=== PATIENT | female | born 1965 | race Caucasian/White ===

== ENCOUNTER 2022-08-16 14:27 | Inpatient (IN) ==
[2022-08-16] MEDS ORDERED: ALBUT/IPRATROP 3MG/0.5MG NEB 3 ML VIAL NEB STA ×2 (14:42→17:43)
--- NOTE | 2022-08-16 14:42 | Emergency Department Note ---
History of Present Illness General Chief Complaint: Shortness of Breath/Dyspnea Stated Complaint: SHORTNESS OF BREATH Time Seen by Provider: 08/16/22 14:34 History of Present Illness Provider Complaint: shortness of breath Onset (ago): day(s) (5) Severity: mild Consistency/Duration: + constant Maximum Pain Intensity: 2 Current Pain Intensity: 2 Relieved By: + nothing Exacerbated By: + exertion and + coughing Context: no choking/aspiration, no recent travel or no trauma/injury Known history of: COPD and other (lung cancer) Associated symptoms: + chest pain, + fever, + cough, + wheezing, + sputum production and + chest congestion; no lower extremity pain, no polyuria, no palpitations, no hemoptysis, no diaphoresis, no nausea/vomiting, no syncope, no abdominal pain or no rash Home Medications Medication Instructions Recorded Confirmed Type bupropion HCl 150 mg tablet,12 hr 150 mg PO BID 09/04/19 08/16/22 History sustained-release calcium carbonate 500 mg-vitamin 1 tab PO BID 09/04/19 08/16/22 History D3 5 mcg (200 unit) tablet (Calcium 500 + D) sertraline 50 mg tablet 50 mg PO HS 09/04/19 08/16/22 History tiotropium bromide 18 mcg capsule 1 cap inhalation QAM 09/04/19 08/16/22 History with inhalation device (Spiriva with HandiHaler) budesonide-formoterol HFA 160 2 puff inhalation BID 09/16/19 08/16/22 History mcg-4.5 mcg/actuation aerosol inhaler (Symbicort) Marijuana 1 dose inhalation UD PRN 11/25/20 08/16/22 History PAIN/ANXIETY fluticasone propionate 50 1 spray intranasal QAM 11/25/20 08/16/22 History mcg/actuation nasal spray,suspension benzonatate 100 mg capsule 100 mg PO TID PRN Cough 08/16/22 08/16/22 History cyclobenzaprine 10 mg tablet 10 mg PO HS PRN Muscle Spasm 08/16/22 08/16/22 History losartan 50 mg tablet 50 mg PO DAILY 08/16/22 08/16/22 History prochlorperazine maleate 10 mg 10 mg PO Q6H PRN Nausea 08/16/22 08/16/22 History tablet Allergies Allergy/AdvReac Type Severity Reaction Status Date / Time Penicillins Allergy Intermediate Hives Verified 08/16/22 16:07 Sulfa (Sulfonamide Allergy Intermediate Hives, Verified 08/16/22 16:07 Antibiotics) possible dyspnea Past Med/Surg History Medical History (Updated 08/16/22 @ 18:[address] PA-C) COPD (chronic obstructive pulmonary disease) stable Depression Diverticular disease GERD (gastroesophageal reflux disease) occasional HTN (hypertension) Kidney stone Non-small cell carcinoma of lung Obesity Seasonal allergies Sleep apnea cannot tolerate CPAP Surgical History History of cholecystectomy History of colonoscopy History of esophagogastroduodenoscopy (EGD) History of lithotripsy x3; S/P Cystoscopy, right ureteroscopy, RPG, stent, laser lithotripsy (11/02/19): LMA#4 at [facility] History of lumbar fusion L4-5 History of total hysterectomy History of tubal ligation History of wisdom tooth extraction Nausea and vomiting after administration of anesthetic agent Family History Daughter Family history of diabetes mellitus (DM) Uncle Family history of diabetes mellitus (DM) Grandfather FHx: colon cancer Grandfather (Paternal) FHx: colon cancer Mother Cancer Grandmother (Maternal) Heart disease Social History Smoking Status: Former smoker Tobacco Type: Cigarettes Second Hand Exposure: Yes (IN THE PAST); Hx Alcohol Use: Yes Alcohol type: beer and hard liquor Hx Substance Use: Yes Substance Use Type Other:: Medical marijuana use (use daily, inhalation) Preferred Language: Ukrainian Communication Ability: Effective Visual Impairment: No Limitations Entry Operator Required: No Beliefs That Will Affect Care: None Current Living Situation: Family Current Living Situation Comment: SISTER Feels Safe at Home: Yes Assistive Devices: Denture - Upper and Glasses Review of Systems A total of 10 systems reviewed and were otherwise negative Physical Exam Vital Signs: Vital Signs - 24 hr 08/16/22 14:28 08/16/22 15:10 08/16/22 15:03 Temperature 36.9 C Temperature Source Oral Pulse Rate 121 H Pulse Rate from Sp O2 Sensor 121 H Respiratory Rate 16 Respiratory Effort / Characteristics Non-Labored Sponta neous SOB on Exert ion Respiratory Depth Normal Respiratory Patter n Regular Blood Pressure 124/84 Blood Pressure Melani n 97 Pulse Oximetry 94 Oxygen Delivery Me thod Room Air Sepsis Recent Feve r Within 48 Hours Yes Sepsis New/Unexpla ined Change in Men nino Status N/A Sepsis Action Take n by Nursing No Action Required 08/16/22 16:00 08/16/22 17:00 08/16/22 17:32 Temperature Temperature Source Pulse Rate 117 H 109 H 114 H Pulse Rate from Sp O2 Sensor 116 H 109 H 114 H Respiratory Rate 18 18 20 Respiratory Effort / Characteristics Respiratory Depth Respiratory Patter n Blood Pressure 117/92 112/77 134/91 Blood Pressure Melani n 100 88 105 Pulse Oximetry 92 93 97 Oxygen Delivery Me thod Sepsis Recent Feve r Within 48 Hours Sepsis New/Unexpla ined Change in Men nino Status Sepsis Action Take n by Nursing 08/16/22 18:00 Temperature Temperature Source Pulse Rate 105 H Pulse Rate from Sp O2 Sensor 106 H Respiratory Rate 25 H Respiratory Effort / Characteristics Respiratory Depth Respiratory Patter n Blood Pressure 115/77 Blood Pressure Melani n 89 Pulse Oximetry 93 Oxygen Delivery Me thod Sepsis Recent Feve r Within 48 Hours Sepsis New/Unexpla ined Change in Men nino Status Sepsis Action Take n by Nursing Physical Exam: Physical Exam GENERAL: She is oriented to person, place, and time. She appears well-developed and well-nourished. She does not appear distressed. HENT: Exam performed. -Head: Normocephalic and atraumatic. -Right Ear: External ear normal. No mastoid tenderness. -Left Ear: External ear normal. No mastoid tenderness. -Mouth/Throat: The oropharynx is clear and moist. No trismus in the jaw. No dental abscesses or uvula swelling. No oropharyngeal exudate or tonsillar abscesses. EYES: Conjunctivae and EOM are normal. Pupils are equal, round, and reactive to light. Right eye exhibits no discharge. Left eye exhibits no discharge. No scleral icterus. NECK: Normal range of motion. Neck supple. No JVD present. No spinous process tenderness present. No carotid bruit present. No rigidity. No tracheal deviation and normal range of motion present. No Brudzinski's sign and no Kernig's sign noted. CV: Normal rate, regular rhythm, normal heart sounds and intact distal pulses. There is no peripheral edema. Palpable radial pulses bue. PULM/CHEST: Scant expiratory wheezes bilaterally. -Chest Wall: She exhibits no tenderness. ABD: The abdomen is soft. Bowel sounds are normal. She has no distension. No mass is present. There is no tenderness. There is no rebound, no guarding, no Harper's sign and no tenderness at McBurney's point. Rovsig negative MUSC/SKEL: Normal range of motion. There is no peripheral edema, tenderness or deformity. LYMPH: No cervical adenopathy. NEURO: She is alert and oriented to person, place, and time. She has normal strength. No cranial nerve deficit or sensory deficit. Coordination and gait normal. GCS eye subscore is 4. GCS verbal subscore is 5. GCS motor subscore is 6. Cerebellar tests wnl. SKIN: Skin is warm and dry. She is not diaphoretic. PSYCH: She has a normal mood and affect. Behavior is normal. Judgment and thought content normal. Course Course 1434: The patient was evaluated in room B7. A complete history and physical exam was performed Cardiac monitoring: An order was placed for continuous cardiac monitoring. The monitor shows a rate of 100 with sinus rhythm 1730: Vital signs stable. Labs within normal limits with exception of magnesium 1.1. Magnesium repletion restart in the emergency department. CT of the chest negative for PE. Patient does state that she felt better after receiving 1 DuoNeb. On real sedation lungs patient is having increased wheezing after DuoNeb treatment. We will repeat DuoNeb treatments and treat the patient with Solu-Medrol. Patient will be admitted to the [facility]ist team for COPD exacerbation as well as hypomagnesemia. 1754: Discussed case with Nathaly BRENNAN for [facility] who stated to admit to Dr. Vincent. Administered Medications Discontinued Medications Albuterol (Albut/Ipratrop 3mg/0.5mg Neb 3 Ml Vial) 3 ml NEB NOW STA; Protocol Stop: 08/16/22 14:43 Last Admin: 08/16/22 15:16 Dose: 3 ml Documented By: MT Albuterol (Albut/Ipratrop 3mg/0.5mg Neb 3 Ml Vial) 3 ml NEB NOW STA; Protocol Stop: 08/16/22 17:44 Last Admin: 08/16/22 17:57 Dose: 3 ml Documented By: MIMI Magnesium Sulfate/Dextrose (Magnesium Sulfate / D5w) 1 gm in 100 mls @ 100 mls/hr IV Q1H FREDI Stop: 08/16/22 18:17 Last Infusion: 08/16/22 18:37 Dose: 0 mls/hr Documented By: Admin: 08/16/22 17:33 Dose: 100 mls/hr Documented By: Infusion: 08/16/22 17:33 Dose: 100 mls/hr Documented By: Admin: 08/16/22 16:39 Dose: 100 mls/hr Documented By: JUN Ioversol (Optiray 320 500ml) 120 ml IV ONCE ONE Stop: 08/16/22 16:28 Last Admin: 08/16/22 16:27 Dose: 120 ml Documented By: ANDREI Methylprednisolone (Methylprednisolone 125 Mg/2 Ml Vial) 125 mg IV NOW STA Stop: 08/16/22 17:44 Last Admin: 08/16/22 17:57 Dose: 125 mg Documented By: MIMI Medical Decision Making Laboratory Data Result diagrams: 08/16/22 15:02 08/16/22 15:02 Lab Results 08/16/22 08/16/22 08/16/22 Range/Units 15:02 15:02 15:02 WBC 4.68 L (4.8-10.8) K/ul RBC 2.68 L (3.93-5.22) M/uL Hgb 9.8 L (12.0-16.0) g/dl Hct 28.1 L (34.1-44.9) % MCV 104.9 H (80.0-100.0) fL MCH 36.6 H (25.0-34.0) pg MCHC 34.9 (32.0-36.0) g/dL RDW Std Deviation 48.9 H (36.4-46.3) fL RDW Coeff of Shai 13.5 (11.5-14.5) % Plt Count 203 (130-400) K/uL MPV 9.8 (9.4-12.3) fL Immature Gran % (Auto) 1.5 % Neut % (Auto) 64.7 % Lymph % (Auto) 13.5 % [place] % (Auto) 19.9 % Eos % (Auto) 0.0 % Baso % (Auto) 0.4 % Neut # (Auto) 3.03 (1.4-6.5) K/uL Lymph # (Auto) 0.63 L (1.2-3.4) K/uL [place] # (Auto) 0.93 H (0.24-0.82) K/uL Eos # (Auto) 0.00 (0-0.50) K/uL Baso # (Auto) 0.02 (0-0.2) K/uL Immature Gran # (Auto) 0.07 H (0.00-0.02) K/uL Absolute Nucleated RBC 0.14 H (0-0) K/uL Nucleated RBC % (auto) 3.0 % RBC Morphology Unremarkable PT (9.0-12.0) Seconds INR (0.9-1.1) APTT (21.0-31.0) Seconds PTT Ratio VBG pH (7.36-7.41) VBG pCO2 (38-50) mmHg VBG pO2 mmHg VBG HCO3 mmol/L VBG O2 Saturation % VBG Base Excess mEq/L Sodium 137 (136-145) mmol/L Potassium 3.6 (3.5-5.1) mmol/L Chloride 103 (98-107) mmol/L Carbon Dioxide 24 (21-32) mmol/L Anion Gap 10 (3-11) BUN 18 (6-23) mg/dl Creatinine 0.83 (0.6-1.2) mg/dl Est Cr Clr Drug Dosing 61.2 ml/min Est GFR ( Amer) 90.1 ml/min Est GFR (Non-Af Amer) 77.7 ml/min BUN/Creatinine Ratio 21.7 H (10-20) Glucose 110 H (70-99(Fasting)) mg/dl Lactate 2.0 (0.4-2.0) mmol/L Calcium 9.1 (8.5-10.1) mg/dl Magnesium 1.1 L (1.7-2.4) mg/dl Total Bilirubin 0.4 (0.2-1.0) mg/dl Direct Bilirubin 0.0 (0-0.2) mg/dl AST 22 (13-39) U/L ALT 27 (7-52) U/L Alkaline Phosphatase 69 (34-104) U/L Troponin I High Sens 7.5 (0-14) pg/ml Total Protein 6.8 (6.0-8.3) gm/dl Albumin 3.9 (3.4-5.0) gm/dl Procalcitonin (0-0.5) ng/ml SARS-CoV-2 (PCR) (Negative) Influenza Type A (PCR) (Neg) Influenza Type B (PCR) (Neg) RSV (RT-PCR) (Neg) Blood Type Antibody Screen 08/16/22 08/16/22 08/16/22 Range/Units 15:02 15:02 15:02 WBC (4.8-10.8) K/ul RBC (3.93-5.22) M/uL Hgb (12.0-16.0) g/dl Hct (34.1-44.9) % MCV (80.0-100.0) fL MCH (25.0-34.0) pg MCHC (32.0-36.0) g/dL RDW Std Deviation (36.4-46.3) fL RDW Coeff of Shai (11.5-14.5) % Plt Count (130-400) K/uL MPV (9.4-12.3) fL Immature Gran % (Auto) % Neut % (Auto) % Lymph % (Auto) % [place] % (Auto) % Eos % (Auto) % Baso % (Auto) % Neut # (Auto) (1.4-6.5) K/uL Lymph # (Auto) (1.2-3.4) K/uL [place] # (Auto) (0.24-0.82) K/uL Eos # (Auto) (0-0.50) K/uL Baso # (Auto) (0-0.2) K/uL Immature Gran # (Auto) (0.00-0.02) K/uL Absolute Nucleated RBC (0-0) K/uL Nucleated RBC % (auto) % RBC Morphology PT 10.4 (9.0-12.0) Seconds INR 1.0 (0.9-1.1) APTT 23.8 (21.0-31.0) Seconds PTT Ratio 0.9 VBG pH (7.36-7.41) VBG pCO2 (38-50) mmHg VBG pO2 mmHg VBG HCO3 mmol/L VBG O2 Saturation % VBG Base Excess mEq/L Sodium (136-145) mmol/L Potassium (3.5-5.1) mmol/L Chloride (98-107) mmol/L Carbon Dioxide (21-32) mmol/L Anion Gap (3-11) BUN (6-23) mg/dl Creatinine (0.6-1.2) mg/dl Est Cr Clr Drug Dosing ml/min Est GFR ( Amer) ml/min Est GFR (Non-Af Amer) ml/min BUN/Creatinine Ratio (10-20) Glucose (70-99(Fasting)) mg/dl Lactate (0.4-2.0) mmol/L Calcium (8.5-10.1) mg/dl Magnesium (1.7-2.4) mg/dl Total Bilirubin (0.2-1.0) mg/dl Direct Bilirubin (0-0.2) mg/dl AST (13-39) U/L ALT (7-52) U/L Alkaline Phosphatase (34-104) U/L Troponin I High Sens (0-14) pg/ml Total Protein (6.0-8.3) gm/dl Albumin (3.4-5.0) gm/dl Procalcitonin < 0.05 (0-0.5) ng/ml SARS-CoV-2 (PCR) (Negative) Influenza Type A (PCR) (Neg) Influenza Type B (PCR) (Neg) RSV (RT-PCR) (Neg) Blood Type O Positive Antibody Screen NEGATIVE 08/16/22 08/16/22 Range/Units 15:02 15:10 WBC (4.8-10.8) K/ul RBC (3.93-5.22) M/uL Hgb (12.0-16.0) g/dl Hct (34.1-44.9) % MCV (80.0-100.0) fL MCH (25.0-34.0) pg MCHC (32.0-36.0) g/dL RDW Std Deviation (36.4-46.3) fL RDW Coeff of Shai (11.5-14.5) % Plt Count (130-400) K/uL MPV (9.4-12.3) fL Immature Gran % (Auto) % Neut % (Auto) % Lymph % (Auto) % [place] % (Auto) % Eos % (Auto) % Baso % (Auto) % Neut # (Auto) (1.4-6.5) K/uL Lymph # (Auto) (1.2-3.4) K/uL [place] # (Auto) (0.24-0.82) K/uL Eos # (Auto) (0-0.50) K/uL Baso # (Auto) (0-0.2) K/uL Immature Gran # (Auto) (0.00-0.02) K/uL Absolute Nucleated RBC (0-0) K/uL Nucleated RBC % (auto) % RBC Morphology PT (9.0-12.0) Seconds INR (0.9-1.1) APTT (21.0-31.0) Seconds PTT Ratio VBG pH 7.39 (7.36-7.41) VBG pCO2 41 (38-50) mmHg VBG pO2 47 mmHg VBG HCO3 25 mmol/L VBG O2 Saturation 82.0 % VBG Base Excess -0.2 mEq/L Sodium (136-145) mmol/L Potassium (3.5-5.1) mmol/L Chloride (98-107) mmol/L Carbon Dioxide (21-32) mmol/L Anion Gap (3-11) BUN (6-23) mg/dl Creatinine (0.6-1.2) mg/dl Est Cr Clr Drug Dosing ml/min Est GFR ( Amer) ml/min Est GFR (Non-Af Amer) ml/min BUN/Creatinine Ratio (10-20) Glucose (70-99(Fasting)) mg/dl Lactate (0.4-2.0) mmol/L Calcium (8.5-10.1) mg/dl Magnesium (1.7-2.4) mg/dl Total Bilirubin (0.2-1.0) mg/dl Direct Bilirubin (0-0.2) mg/dl AST (13-39) U/L ALT (7-52) U/L Alkaline Phosphatase (34-104) U/L Troponin I High Sens (0-14) pg/ml Total Protein (6.0-8.3) gm/dl Albumin (3.4-5.0) gm/dl Procalcitonin (0-0.5) ng/ml SARS-CoV-2 (PCR) NEGATIVE (Negative) Influenza Type A (PCR) Negative (Neg) Influenza Type B (PCR) Negative (Neg) RSV (RT-PCR) Positive A* (Neg) Blood Type Antibody Screen Imaging Data Radiologist's Impression: Chest CTA 08/16/22 14:42 CT angio chest PE protocol CT DOSE: 306.64 mGy.cm HISTORY: 57 years-old Female with ro PE. Acute chest tightness with shortness of breath TECHNIQUE: Multiple CTA images of the chest were obtained after the intravenous administration of 120 ml Optiray. Coronal and sagittal MIPS were obtained from the axial data set and were submitted for review. All measurements were obtained according to NASCET criteria. A dose lowering technique was utilized adhering to the principles of ALARA. COMPARISON: Chest radiograph 12/05/2020, chest CT from outside facility 05/23/2020, CTA chest 12/29/2015 FINDINGS: CTA: Subcentimeter hypodense left-sided thyroid nodule. No pathologically enlarged lymph nodes identified. The heart is normal in size without pericardial effusion. Atherosclerosis of the thoracic aorta without aneurysm. There is patency of the imaged great vessels. There is a least mild stenosis of the proximal celiac artery. No pulmonary emboli are identified. CT CHEST: No pneumothorax, pleural effusion, airspace consolidation or overt pulmonary edema. Bronchial wall thickening. Scattered calcified pulmonary granulomata with areas of subsegmental atelectasis/scarring. Tiny bibasilar predominant noncalcified pulmonary nodules measure up to 1-2 mm. There is suggestion of mild pulmonary emphysema. Calcified structure adjacent to the spleen redemonstrated, 4.2 cm. Cortical calcification measuring 4 mm noted within the left kidney on image 6 series 4 with adjacent area of parenchymal scarring. Cholecystectomy. No acute process of the imaged upper abdomen. Unremarkable soft tissues. There are a few healed chronic anterior right-sided rib fractures. No acute fracture is identified. IMPRESSION: 1. No pulmonary emboli identified. 2. Bronchial wall thickening suggestive of bronchitis or reactive airway disease. 3. Numerous calcified pulmonary granulomata are noted in addition to tiny bibasilar predominant noncalcified pulmonary nodules measuring 1-2 mm, likely infectious or inflammatory. 4. No lymphadenopathy. ACT 112: Negative or not required by law. The above report was generated using voice recognition software. It may contain grammatical, syntax or spelling errors. Electronically signed by: Adam Alonso M.D. 08/16/2022 4:48 PM ECG Data Interpretation: Sinus tachycardia with rate of 116: LA QRS and QTc intervals within normal limit s. No ST elevation or ST depression. [facility] Narrative 1434: The patient was evaluated in room B7. A complete history and physical exam was performed Cardiac monitoring: An order was placed for continuous cardiac monitoring. The monitor shows a rate of 100 with sinus rhythm 1730: Vital signs stable. Labs within normal limits with exception of magnesium 1.1. Magnesium repletion restart in the emergency department. CT of the chest negative for PE. Patient does state that she felt better after receiving 1 DuoNeb. On real sedation lungs patient is having increased wheezing after DuoNeb treatment. We will repeat DuoNeb treatments and treat the patient with Solu-Medrol. Patient will be admitted to the [facility] hospitalist team for COPD exacerbation as well as hypomagnesemia. 1754: Discussed case with Nathaly BRENNAN for [facility] who stated to admit to Dr. Vincent. Impression & Plan COPD (chronic obstructive pulmonary disease), Hypomagnesemia, Respiratory syncytial virus (RSV) Discharge Plan Visit Data Chief Complaint: Shortness of Breath/Dyspnea Stated Complaint: SHORTNESS OF BREATH ED Provider: Tyrone Galeas Discharge Problem: COPD (chronic obstructive pulmonary disease), Hypomagnesemia, Respiratory syncytial virus (RSV) Patient Disposition: Admitted As Inpatient Forms Stand Alone Forms: [facility] Prescriptions Prescriptions: No Action budesonide-formoterol [Symbicort] 160-4.5 mcg/actuation Hfa Aerosol Inhaler 2 puff INHALATION BID bupropion HCl 150 mg tablet sustained-release 12 hr 150 mg PO BID sertraline 50 mg tablet 50 mg PO HS Spiriva with HandiHaler 18 mcg capsule, w/inhalation device 1 cap INHALATION QAM calcium carbonate-vitamin D3 [Calcium 500 + D] 500 mg(1,250mg) -200 unit Tablet 1 tab PO BID fluticasone propionate 50 mcg/actuation [place],Suspension 1 spray INTRANASAL QAM Marijuana 1 dose inhalation UD PRN (Reason: PAIN/ANXIETY) losartan 50 mg tablet 50 mg PO DAILY cyclobenzaprine 10 mg tablet 10 mg PO HS PRN (Reason: Muscle Spasm) prochlorperazine maleate 10 mg tablet 10 mg PO Q6H PRN (Reason: Nausea) benzonatate 100 mg capsule 100 mg PO TID PRN (Reason: Cough) Referrals Referrals: Ivy Holden PA-C [Primary Care Provider] -
[2022-08-16 15:22] LABS: Basophils # (auto) 0.02 K/uL (0-0.2); Basophils % (auto) 0.4 %; Hematocrit (blood only) 28.1 % (34.1-44.9); Hemoglobin 9.8 g/dl (12.0-16.0); Immature Granulocytes # (auto) 0.07 K/uL (0.00-0.02); Immature Granulocytes % (auto) 1.5 %; Lymphocytes # (auto) 0.63 K/uL (1.2-3.4); Lymphocytes % (auto) 13.5 %; Mean Corpuscular Hemoglobin 36.6 pg (25.0-34.0); Mean Corpuscular Hgb Conc 34.9 g/dL (32.0-36.0); Mean Corpuscular Volume 104.9 fL (80.0-100.0); Mean Platelet Volume 9.8 fL (9.4-12.3); Monocytes # (auto) 0.93 K/uL (0.24-0.82); Monocytes % (auto) 19.9 %; Neutrophils # (auto) 3.03 K/uL (1.4-6.5); Neutrophils % (auto) 64.7 %; Nucleated RBC # (auto) 0.14 K/uL (0-0); Platelet Count 203 K/uL (130-400); RDW Coefficient of Variation 13.5 % (11.5-14.5); RDW Standard Deviation 48.9 fL (36.4-46.3); Red Blood Count 2.68 M/uL (3.93-5.22); White Blood Count 4.68 K/ul (4.8-10.8)
[2022-08-16 15:27] LABS: Base Excess VBG -0.2 mEq/L; HCO3 VBG 25 mmol/L; PCO2 VBG 41 mmHg (38-50); PO2 VBG 47 mmHg; pH VBG 7.39 (7.36-7.41)
[2022-08-16 15:35] LABS: Partial Thromboplastin Ratio 0.9; Partial Thromboplastin Time 23.8 Seconds (21.0-31.0); Prothrombin Time 10.4 Seconds (9.0-12.0)
[2022-08-16 15:39] LABS: RBC Morphology Unremarkable
[2022-08-16 15:49] LABS: Troponin I High Sensitivity 7.5 pg/ml (0-14)
[2022-08-16 15:57] LABS: Albumin Level 3.9 gm/dl (3.4-5.0); BUN Creatinine Ratio 21.7 (10-20); Bilirubin,Total 0.4 mg/dl (0.2-1.0); Calcium 9.1 mg/dl (8.5-10.1); Creatinine Clr Calc Pharmacy 61.2 ml/min; Est GFR (African American) 90.1 ml/min; Est GFR (Non-African American) 77.7 ml/min; Magnesium 1.1 mg/dl (1.7-2.4); Potassium 3.6 mmol/L (3.5-5.1); Total Protein 6.8 gm/dl (6.0-8.3)
[2022-08-16 15:58] LABS: Influenza A virus by PCR Negative (Neg); Influenza B virus by PCR Negative (Neg); SARS CoV2 RNA(COVID-19)Cepheid NEGATIVE (Negative)
[2022-08-16 16:17] LABS: RSV by PCR Positive (Neg)
[2022-08-16] MEDS ORDERED: OPTIRAY 320 500ml IV ONE (16:27)
[2022-08-16] MEDS: MAGNESIUM SULFATE / D5W 1 GM/100 ML BAG IV SCH ×2 (16:39→17:33)
--- NOTE | 2022-08-16 16:49 | CT Scan Report ---
CT angio chest PE protocol CT DOSE: 306.64 mGy.cm HISTORY: 57 years-old Female with ro PE. Acute chest tightness with shortness of breath TECHNIQUE: Multiple CTA images of the chest were obtained after the intravenous administration of 120 ml Optiray. Coronal and sagittal MIPS were obtained from the axial data set and were submitted for review. All measurements were obtained according to NASCET criteria. A dose lowering technique was u tilized adhering to the principles of ALARA. COMPARISON: Chest radiograph 12/05/2020, chest CT from outside facility 05/23/2020, CTA chest 12/29/2015 FINDINGS: CTA: Subcentimeter hypodense left-sided thyroid nodule. No pathologically enlarged lymph nodes identified. The heart is normal in size without pericardial effusion. Atherosclerosis of the thoracic aorta with out aneurysm. There is patency of the imaged great vessels. There is a least mild stenosis of the pro ximal celiac artery. No pulmonary emboli are identified. CT CHEST: No pneumothorax, pleural effusion, airspace consolidation or overt pulmonary edema. Bronchial wall th ickening. Scattered calcified pulmonary granulomata with areas of subsegmental atelectasis/scarring. Tiny bibasilar predominant noncalcified pulmonary nodules measure up to 1-2 mm. There is suggestion o f mild pulmonary emphysema. Calcified structure adjacent to the spleen redemonstrated, 4.2 cm. Cortical calcification measuring 4 mm noted within the left kidney on image 6 series 4 with adjacent area of parenchymal scarring. Chol ecystectomy. No acute process of the imaged upper abdomen. Unremarkable soft tissues. There are a few healed chronic anterior right-sided rib fractures. No acute fracture is identified. IMPRESSION: 1. No pulmonary emboli identified. 2. Bronchial wall thickening suggestive of bronchitis or reactive airway disease. 3. Numerous calcified pulmonary granulomata are noted in addition to tiny bibasilar predominant nonca lcified pulmonary nodules measuring 1-2 mm, likely infectious or inflammatory. 4. No lymphadenopathy. ACT 112: Negative or not required by law. The above report was generated using voice recognition software. It may contain grammatical, syntax o r spelling errors. Electronically signed by: Adam Alonso M.D. 08/16/2022 4:48 PM
--- NOTE | 2022-08-16 17:16 | Electrocardiogram Report ---
Test Reason : Blood Pressure : / mmHG Vent. Rate : 116 BPM Atrial Rate : 116 BPM P-R Int : 156 ms QRS Dur : 080 ms QT Int : 314 ms P-R-T Axes : 066 057 062 degrees QTc Int : 436 ms Sinus tachycardia Otherwise normal ECG When compared with ECG of 05-DEC-2020 10:06, Vent. rate has increased BY 53 BPM Confirmed by Julian Fung ([id number]) on 08/16/2022 5:16:25 PM Referred By: Confirmed By:Benedict Fung
[2022-08-16] MEDS ORDERED: methylPREDNISolone 125 MG/2 ML VIAL IV STA (17:43)
--- NOTE | 2022-08-16 18:05 | History & Physical Report ---
Date of Service August 16, 2022 Assessment & Plan (1) Respiratory syncytial virus (RSV): Plan: This is a 57-year-old female with PMHx of recently diagnosed (April 2022) left lower lobe non-small cell lung cancer undergoing chemotherapy treatment with paclitaxel and carboplatin weekly since 07/02/2022, last received on 07/30/2022, radiation therapy, followed by immunotherapy with durvalumab, COPD, history of tobacco use, quit in December 2021, HTN, chronic back pain, anxiety and depression. - Admit to med surg with tele - positive for RSV on admission, COVID and influenza negative - Patient is currently not hypoxic although is tachycardic, leukopenia, immunosuppressed with recent chemotherapy due to non-small cell lung carcinoma nearly meeting SIRs criteria. - IV ceftriaxone and azithromycin p.o., continue leave albuterol QID and Q2H prn, tessalon pearls - No further steroids at this time as no wheezing, o2 sats stable, given solumedrol 125 mg IV in the ER, can continue Symbicort inh - WBC = 4.68 - BCx x 2, follow - Afebrile - Lactic acid = 2.0, Procalcitonin negative - CT of the chest reviewed showing acute bronchitis, no PE, (2) Dyspnea: (3) Non-small cell carcinoma of lung: (4) Asthmatic bronchitis: (5) COPD (chronic obstructive pulmonary disease): (6) Hypomagnesemia: Plan: - Mag 1.1 on admission, given 1 g IV in the ER, will give another 1g IV, follow with am labs (7) HTN (hypertension): Plan: - Continue losartan daily (8) Depression: Plan: - May continue zoloft, wellbutrin DVT ppx: - teds, scds, Lovenox subcu CODE: Full code Dispo: From home, likely to remain in the hospital x 1-2 days History of Present Illness Chief Complaint: dyspnea Primary Care Provider: Ivy Holden PA-C This is a 57-year-old female with PMHx of recently diagnosed (April 2022) left lower lobe non-small cell lung cancer undergoing chemotherapy treatment with paclitaxel and carboplatin weekly since 07/02/2022, last received on 07/30/2022, radiation therapy, followed by immunotherapy with durvalumab, COPD, history of tobacco use, quit in December 2021, HTN, chronic back pain, anxiety and depression. The patient presents here with having cold-like symptoms which started last Saturday, and have progressed throughout the week. She notes that for the past 3 days she has been increasing shortness of breath with minimal ADLs, where at times while she was walking she needed to sit down due to significant shortness of breath, wheezing and feeling lightheaded specifically with coughing fits. With coughing she is producing thick yellow/green mucus, denies hemoptysis. Patient had an episode of feeling hot last Saturday evening however since then denies any other fever-like symptoms, chills or sweats. Denies any chest pain, palpitations or flutter. P.o. intake has been adequate, and was able to take all of her routine medications earlier today. Admits to occasional constipation, last BM was today. She lives at home with her sister, and daughter rents out the basement of her house who both have had viral-like symptoms as well. She recently completed chemotherapy on 07/30/2022 and 30 radiation treatments, and was scheduled to have an outpatient PET/CT tomorrow to determine next course per her primary oncologist. She feels improved after having an albuterol nebulizer treatment in the ER. Patient is not hypoxic, O2 sats are 93% on room air and have been steady since arrival. Heart rate is elevated in the 110s. WBC = 4.68. Mag is low at 1.1. Allergies Allergy/AdvReac Type Severity Reaction Status Date / Time Penicillins Allergy Intermediate Hives Verified 08/16/22 16:07 Sulfa (Sulfonamide Allergy Intermediate Hives, Verified 08/16/22 16:07 Antibiotics) possible dyspnea Home Medications Medication Instructions Recorded Confirmed Type bupropion HCl 150 mg tablet,12 hr 150 mg PO BID 09/04/19 08/16/22 History sustained-release calcium carbonate 500 mg-vitamin 1 tab PO BID 09/04/19 08/16/22 History D3 5 mcg (200 unit) tablet (Calcium 500 + D) sertraline 50 mg tablet 50 mg PO HS 09/04/19 08/16/22 History tiotropium bromide 18 mcg capsule 1 cap inhalation QAM 09/04/19 08/16/22 History with inhalation device (Spiriva with HandiHaler) budesonide-formoterol HFA 160 2 puff inhalation BID 09/16/19 08/16/22 History mcg-4.5 mcg/actuation aerosol inhaler (Symbicort) Marijuana 1 dose inhalation UD PRN 11/25/20 08/16/22 History PAIN/ANXIETY fluticasone propionate 50 1 spray intranasal QAM 11/25/20 08/16/22 History mcg/actuation nasal spray,suspension benzonatate 100 mg capsule 100 mg PO TID PRN Cough 08/16/22 08/16/22 History cyclobenzaprine 10 mg tablet 10 mg PO HS PRN Muscle Spasm 08/16/22 08/16/22 History losartan 50 mg tablet 50 mg PO DAILY 08/16/22 08/16/22 History prochlorperazine maleate 10 mg 10 mg PO Q6H PRN Nausea 08/16/22 08/16/22 History tablet Past Med/Surg History Medical History COPD (chronic obstructive pulmonary disease) stable Depression Diverticular disease GERD (gastroesophageal reflux disease) occasional HTN (hypertension) Kidney stone Non-small cell carcinoma of lung Obesity Seasonal allergies Sleep apnea cannot tolerate CPAP Surgical History History of cholecystectomy History of colonoscopy History of esophagogastroduodenoscopy (EGD) History of lithotripsy x3; S/P Cystoscopy, right ureteroscopy, RPG, stent, laser lithotripsy (11/02/19): LMA#4 at [facility] History of lumbar fusion L4-5 History of total hysterectomy History of tubal ligation History of wisdom tooth extraction Nausea and vomiting after administration of anesthetic agent Family History Daughter Family history of diabetes mellitus (DM) Uncle Family history of diabetes mellitus (DM) Grandfather FHx: colon cancer Grandfather (Paternal) FHx: colon cancer Mother Cancer Grandmother (Maternal) Heart disease Social History Smoking Status: Former smoker Tobacco Type: Cigarettes Second Hand Exposure: Yes (IN THE PAST); Hx Alcohol Use: Yes Alcohol type: beer and hard liquor Hx Substance Use: Yes Substance Use Type Other:: Medical marijuana use (use daily, inhalation) Preferred Language: Malian Communication Ability: Effective Visual Impairment: No Limitations Art Director Required: No Beliefs That Will Affect Care: None Current Living Situation: Family Current Living Situation Comment: SISTER Feels Safe at Home: Yes Assistive Devices: Denture - Upper and Glasses Review of Systems Review of Systems: Constitutional: No fever, sweats or chills, + generalized malaise/weakness Eyes: No diplopia, no worsening or blurred vision ENT: normal hearing, no trouble swallowing Respiratory: + As per HPI, + cough, + yellow-green sputum, dyspnea on exertion but not at rest, does not wear supplemental O2 at baseline Cardiovascular: No chest pain, tightness or palpitations, + episode of lightheadedness with coughing fits Abdomen: No pain, nausea, vomiting, diarrhea or constipation, last BM this morning Musculoskeletal: No joint pain, calf pain, swelling Neurologic: + Generalized weakness, no numbness/tingling, or balance problems Psychiatric: No anxiety or depression Skin: No rash or itch Physical Exam Physical Exam: General: awake, alert, no apparent distress, + thinning hair/hair falling out Head: Normocephalic, atraumatic ENT: PERRL, EOMI, no pharyngeal exudate, mucous membranes moist, no mucositis or oral thrush Chest: on room air, O2 sats are 93%, just completed nebulizer treatment at bedside, diminished breath sounds throughout, no adventitious breath sounds Cardiac: + Sinus tach with HR in the 105-110 at rest, no murmur, no JVD, normal peripheral pulses, good capillary refill Abdominal: NABS x 4 quadrants, soft, nondistended, nontender to palpation, no rebound or guarding Extremities: Normal inspection, no peripheral edema or erythema, calfs nontender to palpation Psych: Normal mood and affect Neuro: AAO x 3, strength intact bilaterally and rated 5/5, no motor deficits, speech is clear, no peripheral sensory deficits Results & Data Results & Data ([facility]) Vital Signs (Past 12 Hours) Vital Signs Temp Pulse Resp BP Pulse Ox O2 Del Method 08/16/22 17:32 114 H 20 134/91 97 08/16/22 17:00 109 H 18 112/77 93 08/16/22 16:00 117 H 18 117/92 92 08/16/22 15:03 121 H 16 124/84 94 08/16/22 15:10 Room Air 08/16/22 14:28 36.9 C Laboratory Results 08/16/22 15:11 Aerobic Blood Culture - Pending Blood Anaerobic Blood Culture - Pending 08/16/22 15:02 Aerobic Blood Culture - Pending Blood Anaerobic Blood Culture - Pending 08/16/22 08/16/22 08/16/22 15:10 15:02 15:02 WBC RBC Hgb Hct MCV MCH MCHC RDW Std Deviation RDW Coeff of Shai Plt Count MPV Immature Gran % (Auto) Neut % (Auto) Lymph % (Auto) [place] % (Auto) Eos % (Auto) Baso % (Auto) Neut # (Auto) Lymph # (Auto) [place] # (Auto) Eos # (Auto) Baso # (Auto) Immature Gran # (Auto) Absolute Nucleated RBC Nucleated RBC % (auto) RBC Morphology PT 10.4 INR 1.0 APTT 23.8 PTT Ratio 0.9 VBG pH 7.39 VBG pCO2 41 VBG pO2 47 VBG HCO3 25 VBG O2 Saturation 82.0 VBG Base Excess -0.2 Sodium Potassium Chloride Carbon Dioxide Anion Gap BUN Creatinine Est Cr Clr Drug Dosing Est GFR ( Amer) Est GFR (Non-Af Amer) BUN/Creatinine Ratio Glucose Lactate Calcium Magnesium Total Bilirubin Direct Bilirubin AST ALT Alkaline Phosphatase Troponin I High Sens Total Protein Albumin Procalcitonin SARS-CoV-2 (PCR) NEGATIVE Influenza Type A (PCR) Negative Influenza Type B (PCR) Negative RSV (RT-PCR) Positive A* Blood Type Antibody Screen 08/16/22 08/16/22 08/16/22 15:02 15:02 15:02 WBC RBC Hgb Hct MCV MCH MCHC RDW Std Deviation RDW Coeff of Shai Plt Count MPV Immature Gran % (Auto) Neut % (Auto) Lymph % (Auto) [place] % (Auto) Eos % (Auto) Baso % (Auto) Neut # (Auto) Lymph # (Auto) [place] # (Auto) Eos # (Auto) Baso # (Auto) Immature Gran # (Auto) Absolute Nucleated RBC Nucleated RBC % (auto) RBC Morphology PT INR APTT PTT Ratio VBG pH VBG pCO2 VBG pO2 VBG HCO3 VBG O2 Saturation VBG Base Excess Sodium Potassium Chloride Carbon Dioxide Anion Gap BUN Creatinine Est Cr Clr Drug Dosing Est GFR ( Amer) Est GFR (Non-Af Amer) BUN/Creatinine Ratio Glucose Lactate 2.0 Calcium Magnesium Total Bilirubin Direct Bilirubin AST ALT Alkaline Phosphatase Troponin I High Sens Total Protein Albumin Procalcitonin < 0.05 SARS-CoV-2 (PCR) Influenza Type A (PCR) Influenza Type B (PCR) RSV (RT-PCR) Blood Type O Positive Antibody Screen NEGATIVE 08/16/22 08/16/22 15:02 15:02 WBC 4.68 L RBC 2.68 L Hgb 9.8 L Hct 28.1 L MCV 104.9 H MCH 36.6 H MCHC 34.9 RDW Std Deviation 48.9 H RDW Coeff of Shai 13.5 Plt Count 203 MPV 9.8 Immature Gran % (Auto) 1.5 Neut % (Auto) 64.7 Lymph % (Auto) 13.5 [place] % (Auto) 19.9 Eos % (Auto) 0.0 Baso % (Auto) 0.4 Neut # (Auto) 3.03 Lymph # (Auto) 0.63 L [place] # (Auto) 0.93 H Eos # (Auto) 0.00 Baso # (Auto) 0.02 Immature Gran # (Auto) 0.07 H Absolute Nucleated RBC 0.14 H Nucleated RBC % (auto) 3.0 RBC Morphology Unremarkable PT INR APTT PTT Ratio VBG pH VBG pCO2 VBG pO2 VBG HCO3 VBG O2 Saturation VBG Base Excess Sodium 137 Potassium 3.6 Chloride 103 Carbon Dioxide 24 Anion Gap 10 BUN 18 Creatinine 0.83 Est Cr Clr Drug Dosing 61.2 Est GFR ( Amer) 90.1 Est GFR (Non-Af Amer) 77.7 BUN/Creatinine Ratio 21.7 H Glucose 110 H Lactate Calcium 9.1 Magnesium 1.1 L Total Bilirubin 0.4 Direct Bilirubin 0.0 AST 22 ALT 27 Alkaline Phosphatase 69 Troponin I High Sens 7.5 Total Protein 6.8 Albumin 3.9 Procalcitonin SARS-CoV-2 (PCR) Influenza Type A (PCR) Influenza Type B (PCR) RSV (RT-PCR) Blood Type Antibody Screen Diagnostic Findings Chest CTA 08/16/22 14:42 CT angio chest PE protocol CT DOSE: 306.64 mGy.cm HISTORY: 57 years-old Female with ro PE. Acute chest tightness with shortness of breath TECHNIQUE: Multiple CTA images of the chest were obtained after the intravenous administration of 120 ml Optiray. Coronal and sagittal MIPS were obtained from the axial data set and were submitted for review. All measurements were obtained according to NASCET criteria. A dose lowering technique was utilized adhering to the principles of ALARA. COMPARISON: Chest radiograph 12/05/2020, chest CT from outside facility 05/23/2020, CTA chest 12/29/2015 FINDINGS: CTA: Subcentimeter hypodense left-sided thyroid nodule. No pathologically enlarged lymph nodes identified. The heart is normal in size without pericardial effusion. Atherosclerosis of the thoracic aorta without aneurysm. There is patency of the imaged great vessels. There is a least mild stenosis of the proximal celiac artery. No pulmonary emboli are identified. CT CHEST: No pneumothorax, pleural effusion, airspace consolidation or overt pulmonary edema. Bronchial wall thickening. Scattered calcified pulmonary granulomata with areas of subsegmental atelectasis/scarring. Tiny bibasilar predominant noncalcified pulmonary nodules measure up to 1-2 mm. There is suggestion of mild pulmonary emphysema. Calcified structure adjacent to the spleen redemonstrated, 4.2 cm. Cortical calcification measuring 4 mm noted within the left kidney on image 6 series 4 with adjacent area of parenchymal scarring. Cholecystectomy. No acute process of the imaged upper abdomen. Unremarkable soft tissues. There are a few healed chronic anterior right-sided rib fractures. No acute fracture is identified. IMPRESSION: 1. No pulmonary emboli identified. 2. Bronchial wall thickening suggestive of bronchitis or reactive airway disease. 3. Numerous calcified pulmonary granulomata are noted in addition to tiny bibasilar predominant noncalcified pulmonary nodules measuring 1-2 mm, likely infectious or inflammatory. 4. No lymphadenopathy. ACT 112: Negative or not required by law. The above report was generated using voice recognition software. It may contain grammatical, syntax or spelling errors. Electronically signed by: Adam Alonso M.D. 08/16/2022 4:48 PM ECG Additional Comments: Vent. Rate : 116 BPM Atrial Rate : 116 BPM P-R Int : 156 ms QRS Dur : 080 ms QT Int : 314 ms P-R-T Axes : 066 057 062 degrees QTc Int : 436 ms Sinus tachycardia Otherwise normal ECG When compared with ECG of 05-DEC-2020 10:06, Vent. rate has increased BY 53 BPM Code Status & VTE Plan Code Status Full code -discussed with the patient at bedside Supervising Physician Co-Signing Physician Notes I have seen and examined the patient and have discussed the case with the provider above. I agree with the assessment and plan as stated. Please see separate attending addendum. DO Carl[place]
[2022-08-16] MEDS ORDERED: MAGNESIUM SULFATE / D5W 1 GM/100 ML BAG IV ONE (18:58)
--- NOTE | 2022-08-16 19:27 | Communication Note ---
Date of Service: August 16, 2022 ATTENDING ADDENDUM: 57-year-old female with history of COPD and lung cancer presents with coughing fever and shortness of breath with dyspnea on exertion. She reports becoming more short of breath today while in the shower. after being ill for the past week. She is not requiring oxygen and is not working to breathe at rest. In the ER she received an neb treatment and steroids and is very jittery. Patient states she is very sensitive to steroids. Chest x-ray reveals known pulmonary nodules in setting of lung cancer. Patient is dehydrated reporting intolerance of p.o. secondary to malaise. Denies any diarrhea, and has a magnesium that is 1.1. Physical exam reveals a well-nourished well-developed female in no acute distress but with some pressured speech and shakiness. She is mentating appropriately and grossly neurologically intact. She has partial dentures in place with no evidence of thrush and mucous membranes moist. Skin is warm and dry. Lungs revealed rales throughout the left lung. There is no increased respiratory distress. Abdomen is soft nontender nondistended. Cardiac exam reveals S1-S2 heard with no evidence of murmurs gallops or rubs. There is no evidence of peripheral edema. Work-up in the ER reveals a pancytopenia with platelets in the normal range at 203K, however decreased from baseline platelets per record review, likely secondary to chemo versus infection. CMP is normal aside from magnesium 1.1. Intravenous magnesium replacement was given in the ER. Highly sensitive troponin is negative at 7.5. Procalcitonin is negative. Respiratory panel reveals positive RSV with negative flu and negative SARS-CoV-2 PCR's. Chest CTA revealed no evidence of pulmonary embolus, bronchial wall thickening was present suggestive of bronchitis, multiple pulmonary nodules with no lymphadenopathy. There was no evidence of airspace consolidation at this time and no overt pulmonary edema. EKG reveals sinus tachycardia with a rate of 116 and no evidence of ischemia. 57-year-old immunosuppressed female on chemotherapy/XRT recently completed last week presents with worsening dyspnea in the setting of RSV infection. Although procalcitonin negative and no evidence of consolidation on chest imaging, she clinically has worsening shortness of breath in setting of immunosuppression, known RSV, is a smoker of marijuana making her more likely to have pneumonia, and recently finished her first round of chemotherapy approximately 10 days ago making her most vulnerable for infection at this point. For these reasons, up agree with covering her with antibiotic therapy in the setting of possible evolving sepsis secondary to respiratory infection. Replacing magnesium overnight and she is already received 2 g in the ER. Continue with empiric antibiotics pending blood culture results and clinical improvement. Agree with holding on further steroids given lack of wheezing and history of sensitivity to steroids. Cont home inhalers including Symbicort. Alison Vincent DO [facility] Hospitalist
[2022-08-16] MEDS ORDERED: BENZONATATE 100 MG CAPSULE PO PRN (21:14)
[2022-08-16] MEDS ORDERED: CYCLOBENZAPRINE HCL 10 MG TAB PO PRN (21:14)
[2022-08-16] MEDS ORDERED: PROCHLORPERAZINE MALEATE 10 MG TAB PO PRN (21:14)
[2022-08-16] MEDS ORDERED: ACETAMINOPHEN 325 MG TAB PO PRN (21:14)
[2022-08-16] MEDS: LEVALBUTEROL HCL 1.25 MG/3 ML NEB NEB SCH (22:25)
[2022-08-16] MEDS: CALCIUM 600MG + VIT D 400 IU TAB PO SCH (22:42)
[2022-08-16] MEDS: buPROPion SR 150 MG TABCR PO SCH (22:42)
[2022-08-16] MEDS: cefTRIAXone SODIUM 1,000 MG in DEXTROSE 5% 50 ML IV SCH (22:43)
[2022-08-16] MEDS: AZITHROMYCIN 250 MG TAB PO SCH (22:43)
[2022-08-16] MEDS: SODIUM CHLORIDE 0.9% 1000ML 1,000 ML IV SCH (22:43)
[2022-08-16] MEDS: SERTRALINE HCL 50 MG TABLET PO SCH (22:43)
[2022-08-16] MEDS: FLUTICASONE/VILANTEROL 200/25MCG 14 PUFFS/INHALER INH SCH (22:44)
[2022-08-17] MEDS: LEVALBUTEROL HCL 1.25 MG/3 ML NEB NEB SCH ×3 (01:29→12:42)
[2022-08-17 06:32] LABS: Hematocrit (blood only) 26.3 % (34.1-44.9); Hemoglobin 9.3 g/dl (12.0-16.0); Immature Granulocytes # (auto) 0.07 K/uL (0.00-0.02); Immature Granulocytes % (auto) 1.9 %; Lymphocytes # (auto) 0.38 K/uL (1.2-3.4); Lymphocytes % (auto) 10.3 %; Mean Corpuscular Hemoglobin 37.1 pg (25.0-34.0); Mean Corpuscular Hgb Conc 35.4 g/dL (32.0-36.0); Mean Corpuscular Volume 104.8 fL (80.0-100.0); Monocytes # (auto) 0.19 K/uL (0.24-0.82); Monocytes % (auto) 5.1 %; Neutrophils # (auto) 3.05 K/uL (1.4-6.5); Neutrophils % (auto) 82.7 %; Nucleated RBC # (auto) 0.08 K/uL (0-0); Nucleated RBC % (auto) 2.2 %; Platelet Count 198 K/uL (130-400); RDW Coefficient of Variation 13.6 % (11.5-14.5); RDW Standard Deviation 49.8 fL (36.4-46.3); Red Blood Count 2.51 M/uL (3.93-5.22); White Blood Count 3.69 K/ul (4.8-10.8)
[2022-08-17 06:57] LABS: BUN Creatinine Ratio 28.9 (10-20); Calcium 8.8 mg/dl (8.5-10.1); Creatinine Clr Calc Pharmacy 67.3 ml/min; Est GFR (African American) 100.2 ml/min; Est GFR (Non-African American) 86.5 ml/min; Magnesium 1.8 mg/dl (1.7-2.4); Potassium 4.4 mmol/L (3.5-5.1)
[2022-08-17] MEDS: SODIUM CHLORIDE 0.9% 1000ML 1,000 ML IV SCH (07:00)
[2022-08-17 07:10] LABS: RBC Morphology Unremarkable
[2022-08-17] MEDS: buPROPion SR 150 MG TABCR PO SCH ×2 (07:51→20:57)
[2022-08-17] MEDS: CALCIUM 600MG + VIT D 400 IU TAB PO SCH ×2 (07:51→20:56)
[2022-08-17] MEDS: LOSARTAN POTASSIUM 50 MG TAB PO SCH (07:51)
[2022-08-17] MEDS: FLUTICASONE PROPIONATE NA SPR 16 GM BTL SCH (07:52)
[2022-08-17] MEDS: FLUTICASONE/VILANTEROL 200/25MCG 14 PUFFS/INHALER INH SCH (07:52)
[2022-08-17] MEDS: ENOXAPARIN INJ 40 MG/0.4 ML SYR SQ SCH (07:54)
[2022-08-17] MEDS: cefTRIAXone SODIUM 1,000 MG in DEXTROSE 5% 50 ML IV SCH ×2 (10:31→22:41)
[2022-08-17] MEDS ORDERED: LEVALBUTEROL HCL 0.63 MG/3 ML NEB NEB PRN (12:42)
[2022-08-17] MEDS: methylPREDNISolone 20 MG in SYRINGE 0 ML IV SCH (13:51)
--- NOTE | 2022-08-17 14:55 | Hospitalist Progress Note ---
Date of Service August 17, 2022 Assessment & Plan (1) Respiratory syncytial virus (RSV): Plan: Patient is a 57 yr female with H/O Recently diagnosed (April 2022) left lower lobe non-small cell lung cancer undergoing chemotherapy treatment with paclitaxel and carboplatin weekly since 07/02/2022, last received on 07/30/2022, radiation therapy, followed by immunotherapy with durvalumab, COPD, history of tobacco use, quit in December 2021, HTN, chronic back pain, anxiety and depression. Acute Bronchitis Secondary to RSV Immunosuppressed State secondary to Chemotherapy COVID and influenza negative --CTA:No pulmonary emboli identified. Bronchial wall thickening suggestive of bronchitis or reactive airway disease. Numerous calcified pulmonary granulomata are noted in addition to tiny bibasilar predominant noncalcified pulmonary nodules measuring 1-2 mm, likely infectious or inflammatory. No lymphadenopathy. --Procalcitonin normal -- Continue empiric IV antibiotics Continue Solu-Medrol Nebs as needed Saturating well on room air (2) Dyspnea: (3) Non-small cell carcinoma of lung: Plan: Received chemotherapy, radiation therapy, immunotherapy Follows with oncology as outpatient (4) Asthmatic bronchitis: (5) COPD (chronic obstructive pulmonary disease): Plan: Mild exacerbation secondary to above Continue home inhalers (6) Hypomagnesemia: Plan: Replete as needed (7) HTN (hypertension): Plan: - Continue losartan (8) Depression: Plan: Continue Zoloft, Wellbutrin DVT Px: Lovenox SQ CODE STATUS: Full code Admission and Anticipated Discharge Date Admission Date: August 16, 2022 Subjective Patient is seen and examined at bedside States feeling better today Less short of breath Admits to have cough and occasional wheezing Denies any chest pain, dizziness, nausea, abdominal pain Offers no other complaints Review of Systems Review of Systems: All systems reviewed & are unremarkable except as noted in Subjective Physical Exam Physical Exam: Physical Exam: Vitals signs as noted above General Appearance:Moderately built and nourished, no apparent distress Head: normocephalic, Atraumatic Eyes: normal inspection, EOMI Neck: supple, Trachea midline Respiratory/Chest: Decreased breath sounds, CTA, No accessory muscle use Cardiovascular: S1, S2, No murmur Abdomen/GI:Soft, Non tender, Bowel sounds present Extremities/Musculoskeletal:normal inspection, no edema Neurologic/Psych:AAOX3, grossly no focal neurological deficits Skin: normal color, warm Results & Data Results & Data ([facility]) Vital Signs (Past 12 Hours) Vital Signs Temp Pulse Pulse Resp BP BP Pulse Ox 08/17/22 12:43 118 H 18 91 08/17/22 10:51 37.4 C 116 H 20 148/91 H 94 08/17/22 09:55 08/17/22 07:29 37.0 C 108 H 20 171/82 H 92 08/17/22 07:10 96 H 08/17/22 07:03 118 H 20 92 08/17/22 03:06 36.6 C 100 H 18 148/81 H 95 O2 Del Method 08/17/22 12:43 Room Air 08/17/22 10:51 Room Air 08/17/22 09:55 Room Air 08/17/22 07:29 Room Air 08/17/22 07:10 08/17/22 07:03 Room Air 08/17/22 03:06 Room Air Laboratory Results Short CBC 08/16/22 08/17/22 Range/Units 15:02 06:11 WBC 4.68 L 3.69 L (4.8-10.8) K/ul Hgb 9.8 L 9.3 L (12.0-16.0) g/dl Hct 28.1 L 26.3 L (34.1-44.9) % Plt Count 203 198 (130-400) K/uL BMP 08/16/22 08/17/22 15:02 06:11 Sodium 137 136 Potassium 3.6 4.4 D Chloride 103 103 Carbon Dioxide 24 23 BUN 18 22 Creatinine 0.83 0.76 Glucose 110 H 155 H Calcium 9.1 8.8 Liver Function 08/16/22 Range/Units 15:02 Total Bilirubin 0.4 (0.2-1.0) mg/dl Direct Bilirubin 0.0 (0-0.2) mg/dl AST 22 (13-39) U/L ALT 27 (7-52) U/L Alkaline Phosphatase 69 (34-104) U/L Albumin 3.9 (3.4-5.0) gm/dl
--- NOTE | 2022-08-17 15:13 | Electrocardiogram Report ---
Test Reason : Blood Pressure : / mmHG Vent. Rate : 117 BPM Atrial Rate : 117 BPM P-R Int : 162 ms QRS Dur : 084 ms QT Int : 316 ms P-R-T Axes : 070 064 065 degrees QTc Int : 440 ms Sinus tachycardia Otherwise normal ECG When compared with ECG of 16-AUG-2022 15:12, No significant change was found Confirmed by Julian Fung ([id number]) on 08/17/2022 3:12:58 PM Referred By: REFERRED SELF Confirmed By:Benedict Fung
[2022-08-17 16:53] LABS: Appearance Urine Clear (Clear); Bilirubin Urine Negative (Negative); Blood Urine Negative (Negative); Color Urine Yellow; Glucose Urine UA Negative (Negative); Ketones Urine Negative (Negative); Leukocyte Esterase Urine Negative (Negative); Nitrite Urine Negative (Negative); Protein Urine Negative (Negative); Specific Gravity Urine 1.011 (1.000-1.030); Urobilinogen Urine Negative (Negative); pH Urine 6.5 (4.5-7.5)
[2022-08-17] MEDS: AZITHROMYCIN 250 MG TAB PO SCH (20:57)
[2022-08-17] MEDS: SERTRALINE HCL 50 MG TABLET PO SCH (20:57)
[2022-08-18 07:44] LABS: Hematocrit (blood only) 24.8 % (34.1-44.9); Hemoglobin 8.6 g/dl (12.0-16.0); Mean Corpuscular Hemoglobin 36.8 pg (25.0-34.0); Mean Corpuscular Hgb Conc 34.7 g/dL (32.0-36.0); Mean Platelet Volume 10.3 fL (9.4-12.3); Nucleated RBC # (auto) 0.14 K/uL (0-0); Nucleated RBC % (auto) 1.7 %; Platelet Count 212 K/uL (130-400); RDW Coefficient of Variation 14.1 % (11.5-14.5); RDW Standard Deviation 49.9 fL (36.4-46.3); Red Blood Count 2.34 M/uL (3.93-5.22); White Blood Count 8.39 K/ul (4.8-10.8)
[2022-08-18 08:37] LABS: BUN Creatinine Ratio 33.3 (10-20); Calcium 8.8 mg/dl (8.5-10.1); Creatinine Clr Calc Pharmacy 74.2 ml/min; Est GFR (African American) 111.2 ml/min; Magnesium 1.6 mg/dl (1.7-2.4); Potassium 4.7 mmol/L (3.5-5.1)
[2022-08-18] MEDS: LOSARTAN POTASSIUM 50 MG TAB PO SCH (08:45)
[2022-08-18] MEDS: FLUTICASONE PROPIONATE NA SPR 16 GM BTL SCH (08:46)
[2022-08-18] MEDS: methylPREDNISolone 20 MG in SYRINGE 0 ML IV SCH (08:46)
[2022-08-18] MEDS: buPROPion SR 150 MG TABCR PO SCH (08:46)
[2022-08-18] MEDS: CALCIUM 600MG + VIT D 400 IU TAB PO SCH (08:46)
[2022-08-18] MEDS: FLUTICASONE/VILANTEROL 200/25MCG 14 PUFFS/INHALER INH SCH (08:46)
[2022-08-18] MEDS: ENOXAPARIN INJ 40 MG/0.4 ML SYR SQ SCH (08:47)
[2022-08-18] MEDS ORDERED: MAGNESIUM SULFATE / D5W 1 GM/100 ML BAG IV ONE (09:04)
[2022-08-18] MEDS: cefTRIAXone SODIUM 1,000 MG in DEXTROSE 5% 50 ML IV SCH (10:25)
--- NOTE | 2022-08-18 11:16 | Hospitalist Progress Note ---
Date of Service August 18, 2022 Assessment & Plan (1) Respiratory syncytial virus (RSV): Plan: Patient is a 57 yr female with H/O Recently diagnosed (April 2022) left lower lobe non-small cell lung cancer undergoing chemotherapy treatment with paclitaxel and carboplatin weekly since 07/02/2022, last received on 07/30/2022, radiation therapy, followed by immunotherapy with durvalumab, COPD, history of tobacco use, quit in December 2021, HTN, chronic back pain, anxiety and depression. Acute Bronchitis Secondary to RSV Immunosuppressed State secondary to Chemotherapy COVID and influenza negative --CTA:No pulmonary emboli identified. Bronchial wall thickening suggestive of bronchitis or reactive airway disease. Numerous calcified pulmonary granulomata are noted in addition to tiny bibasilar predominant noncalcified pulmonary nodules measuring 1-2 mm, likely infectious or inflammatory. No lymphadenopathy. --Procalcitonin normal -- Continue empiric IV antibiotics>>Transition to PO antibiotics Continue Solu-Medrol>>transition to prednisone Nebs as needed Saturating well on room air Plan to discharge home today Hypomagnesemia Replace electrolytes as needed (2) Dyspnea: (3) Non-small cell carcinoma of lung: Plan: Received chemotherapy, radiation therapy, immunotherapy Follows with oncology as outpatient (4) Asthmatic bronchitis: (5) COPD (chronic obstructive pulmonary disease): Plan: Mild exacerbation secondary to above Continue home inhalers (6) Hypomagnesemia: Plan: Replete as needed (7) HTN (hypertension): Plan: - Continue losartan (8) Depression: Plan: Continue Zoloft, Wellbutrin DVT Px: Lovenox SQ CODE STATUS: Full code Disposition Home Admission and Anticipated Discharge Date Admission Date: August 16, 2022 Subjective Patient is seen and examined at bedside No new complaints Saturating well on room air Wheezing resolved Cough much improved Denies any chest pain, dyspnea, dizziness, nausea, abdominal pain Eager to get discharged Review of Systems Review of Systems: All systems reviewed & are unremarkable except as noted in Subjective Physical Exam Physical Exam: Physical Exam: Vitals signs as noted above General Appearance:Moderately built and nourished, no apparent distress Head: normocephalic, Atraumatic Eyes: normal inspection, EOMI Neck: supple, Trachea midline Respiratory/Chest: Decreased breath sounds, CTA, No accessory muscle use Cardiovascular: S1, S2, No murmur Abdomen/GI:Soft, Non tender, Bowel sounds present Extremities/Musculoskeletal:normal inspection, no edema Neurologic/Psych:AAOX3, grossly no focal neurological deficits Skin: normal color, warm Results & Data Results & Data ([facility]) Vital Signs (Past 12 Hours) Vital Signs Temp Pulse Pulse Resp BP Pulse Ox O2 Del Method 08/18/22 11:12 37.1 C 101 H 18 138/71 94 Room Air 08/18/22 07:47 37.4 C 97 H 18 152/89 H 93 Room Air 08/18/22 07:26 87 08/18/22 03:29 37 C 94 H 18 140/78 94 Room Air 08/17/22 23:19 Room Air Laboratory Results Short CBC 08/18/22 Range/Units 06:58 WBC 8.39 (4.8-10.8) K/ul Hgb 8.6 L (12.0-16.0) g/dl Hct 24.8 L (34.1-44.9) % Plt Count 212 (130-400) K/uL BMP 08/18/22 06:58 Sodium 140 Potassium 4.7 Chloride 108 H Carbon Dioxide 27 BUN 23 Creatinine 0.69 Glucose 103 H Calcium 8.8 Urine 08/17/22 Range/Units 16:07 Urine Color Yellow Urine Appearance Clear (Clear) Urine pH 6.5 (4.5-7.5) Ur Specific [place] 1.011 (1.000-1.030) Urine Protein Negative (Negative) Urine Glucose (UA) Negative (Negative)
--- NOTE | 2022-08-18 11:34 | Discharge Summary ---
Date of Service August 18, 2022 Admission HPI Per Admitting Provider Chief Complaint: dyspnea Primary Care Provider: Ivy Holden PA-C This is a 57-year-old female with PMHx of recently diagnosed (April 2022) left lower lobe non-small cell lung cancer undergoing chemotherapy treatment with paclitaxel and carboplatin weekly since 07/02/2022, last received on 07/30/2022, radiation therapy, followed by immunotherapy with durvalumab, COPD, history of tobacco use, quit in December 2021, HTN, chronic back pain, anxiety and depression. The patient presents here with having cold-like symptoms which started last Saturday, and have progressed throughout the week. She notes that for the past 3 days she has been increasing shortness of breath with minimal ADLs, where at times while she was walking she needed to sit down due to significant shortness of breath, wheezing and feeling lightheaded specifically with coughing fits. With coughing she is producing thick yellow/green mucus, denies hemoptysis. Patient had an episode of feeling hot last Saturday evening however since then denies any other fever-like symptoms, chills or sweats. Denies any chest pain, palpitations or flutter. P.o. intake has been adequate, and was able to take all of her routine medications earlier today. Admits to occasional constipation, last BM was today. She lives at home with her sister, and daughter rents out the basement of her house who both have had viral-like symptoms as well. She recently completed chemotherapy on 07/30/2022 and 30 radiation treatments, and was scheduled to have an outpatient PET/CT tomorrow to determine next course per her primary oncologist. She feels improved after having an albuterol nebulizer treatment in the ER. Patient is not hypoxic, O2 sats are 93% on room air and have been steady since arrival. Heart rate is elevated in the 110s. WBC = 4.68. Mag is low at 1.1. Admission Exam Per Admitting Provider Physical Exam Physical Exam: General: awake, alert, no apparent distress, + thinning hair/hair falling out Head: Normocephalic, atraumatic ENT: PERRL, EOMI, no pharyngeal exudate, mucous membranes moist, no mucositis or oral thrush Chest: on room air, O2 sats are 93%, just completed nebulizer treatment at bedside, diminished breath sounds throughout, no adventitious breath sounds Cardiac: + Sinus tach with HR in the 105-110 at rest, no murmur, no JVD, normal peripheral pulses, good capillary refill Abdominal: NABS x 4 quadrants, soft, nondistended, nontender to palpation, no rebound or guarding Extremities: Normal inspection, no peripheral edema or erythema, calfs nontender to palpation Psych: Normal mood and affect Neuro: AAO x 3, strength intact bilaterally and rated 5/5, no motor deficits, speech is clear, no peripheral sensory deficits Principal Diagnosis Acute Bronchitis Respiratory syncytial virus infection Hypomagnesemia Mild COPD exacerbation Discharge Data Allergies Allergy/AdvReac Type Severity Reaction Status Date / Time Penicillins Allergy Intermediate Hives Verified 08/16/22 16:07 Sulfa (Sulfonamide Allergy Intermediate Hives, Verified 08/16/22 16:07 Antibiotics) possible dyspnea Consultations 08/16/22 17:44 ED Decision to Admit Stat Procedures Performed Laboratory Results WBC 8.39 K/ul (4.8-10.8) 08/18/22 06:58 RBC 2.34 M/uL (3.93-5.22) L 08/18/22 06:58 Hgb 8.6 g/dl (12.0-16.0) L 08/18/22 06:58 Hct 24.8 % (34.1-44.9) L 08/18/22 06:58 MCV 106.0 fL (80.0-100.0) H 08/18/22 06:58 MCH 36.8 pg (25.0-34.0) H 08/18/22 06:58 MCHC 34.7 g/dL (32.0-36.0) 08/18/22 06:58 RDW Std Deviation 49.9 fL (36.4-46.3) H 08/18/22 06:58 RDW Coeff of Shai 14.1 % (11.5-14.5) 08/18/22 06:58 Plt Count 212 K/uL (130-400) 08/18/22 06:58 MPV 10.3 fL (9.4-12.3) 08/18/22 06:58 Immature Gran % (Auto) 1.9 % 08/17/22 06:11 Neut % (Auto) 82.7 % 08/17/22 06:11 Lymph % (Auto) 10.3 % 08/17/22 06:11 Wolfe % (Auto) 5.1 % 08/17/22 06:11 Eos % (Auto) 0.0 % 08/17/22 06:11 Baso % (Auto) 0.0 % 08/17/22 06:11 Neut # (Auto) 3.05 K/uL (1.4-6.5) 08/17/22 06:11 Lymph # (Auto) 0.38 K/uL (1.2-3.4) L 08/17/22 06:11 Wolfe # (Auto) 0.19 K/uL (0.24-0.82) L 08/17/22 06:11 Eos # (Auto) 0.00 K/uL (0-0.50) 08/17/22 06:11 Baso # (Auto) 0.00 K/uL (0-0.2) 08/17/22 06:11 Immature Gran # (Auto) 0.07 K/uL (0.00-0.02) H 08/17/22 06:11 Absolute Nucleated RBC 0.14 K/uL (0-0) H 08/18/22 06:58 Nucleated RBC % (auto) 1.7 % 08/18/22 06:58 RBC Morphology Unremarkable 08/17/22 06:11 PT 10.4 Seconds (9.0-12.0) 08/16/22 15:02 INR 1.0 (0.9-1.1) 08/16/22 15:02 APTT 23.8 Seconds (21.0-31.0) 08/16/22 15:02 PTT Ratio 0.9 08/16/22 15:02 VBG pH 7.39 (7.36-7.41) 08/16/22 15:02 VBG pCO2 41 mmHg (38-50) 08/16/22 15:02 VBG pO2 47 mmHg 08/16/22 15:02 VBG HCO3 25 mmol/L 08/16/22 15:02 VBG O2 Saturation 82.0 % 08/16/22 15:02 VBG Base Excess -0.2 mEq/L 08/16/22 15:02 Sodium 140 mmol/L (136-145) 08/18/22 06:58 Potassium 4.7 mmol/L (3.5-5.1) 08/18/22 06:58 Chloride 108 mmol/L (98-107) H 08/18/22 06:58 Carbon Dioxide 27 mmol/L (21-32) 08/18/22 06:58 Anion Gap 5 (3-11) 08/18/22 06:58 BUN 23 mg/dl (6-23) 08/18/22 06:58 Creatinine 0.69 mg/dl (0.6-1.2) 08/18/22 06:58 Est Cr Clr Drug Dosing 74.2 ml/min 08/18/22 06:58 Est GFR ( Amer) 111.2 ml/min 08/18/22 06:58 Est GFR (Non-Af Amer) 96.0 ml/min 08/18/22 06:58 BUN/Creatinine Ratio 33.3 (10-20) H 08/18/22 06:58 Glucose 103 mg/dl (70-99(Fasting)) H 08/18/22 06:58 Lactate 2.0 mmol/L (0.4-2.0) 08/16/22 15:02 Calcium 8.8 mg/dl (8.5-10.1) 08/18/22 06:58 Magnesium 1.6 mg/dl (1.7-2.4) L 08/18/22 06:58 Total Bilirubin 0.4 mg/dl (0.2-1.0) 08/16/22 15:02 Direct Bilirubin 0.0 mg/dl (0-0.2) 08/16/22 15:02 AST 22 U/L (13-39) 08/16/22 15:02 ALT 27 U/L (7-52) 08/16/22 15:02 Alkaline Phosphatase 69 U/L (34-104) 08/16/22 15:02 Troponin I High Sens 7.5 pg/ml (0-14) 08/16/22 15:02 Total Protein 6.8 gm/dl (6.0-8.3) 08/16/22 15:02 Albumin 3.9 gm/dl (3.4-5.0) 08/16/22 15:02 Procalcitonin < 0.05 ng/ml (0-0.5) 08/16/22 15:02 Urine Color Yellow 08/17/22 16:07 Urine Appearance Clear (Clear) 08/17/22 16:07 Urine pH 6.5 (4.5-7.5) 08/17/22 16:07 Ur Specific [place] 1.011 (1.000-1.030) 08/17/22 16:07 Urine Protein Negative (Negative) 08/17/22 16:07 Urine Glucose (UA) Negative (Negative) 08/17/22 16:07 Urine Ketones Negative (Negative) 08/17/22 16:07 Urine Blood Negative (Negative) 08/17/22 16:07 Urine Nitrite Negative (Negative) 08/17/22 16:07 Urine Bilirubin Negative (Negative) 08/17/22 16:07 Urine Urobilinogen Negative (Negative) 08/17/22 16:07 Ur Leukocyte Esterase Negative (Negative) 08/17/22 16:07 SARS-CoV-2 (PCR) NEGATIVE (Negative) 08/16/22 15:10 Influenza Type A (PCR) Negative (Neg) 08/16/22 15:10 Influenza Type B (PCR) Negative (Neg) 08/16/22 15:10 RSV (RT-PCR) Positive (Neg) A* 08/16/22 15:10 Blood Type O Positive 08/16/22 15:02 Antibody Screen NEGATIVE 08/16/22 15:02 Impressions Chest CTA 08/16/22 14:42 CT angio chest PE protocol CT DOSE: 306.64 mGy.cm HISTORY: 57 years-old Female with ro PE. Acute chest tightness with shortness of breath TECHNIQUE: Multiple CTA images of the chest were obtained after the intravenous administration of 120 ml Optiray. Coronal and sagittal MIPS were obtained from the axial data set and were submitted for review. All measurements were obtained according to NASCET criteria. A dose lowering technique was utilized adhering to the principles of ALARA. COMPARISON: Chest radiograph 12/05/2020, chest CT from outside facility 05/23/2020, CTA chest 12/29/2015 FINDINGS: CTA: Subcentimeter hypodense left-sided thyroid nodule. No pathologically enlarged lymph nodes identified. The heart is normal in size without pericardial effusion. Atherosclerosis of the thoracic aorta without aneurysm. There is patency of the imaged great vessels. There is a least mild stenosis of the proximal celiac artery. No pulmonary emboli are identified. CT CHEST: No pneumothorax, pleural effusion, airspace consolidation or overt pulmonary edema. Bronchial wall thickening. Scattered calcified pulmonary granulomata with areas of subsegmental atelectasis/scarring. Tiny bibasilar predominant noncalcified pulmonary nodules measure up to 1-2 mm. There is suggestion of mild pulmonary emphysema. Calcified structure adjacent to the spleen redemonstrated, 4.2 cm. Cortical calcification measuring 4 mm noted within the left kidney on image 6 series 4 with adjacent area of parenchymal scarring. Cholecystectomy. No acute process of the imaged upper abdomen. Unremarkable soft tissues. There are a few healed chronic anterior right-sided rib fractures. No acute fracture is identified. IMPRESSION: 1. No pulmonary emboli identified. 2. Bronchial wall thickening suggestive of bronchitis or reactive airway disease. 3. Numerous calcified pulmonary granulomata are noted in addition to tiny bibasilar predominant noncalcified pulmonary nodules measuring 1-2 mm, likely infectious or inflammatory. 4. No lymphadenopathy. ACT 112: Negative or not required by law. The above report was generated using voice recognition software. It may contain grammatical, syntax or spelling errors. Electronically signed by: Adam Alonso M.D. 08/16/2022 4:48 PM Ordered Studies 08/16/22 14:42 CT angio chest PE protocol Stat Hospital Course (1) Respiratory syncytial virus (RSV): (1) Respiratory syncytial virus (RSV): Plan: Patient is a 57 yr female with H/O Recently diagnosed (April 2022) left lower lobe non-small cell lung cancer undergoing chemotherapy treatment with paclitaxel and carboplatin weekly since 07/02/2022, last received on 07/30/2022, radiation therapy, followed by immunotherapy with durvalumab, COPD, history of tobacco use, quit in December 2021, HTN, chronic back pain, anxiety and depression. Acute Bronchitis Secondary to RSV Immunosuppressed State secondary to Chemotherapy COVID and influenza negative --CTA:No pulmonary emboli identified. Bronchial wall thickening suggestive of bronchitis or reactive airway disease. Numerous calcified pulmonary granulomata are noted in addition to tiny bibasilar predominant noncalcified pulmonary nodules measuring 1-2 mm, likely infectious or inflammatory. No lymphadenopathy. --Procalcitonin normal -- Continue empiric IV antibiotics>>Transition to PO antibiotics Continue Solu-Medrol>>transition to prednisone Nebs as needed Saturating well on room air Plan to discharge home today Hypomagnesemia Replace electrolytes as needed (2) Dyspnea: (3) Non-small cell carcinoma of lung: Plan: Received chemotherapy, radiation therapy, immunotherapy Follows with oncology as outpatient (4) Asthmatic bronchitis: (5) COPD (chronic obstructive pulmonary disease): Plan: Mild exacerbation secondary to above Continue home inhalers (6) Hypomagnesemia: Plan: Replete as needed (7) HTN (hypertension): Plan: - Continue losartan (8) Depression: Plan: Continue Zoloft, Wellbutrin DVT Px: Lovenox SQ CODE STATUS: Full code Disposition Home Total Time Total Time Spent Total Time Spent (In Minutes): 49 minutes Discharge Plan Discharge Items Patient Disposition: Home - Self-Care Reason For Visit: RSV, LUNG CANCER Discharge Diagnosis: Acute Bronchitis Respiratory syncytial virus infection Hypomagnesemia Mild COPD exacerbation Activity: Per Instructions section Exercise/Sports: Wait until after follow-up appointment Non-emergency contact: Primary Care Provider Call non-emergency contact if: you have any medication questions, your symptoms worsen, your pain is concerning for you and you have a fever Follow-up/Referrals: Ivy Holden PA-C [Primary Care Provider] - Diet: Regular Addtl Attending Provider Instructions: Follow-up with your primary care physician Ivy Holden PA-C in 1 week --Complete the Prednisone, Doxycycline course as prescribed -- Final blood cultures are pending at the time of discharge. Follow-up with your physician for results. Seek immediate medical attention if your symptoms reoccur or worsen Please take all medications as instructed on discharge list below. Please call if you have any questions or problems. You can reach a [facility] hospitalist on duty at [facility] 24 hours a day by calling [phone] Pending Studies at Discharge: Yes Studies:: Blood Cultures Stand-Alone Forms: [facility] [employer], Smoking Cessation Medications and DC Order Prescriptions: New prednisone 20 mg tablet 20 mg PO DAILY Qty: 5 0RF doxycycline hyclate 100 mg tablet 100 mg PO BID Qty: 10 0RF Continued budesonide-formoterol [Symbicort] 160-4.5 mcg/actuation Hfa Aerosol Inhaler 2 puff INHALATION BID bupropion HCl 150 mg tablet sustained-release 12 hr 150 mg PO BID sertraline 50 mg tablet 50 mg PO HS Spiriva with HandiHaler 18 mcg capsule, w/inhalation device 1 cap INHALATION QAM calcium carbonate-vitamin D3 [Calcium 500 + D] 500 mg(1,250mg) -200 unit Tablet 1 tab PO BID fluticasone propionate 50 mcg/actuation [place],Suspension 1 spray INTRANASAL QAM Marijuana 1 dose inhalation UD PRN (Reason: PAIN/ANXIETY) losartan 50 mg tablet 50 mg PO DAILY cyclobenzaprine 10 mg tablet 10 mg PO HS PRN (Reason: Muscle Spasm) prochlorperazine maleate 10 mg tablet 10 mg PO Q6H PRN (Reason: Nausea) benzonatate 100 mg capsule 100 mg PO TID PRN (Reason: Cough) Discharge Orders: Discharge Order (Routine); Ordered 08/18/22 Ordered By: Cayden Hatfield Admission Data Admit Date/Time: 08/16/22 18:54 Attending Provider: Cayden Hatfield Admit Provider: Alison Vincent Primary Care Provider: Ivy Holden Other Providers: Alison Vincent
== END 2022-08-18 14:18 | disposition home or self-care (01) | DRG 202 ==
LOC: ED 14:27 → 2W 18:54 → SUATTDRO 18:54 → 2W 20:36

== ENCOUNTER 2023-10-15 14:18 | Inpatient (IN) ==
--- NOTE | 2023-10-15 14:48 | ED Triage Note ---
Date of Service October 15, 2023 Provider in Triage Author: Ashley De La Garza History of Present Illness This patient was briefly evaluated while in triage. An abbreviated physical exam was performed. This patient is a 58-year-old Female who presents to the ED for evaluation of shortness of breath x 2 days. She does note a cough. She has COPD and also has a recent history of lung cancer. Physical Exam VITALS: Vitals are noted on the nurse's note and reviewed by myself. GENERAL: This is a 58-year-old female, in no acute distress, well-developed well-nourished. HEART: Regular rate and rhythm without murmurs gallops or rubs. LUNGS: Diffuse wheezes throughout. NEURO: Patient was alert and oriented to person place and time. Initial orders for labs and / or imaging were placed and patient was placed in the waiting area until a bed is available. Please see further documentation for the full ED course. MDM / Impression Impression Impression: Shortness of breath, Hypomagnesemia, Acute exacerbation of chronic obstructive pulmonary disease, Leukocytosis, Acute respiratory failure with hypoxia
[2023-10-15] MEDS ORDERED: ALBUT/IPRATROP 3MG/0.5MG NEB 3 ML VIAL NEB STA (15:06)
--- NOTE | 2023-10-15 15:06 | Emergency Department Note ---
Impression & Plan Shortness of breath, Hypomagnesemia, Acute exacerbation of chronic obstructive pulmonary disease, Leukocytosis, Acute respiratory failure with hypoxia ED Provider Note HISTORY OF PRESENT ILLNESS: Patient is a 58-year-old female presenting with shortness of breath. Patient reports for the last 2 days she has had progressively worsening shortness of breath. She is using her inhalers at home with little relief in symptoms. She has a history of COPD and lung cancer. She reports that she underwent chemotherapy and radiation therapy and finished a year of immunotherapy treatments back in August 2023. She reports that she was told that her cancer was stable and she did not need further treatment at this time. Denies any DVT or PE history. Denies any significant chest pain, but states that she intermittently gets a "spasm" under her right breast. Reports that her shortness of breath is significantly worse when she exerts herself. Denies any lower extremity edema. Denies any abdominal pain, nausea or vomiting. Patient does not wear any supplemental oxygen at baseline. She is not on any anticoagulation. Denies any recent travel or recent sick contact exposures. ROS: as above PHYSICAL EXAM: Constitutional: Patient appears in no acute distress. HENT: Head: Normocephalic and atraumatic. Eyes: EOMI, PERRL Mouth/Throat: Mucous membranes moist. Neck: Trachea midline. Neck supple. Cardiovascular: Tachycardic with regular rhythm. No murmurs, rubs or gallops. Intact distal pulses. Pulmonary/Chest: No respiratory distress. Breath sounds clear and equal bilaterally. Expiratory wheezes bilaterally Abdominal: Abdomen soft, no tenderness, rebound or guarding. Musculoskeletal: No edema, tenderness or deformity noted. Skin: Warm and dry. No rash, erythema, pallor or cyanosis Psychiatric: Appropriate mood and affect for situation. Neurological: Alert and keenly responsive. CN II-XII grossly intact, moving all extremities equally and fully. MDM: - Vitals signs showed tachycardia and hypoxic on room air. - History obtained via patient. Patient presents with shortness of breath. Patient reports for the last 2 days she has not had progressively worsening shortness of breath. She has a history of COPD and lung cancer. Does not wear any supplemental oxygen at baseline. Denies any DVT or PE history. Reports some discomfort under her right breast intermittently. Reports has been using her inhalers without any relief in symptoms. She is not on any anticoagulation. - Chronic conditions affecting care: non-small cell lung cancer; HTN; COPD - Differential diagnoses include, but are not limited to: Congestive heart failure; acute coronary syndrome; COPD/asthma exacerbation; pulmonary edema; pulmonary embolism; pneumonia; pneumothorax; viral syndrome - Order placed for continuous cardiac monitoring. At this time, monitor showed rate of 102 bpm with normal sinus rhythm, per my interpretation. - External medical records reviewed. Hematology/oncology report dated 06/06/2023 was reviewed. Patient follows in their clinic for left lower lobe non-small cell lung cancer with left hilar lymph node involvement. She was treated with combined chemotherapy with weekly paclitaxel carboplatin and radiation treatment. - EKG interpreted by myself showed normal sinus rhythm. Rate 87 bpm. QTc 406. No acute ischemic changes. - Laboratory workup interpreted by myself showed leukocytosis (WBC 13.44) with left shift; stable electrolytes other than hypomagnesemia (Mg 1.5); normal troponin; normal BNP - CXR negative for pneumonia, per my interpretation - CT PE negative for PE. - Patient given duoneb treatment in ER. Given 1g IV magnesium and 125 mg IV solumedrol. - Respiratory viral panel was negative. - On reassessment, patient is still borderline hypoxic on 2 L nasal cannula. Sats are 90 to 91%. Her symptoms are likely secondary to COPD exacerbation given her grossly unremarkable workup. 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 ASSESSMENT AND PLAN: Diagnosis: shortness of breath; COPD exacerbation; hypomagnesemia; leukocytosis; acute respiratory failure with hypoxia Plan: admit Past Med/Surg History Medical History Hx of respiratory syncytial virus infection 2021; all sx resolved Abnormal echocardiogram stress echo 05/[address] Ellsworth was positive for inducible ischemia; plan to manage medically at this point History of COVID-19 HX X2 : Fall 2021 (most recent) - mild symptoms, resolved Non-small cell carcinoma of lung DX 2021/HX CHEMO AND RADIATION followed by monthyl immunotherapy; has now finished all treatments Diverticular disease Kidney stone Seasonal allergies Sleep apnea cannot tolerate CPAP Depression GERD (gastroesophageal reflux disease) occasional COPD (chronic obstructive pulmonary disease) stable HTN (hypertension) follows w/ Dr Ellsworth; stable on medication Surgical History S/P cystoscopy with ureteral stent placement multiple; most recent: 06/24/23: MAC without issue History of esophagogastroduodenoscopy (EGD) Nausea and vomiting after administration of anesthetic agent no issues with recent [facility] surgeries History of colonoscopy History of lithotripsy x3; S/P Cystoscopy, right ureteroscopy, RPG, stent, laser lithotripsy (11/02/19): LMA#4 at [facility] History of total hysterectomy History of tubal ligation History of cholecystectomy History of wisdom tooth extraction History of lumbar fusion L4-5 Family History Daughter Family history of diabetes mellitus (DM) Uncle Family history of diabetes mellitus (DM) Grandfather FHx: colon cancer Grandfather (Paternal) FHx: colon cancer Mother Cancer Grandmother (Maternal) Heart disease Other No family history of adverse response to anesthesia Social History Smoking Status: Current every day smoker Tobacco Type: Cigarettes Cigarettes Per Day: 20; Second Hand Exposure: Yes; Do You Dip or Chew Tobacco: No; Hx Alcohol Use: Yes Alcohol type: beer Hx Substance Use: Yes Last Used Substance: Days (ago) Last Used Substance Other:: typically uses medical marijuana daily Substance Use Type Other:: has a medical marijuana card Preferred Language: Sammarinese Communication Ability: Effective Visual Impairment: No Limitations Flume Tender Required: No Beliefs That Will Affect Care: None marital status: Single Current Living Situation: Family Current Living Situation Comment: sister and daughter How many Children do You have: 2 Feels Safe at Home: Yes Assistive Devices: CPAP, Denture - Upper, Denture - Lower and Glasses Allergies Allergies Allergy/AdvReac Type Severity Reaction Status Date / Time Sulfa (Sulfonamide Allergy Intermediate Hives, Verified 10/15/23 17:00 Antibiotics) possible dyspnea Penicillins Allergy Mild Hives Verified 10/15/23 17:00 Home Meds Home Medications Medication Instructions Recorded Confirmed bupropion HCl 150 mg tablet,12 hr 150 mg PO BID 09/04/19 10/15/23 sustained-release (Wellbutrin SR) calcium carbonate 500 mg-vitamin 1 tab PO BID 09/04/19 10/15/23 D3 5 mcg (200 unit) tablet (Calcium 500 + D) sertraline 50 mg tablet 50 mg PO HS 09/04/19 10/15/23 budesonide-formoterol HFA 160 2 puff inhalation BID 09/16/19 10/15/23 mcg-4.5 mcg/actuation aerosol inhaler (Symbicort) fluticasone propionate 50 1 spray intranasal QAM 11/25/20 10/15/23 mcg/actuation nasal spray,suspension benzonatate 100 mg capsule 100 mg PO TID PRN Cough 08/16/22 10/15/23 cyclobenzaprine 10 mg tablet 10 mg PO HS PRN Muscle Spasm 08/16/22 10/15/23 losartan 50 mg tablet 50 mg PO QAM 08/16/22 10/15/23 multivitamin 1 tab PO QAM 01/02/23 10/15/23 Medical Marijuana Card 1 dose PO UD PRN ANXIETY AND PAIN 03/26/23 10/15/23 aspirin 81 mg capsule 81 mg PO QAM 06/14/23 10/15/23 atorvastatin 20 mg tablet 20 mg PO QAM 06/14/23 10/15/23 metoprolol succinate 25 mg 12.5 mg PO QAM 06/14/23 10/15/23 tablet,extended release 24 hr Previous Rx's Medication Instructions Recorded phenazopyridine 200 mg tablet 200 mg PO Q8H PRN pain #10 tabs 09/30/23 (Pyridium) tamsulosin 0.4 mg capsule 0.4 mg PO HS #30 caps 09/30/23 Results & Data (ED) Vital Signs Vital Signs - 24 hr 10/15/23 14:46 10/15/23 14:55 10/15/23 15:19 Temperature 36.5 C Temperature Source Temporal Artery Scan Pulse Rate 112 H 106 H Pulse Rate [Apical] 96 H Respiratory Rate 20 15 Respiratory Effort / Characteristics Non-Labored Spontaneous Non-Labored Respiratory Depth Normal Normal Respiratory Pattern Regular Regular Blood Pressure 127/84 Blood Pressure [Left Arm] 127/80 Blood Pressure Mean 98 Blood Pressure Mean [Left Arm] 95 Pulse Oximetry 83 L 93 Oxygen Delivery Method Room Air Nasal Cannula Oxygen Flow Rate 2 Sepsis Recent Fever Within 48 Hours No Sepsis New/Unexplained Change in Mental Status No Sepsis Action Taken by Nursing No Action Required Oxygen Flow Rate - Titration Pulse Oximetry Post Tiitration 10/15/23 16:30 Temperature Temperature Source Pulse Rate Pulse Rate [Apical] Respiratory Rate Respiratory Effort / Characteristics Respiratory Depth Respiratory Pattern Blood Pressure Blood Pressure [Left Arm] Blood Pressure Mean Blood Pressure Mean [Left Arm] Pulse Oximetry 90 Oxygen Delivery Method Nasal Cannula Oxygen Flow Rate 2 Sepsis Recent Fever Within 48 Hours Sepsis New/Unexplained Change in Mental Status Sepsis Action Taken by Nursing Oxygen Flow Rate - Titration 2.5 Pulse Oximetry Post Tiitration 92 Laboratory Data 10/15/23 15:02 10/15/23 15:02 Lab Results 10/15/23 10/15/23 10/15/23 Range/Units 15:02 15:18 15:28 WBC 13.44 H (4.8-10.8) K/ul RBC 3.77 L (4.20-5.40) M/uL Hgb 13.7 (12.0-16.0) g/dl Hct 40.1 (37.0-47.0) % MCV 106.4 H (80.0-100.0) fL MCH 36.3 H (25.0-34.0) pg MCHC 34.2 (32.0-36.0) g/dL RDW Std Deviation 50.9 H (36.4-46.3) fL RDW Coeff of Shai 12.9 (11.5-14.5) % Plt Count 310 (130-400) K/uL MPV 10.1 (9.4-12.4) fL Immature Gran % (Auto) 0.4 % Neut % (Auto) 85.2 % Lymph % (Auto) 7.1 % [place] % (Auto) 6.9 % Eos % (Auto) 0.1 % Baso % (Auto) 0.3 % Neut # (Auto) 11.45 H (1.40-6.50) K/uL Lymph # (Auto) 0.95 L (1.20-3.40) K/uL [place] # (Auto) 0.93 H (0.11-0.59) K/uL Eos # (Auto) 0.01 (0.00-0.50) K/uL Baso # (Auto) 0.04 (0.00-0.20) K/uL Immature Gran # (Auto) 0.06 (0.01-0.20) K/uL PT 10.9 (9.0-12.0) Seconds INR 1.0 (0.9-1.1) VBG pH 7.39 (7.36-7.41) VBG pCO2 51 H (38-50) mmHg VBG pO2 33 mmHg VBG HCO3 31 mmol/L VBG O2 Saturation 65.9 % VBG Base Excess 4.7 mEq/L Sodium 138 (136-145) mmol/L Potassium 4.5 (3.5-5.1) mmol/L Chloride 100 (98-107) mmol/L Carbon Dioxide 31 (21-32) mmol/L Anion Gap 7 (3-11) BUN 15 (6-23) mg/dl Creatinine 0.83 (0.6-1.2) mg/dl Est Cr Clr Drug Dosing 66.1 ml/min Est GFR ( Amer) 89.5 ml/min Est GFR (Non-Af Amer) 77.2 ml/min BUN/Creatinine Ratio 18.1 (10-20) Glucose 122 H (70-99(Fasting)) mg/dl Calcium 9.5 (8.6-10.3) mg/dl Magnesium 1.5 L (1.7-2.4) mg/dl Total Bilirubin 0.7 (0.2-1.0) mg/dl AST 22 (13-39) U/L ALT 23 (7-52) U/L Alkaline Phosphatase 106 H (34-104) U/L Troponin I High Sens 4.4 (0-14) pg/ml B-Natriuretic Peptide 15 (0-100) pg/ml Total Protein 7.7 (6.0-8.3) gm/dl Albumin 4.3 (3.4-5.0) gm/dl Globulin 3.4 (2.5-4.0) gm/dl Albumin/Globulin Ratio 1.3 (0.9-2) Adenovirus (PCR) Not Detected (NotDetected) B. pertussis DNA (PCR) Not Detected (NotDetected) B.parapertussis DNA PCR Not Detected (NotDetected) C. pneumoniae DNA (PCR) Not Detected (NotDetected) Coronavirus OC43 (PCR) Not Detected (NotDetected) Coronavirus HKU1 (PCR) Not Detected (NotDetected) Coronavirus 229E (PCR) Not Detected (NotDetected) SARS-CoV-2 (PCR) Not Detected (NotDetected) Coronavirus NL63 (PCR) Not Detected (NotDetected) Human Metapneumovir PCR Not Detected (NotDetected) Influenza Type A (PCR) Not Detected (NotDetected) Influenza Type B (PCR) Not Detected (NotDetected) M. pneumoniae (PCR) Not Detected (NotDetected) Parainfluenza 1 (PCR) Not Detected (NotDetected) Parainfluenza 2 (PCR) Not Detected (NotDetected) Parainfluenza 3 (PCR) Not Detected (NotDetected) Parainfluenza 4 (PCR) Not Detected (NotDetected) RSV (PCR) Not Detected (NotDetected) Entero/Rhino (PCR) Not Detected (NotDetected) Administered Medications Discontinued Medications Albuterol (Albut/Ipratrop 3mg/0.5mg Neb 3 Ml Vial) 3 ml NEB NOW STA; Protocol Stop: 10/15/23 15:07 Last Admin: 10/15/23 15:22 Dose: 3 ml Documented By: KELLY Magnesium Sulfate/Dextrose (Magnesium Sulfate / D5w) 1 gm in 100 mls @ 100 mls/hr IV NOW STA Stop: 10/15/23 17:36 Last Admin: 10/15/23 16:56 Dose: 100 mls/hr Documented By: KELLY Ioversol (Optiray 320 500ml) 115 ml IV ONCE ONE Stop: 10/15/23 16:04 Last Admin: 10/15/23 16:03 Dose: 115 ml Documented By: VICKI Methylprednisolone (Methylprednisolone 125 Mg/2 Ml Vial) 125 mg IV NOW STA Stop: 10/15/23 16:38 Last Admin: 10/15/23 16:56 Dose: 125 mg Documented By: KELLY Imaging Data Radiologist's Impression: Chest X-Ray 10/15/23 14:48 SINGLE VIEW CHEST CLINICAL HISTORY: Dyspnea FINDINGS: An AP, portable, upright chest radiograph is compared to study dated 12/24/2022 and correlated with chest CT dated 08/16/2022. The cardiomediastinal silhouette is top normal for projection noting atherosclerotic calcification of the thoracic aorta. There are scattered calcified granulomas. Emphysema and chronic interstitial thickening is similar to previous. There is bibasilar scarring/atelectasis. No airspace consolidation or large pleural effusion is identified. No pneumothorax is seen. The skeletal structures are osteopenic. The bony thorax is grossly intact. Arthritic change is noted in the shoulders. IMPRESSION: Emphysematous change with no acute cardiopulmonary abnormality identified. ACT 112: Negative or not required by law. Electronically signed by: Israel Ly M.D. 10/15/2023 3:22 PM Chest CTA 10/15/23 14:59 CT ANGIOGRAPHY OF THE CHEST, PULMONARY EMBOLUS PROTOCOL CLINICAL HISTORY: Dyspnea. COMPARISON STUDY: Chest CT August 16, 2022. Chest radiograph performed earlier today. TECHNIQUE: Following IV administration of 115 mL of Optiray, helical axial images of the chest were obtained utilizing the pulmonary embolus protocol. Maximal intensity projections and sagittal and coronal reformats were viewed on an independent 3D workstation. IV contrast was administered without complication. Automated exposure control was utilized for the study. A dose lowering technique was utilized adhering to the principles of ALARA. CT DOSE: 608.07 mGy.cm FINDINGS: No pulmonary emboli are identified. There is no thoracic aortic dissection. Size of the heart is normal. There is no pericardial effusion. Numerous calcified pulmonary nodules are unchanged from earlier exams. Several tiny noncalcified nodules are also unchanged. Central airways are patent. Subpleural opacities reflect atelectasis. There is no consolidation to suggest pneumonia. There is no pneumothorax or pleural effusion. Calcified density adjacent to the spleen is unchanged. A right ureteral stent is partially imaged. IMPRESSION: 1. No pulmonary emboli identified. 2. No consolidation to suggest pneumonia. 3. Evidence for a previous granulomatous process. No significant change in appearance of the chest. ACT 112: Negative or not required by law. Electronically signed by: Stewart Mcclellan M.D. 10/15/2023 4:33 PM Discharge Plan Visit Data Chief Complaint: Shortness of Breath/Dyspnea Stated Complaint: SOB, SHAKY ED Provider: Ciara Sarah Discharge Problem: Shortness of breath, Hypomagnesemia, Acute exacerbation of chronic obstructive pulmonary disease, Leukocytosis, Acute respiratory failure with hypoxia Forms Stand Alone Forms: [facility] doUdeal Prescriptions Prescriptions: No Action budesonide-formoterol [Symbicort] 160-4.5 mcg/actuation Hfa Aerosol Inhaler 2 puff INHALATION BID bupropion HCl [Wellbutrin SR] 150 mg tablet sustained-release 12 hr 150 mg PO BID sertraline 50 mg tablet 50 mg PO HS calcium carbonate-vitamin D3 [Calcium 500 + D] 500 mg(1,250mg) -200 unit Tablet 1 tab PO BID fluticasone propionate 50 mcg/actuation [place],Suspension 1 spray INTRANASAL QAM atorvastatin 20 mg Tablet 20 mg PO QAM metoprolol succinate 25 mg tablet extended release 24 hr 12.5 mg PO QAM aspirin 81 mg Capsule 81 mg PO QAM phenazopyridine [Pyridium] 200 mg tablet 200 mg PO Q8H PRN (Reason: pain) Qty: 10 0RF tamsulosin 0.4 mg capsule 0.4 mg PO HS Qty: 30 0RF losartan 50 mg tablet 50 mg PO QAM cyclobenzaprine 10 mg tablet 10 mg PO HS PRN (Reason: Muscle Spasm) benzonatate 100 mg capsule 100 mg PO TID PRN (Reason: Cough) Patient Comments: VERY SELDOM multivitamin Tablet 1 tab PO QAM Medical Marijuana Card 1 dose PO UD PRN (Reason: ANXIETY AND PAIN) Referrals Referrals: Ivy Holden PA-C [Primary Care Provider] -
--- NOTE | 2023-10-15 15:25 | XRay Report ---
SINGLE VIEW CHEST CLINICAL HISTORY: Dyspnea FINDINGS: An AP, portable, upright chest radiograph is compared to study dated 12/24/2022 and correlat ed with chest CT dated 08/16/2022. The cardiomediastinal silhouette is top normal for projection notin g atherosclerotic calcification of the thoracic aorta. There are scattered calcified granulomas. Emph ysema and chronic interstitial thickening is similar to previous. There is bibasilar scarring/atelect asis. No airspace consolidation or large pleural effusion is identified. No pneumothorax is seen. The skeletal structures are osteopenic. The bony thorax is grossly intact. Arthritic change is noted in the shoulders. IMPRESSION: Emphysematous change with no acute cardiopulmonary abnormality identified. ACT 112: Negative or not required by law. Electronically signed by: Israel Ly M.D. 10/15/2023 3:22 PM
[2023-10-15 15:31] LABS: Basophils # (auto) 0.04 K/uL (0.00-0.20); Basophils % (auto) 0.3 %; Eosinophils # (auto) 0.01 K/uL (0.00-0.50); Eosinophils % (auto) 0.1 %; Hematocrit (blood only) 40.1 % (37.0-47.0); Hemoglobin 13.7 g/dl (12.0-16.0); Immature Granulocytes # (auto) 0.06 K/uL (0.01-0.20); Immature Granulocytes % (auto) 0.4 %; Lymphocytes # (auto) 0.95 K/uL (1.20-3.40); Lymphocytes % (auto) 7.1 %; Mean Corpuscular Hemoglobin 36.3 pg (25.0-34.0); Mean Corpuscular Hgb Conc 34.2 g/dL (32.0-36.0); Mean Corpuscular Volume 106.4 fL (80.0-100.0); Mean Platelet Volume 10.1 fL (9.4-12.4); Monocytes # (auto) 0.93 K/uL (0.11-0.59); Monocytes % (auto) 6.9 %; Neutrophils # (auto) 11.45 K/uL (1.40-6.50); Neutrophils % (auto) 85.2 %; Platelet Count 310 K/uL (130-400); RDW Coefficient of Variation 12.9 % (11.5-14.5); RDW Standard Deviation 50.9 fL (36.4-46.3); Red Blood Count 3.77 M/uL (4.20-5.40); White Blood Count 13.44 K/ul (4.8-10.8)
[2023-10-15 15:40] LABS: Base Excess VBG 4.7 mEq/L; HCO3 VBG 31 mmol/L; Oxygen Saturation VBG 65.9 %; PCO2 VBG 51 mmHg (38-50); PO2 VBG 33 mmHg; pH VBG 7.39 (7.36-7.41)
[2023-10-15 15:43] LABS: Albumin Globulin Ratio 1.3 (0.9-2); Albumin Level 4.3 gm/dl (3.4-5.0); BUN Creatinine Ratio 18.1 (10-20); Bilirubin,Total 0.7 mg/dl (0.2-1.0); Calcium 9.5 mg/dl (8.6-10.3); Creatinine Clr Calc Pharmacy 66.1 ml/min; Est GFR (African American) 89.5 ml/min; Est GFR (Non-African American) 77.2 ml/min; Globulin 3.4 gm/dl (2.5-4.0); Magnesium 1.5 mg/dl (1.7-2.4); Potassium 4.5 mmol/L (3.5-5.1); Total Protein 7.7 gm/dl (6.0-8.3)
[2023-10-15 15:48] LABS: Troponin I High Sensitivity 4.4 pg/ml (0-14)
[2023-10-15 15:49] LABS: Prothrombin Time 10.9 Seconds (9.0-12.0)
--- NOTE | 2023-10-15 15:54 | Electrocardiogram Report ---
Test Reason : Blood Pressure : / mmHG Vent. Rate : 087 BPM Atrial Rate : 087 BPM P-R Int : 162 ms QRS Dur : 078 ms QT Int : 338 ms P-R-T Axes : 066 066 055 degrees QTc Int : 406 ms Sinus rhythm with marked sinus arrhythmia Poor R wave progression, consider anterior MT vs. lead placement vs. LVH Abnormal ECG When compared with ECG of 03-JAN-2023 13:32, No significant change was found Confirmed by Rosalio Montenegro ([id number]) on 10/15/2023 3:53:40 PM Referred By: Confirmed By:Rosalio Montenegro
[2023-10-15] MEDS ORDERED: OPTIRAY 320 500ml IV ONE (16:03)
--- NOTE | 2023-10-15 16:34 | CT Scan Report ---
CT ANGIOGRAPHY OF THE CHEST, PULMONARY EMBOLUS PROTOCOL CLINICAL HISTORY: Dyspnea. COMPARISON STUDY: Chest CT August 16, 2022. Chest radiograph performed earlier today. TECHNIQUE: Following IV administration of 115 mL of Optiray, helical axial images of the chest were o btained utilizing the pulmonary embolus protocol. Maximal intensity projections and sagittal and cor onal reformats were viewed on an independent 3D workstation. IV contrast was administered without co mplication. Automated exposure control was utilized for the study. A dose lowering technique was ut ilized adhering to the principles of ALARA. CT DOSE: 608.07 mGy.cm FINDINGS: No pulmonary emboli are identified. There is no thoracic aortic dissection. Size of the he art is normal. There is no pericardial effusion. Numerous calcified pulmonary nodules are unchanged f rom earlier exams. Several tiny noncalcified nodules are also unchanged. Central airways are patent. Subpleural opacities reflect atelectasis. There is no consolidation to suggest pneumonia. There is no pneumothorax or pleural effusion. Calcified density adjacent to the spleen is unchanged. A right ure teral stent is partially imaged. IMPRESSION: 1. No pulmonary emboli identified. 2. No consolidation to suggest pneumonia. 3. Evidence for a previous granulomatous process. No significant change in appearance of the chest. ACT 112: Negative or not required by law. Electronically signed by: Stewart Mcclellan M.D. 10/15/2023 4:33 PM
[2023-10-15 16:37] LABS: Adenovirus PCR Not Detected (NotDetected); Bordetella parapertussis PCR Not Detected (NotDetected); Bordetella pertussis PCR Not Detected (NotDetected); Chlamydia pneumoniae PCR Not Detected (NotDetected); Coronavirus 229E PCR Not Detected (NotDetected); Coronavirus CoV-2 (COVID19)PCR Not Detected (NotDetected); Coronavirus HKU1 PCR Not Detected (NotDetected); Coronavirus NL63 PCR Not Detected (NotDetected); Coronavirus OC43PCR Not Detected (NotDetected); Human Metapneumovirus PCR Not Detected (NotDetected); Influenza A PCR Not Detected (NotDetected); Influenza B PCR Not Detected (NotDetected); Mycoplasma pneumoniae PCR Not Detected (NotDetected); Parainfluenza Virus 1 PCR Not Detected (NotDetected); Parainfluenza Virus 2 PCR Not Detected (NotDetected); Parainfluenza Virus 3 PCR Not Detected (NotDetected); Parainfluenza Virus 4 PCR Not Detected (NotDetected); Respiratory Syncytial VirusPCR Not Detected (NotDetected); Rhinovirus/Enterovirus PCR Not Detected (NotDetected)
[2023-10-15] MEDS ORDERED: MAGNESIUM SULFATE / D5W 1 GM/100 ML BAG IV STA (16:37)
[2023-10-15] MEDS ORDERED: methylPREDNISolone 125 MG/2 ML VIAL IV STA (16:37)
--- NOTE | 2023-10-15 17:43 | History & Physical Report ---
Date of Service October 15, 2023 Assessment & Plan (1) Acute respiratory failure with hypoxia: (2) Leukocytosis: (3) Acute exacerbation of chronic obstructive pulmonary disease: (4) Shortness of breath: (5) Hypomagnesemia: Plan: -Admit Patient to med telemetry -Acute exacerbation of COPD, history of lung adenocarcinoma status postchemotherapy, XRT, immunotherapy completed in August 2023 -Will continue her on nebulizers, Mucinex, Tessalon Perle CXR and CT PE personally reviewed, shows previous granulomatous process, negative for acute infectious etiology, negative for PE, bio fire is negative -Patient feels improved status post 1 nebulizer treatment, Solu-Medrol 125 IV administered in the ER, will switch over to prednisone 40 mg daily and plan for taper -Patient reports having history of possible needs for O2, currently sats 88-89% on 2L, she has been hesitant due to her place of work and not wanting to carry oxygen tank around the location. Will need a two-step O2 test -O2 at 2 L, wean as tolerated -Magnesium 1.5 on admission, given 1 g IV trend with a.m. labs -VBG reviewed with C02 of 51m pH 7.39, pO2 33, HCO3 31 - WBC of 13 noted, afebrile - will utilize azithromycin for antiinflammatory effects - Continue albuterol duonebs, tessalon peals, mucinex, flutter and incentive spirometry - Cessation of marijuana encouraged at bedside - pt could utilize edible version instead to avoid lung exacerbation with her pulmonary history. DVT ppx: Lines: 2 PIV FEN/GI: HH diet CODE:Full code Pt from home, likely hospital x 1 to 2 days. History of Present Illness Chief Complaint: Shortness of breath Primary Care Provider: Ivy Holden PA-C This is a 58 yo F with PMHX of left lower lobe non-small cell lung cancer s/p chemotherapy treatment with paclitaxel and carboplatin, XRT, completed a year of immunotherapy in Aug 2023 , COPD, history of tobacco use, quit in December 2021, HTN, chronic back pain, anxiety and depression. She reports that she has had increasing shortness of breath over the past 1 to 2 days and presented to the hospital as she did not quite feel herself and has a dry cough. Pt is currently smoking marijuana at least once daily. She feels that minimal ADLs causes her to feel extremely winded. She denies any fevers, chills or sweats, no abdominal complaints, she is eating and drinking without any difficulty. She denies any issues with lightheadedness or dizziness, no recent falls. Patient admits that she has been told she needed oxygen in the past, at least once over the summer this year. However states that she would feel weird and does not want to wear oxygen at her place of work. 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 Patient has been using albuterol inhaler at home and states that it does help, has not been using a spacing device which she does have available for use at home. She is using Symbicort as well. She has not been on any recent antibiotics, denies any recent sick contacts. Allergies Allergy/AdvReac Type Severity Reaction Status Date / Time Sulfa (Sulfonamide Allergy Intermediate Hives, Verified 10/15/23 17:00 Antibiotics) possible dyspnea Penicillins Allergy Mild Hives Verified 10/15/23 17:00 Home Medications Medication Instructions Recorded Confirmed Type bupropion HCl 150 mg tablet,12 hr 150 mg PO BID 09/04/19 10/15/23 History sustained-release (Wellbutrin SR) calcium carbonate 500 mg-vitamin 1 tab PO BID 09/04/19 10/15/23 History D3 5 mcg (200 unit) tablet (Calcium 500 + D) sertraline 50 mg tablet 50 mg PO HS 09/04/19 10/15/23 History budesonide-formoterol HFA 160 2 puff inhalation BID 09/16/19 10/15/23 History mcg-4.5 mcg/actuation aerosol inhaler (Symbicort) fluticasone propionate 50 1 spray intranasal QAM 11/25/20 10/15/23 History mcg/actuation nasal spray,suspension benzonatate 100 mg capsule 100 mg PO TID PRN Cough 08/16/22 10/15/23 History cyclobenzaprine 10 mg tablet 10 mg PO HS PRN Muscle Spasm 08/16/22 10/15/23 History losartan 50 mg tablet 50 mg PO QAM 08/16/22 10/15/23 History multivitamin 1 tab PO QAM 01/02/23 10/15/23 History Medical Marijuana Card 1 dose PO UD PRN ANXIETY AND PAIN 03/26/23 10/15/23 History aspirin 81 mg capsule 81 mg PO QAM 06/14/23 10/15/23 History atorvastatin 20 mg tablet 20 mg PO QAM 06/14/23 10/15/23 History metoprolol succinate 25 mg 12.5 mg PO QAM 06/14/23 10/15/23 History tablet,extended release 24 hr phenazopyridine 200 mg tablet 200 mg PO Q8H PRN pain #10 tabs 09/30/23 10/15/23 Rx (Pyridium) tamsulosin 0.4 mg capsule 0.4 mg PO HS #30 caps 09/30/23 10/15/23 Rx Past Med/Surg History Medical History Hx of respiratory syncytial virus infection 2021; all sx resolved Abnormal echocardiogram stress echo 05/[address] Ellsworth was positive for inducible ischemia; plan to manage medically at this point History of COVID-19 HX X2 : Fall 2021 (most recent) - mild symptoms, resolved Non-small cell carcinoma of lung DX 2021/HX CHEMO AND RADIATION followed by monthyl immunotherapy; has now finished all treatments Diverticular disease Kidney stone Seasonal allergies Sleep apnea cannot tolerate CPAP Depression GERD (gastroesophageal reflux disease) occasional COPD (chronic obstructive pulmonary disease) stable HTN (hypertension) follows w/ Dr Ellsworth; stable on medication Surgical History S/P cystoscopy with ureteral stent placement multiple; most recent: 06/24/23: MAC without issue History of esophagogastroduodenoscopy (EGD) Nausea and vomiting after administration of anesthetic agent no issues with recent [facility] surgeries History of colonoscopy History of lithotripsy x3; S/P Cystoscopy, right ureteroscopy, RPG, stent, laser lithotripsy (11/02/19): LMA#4 at [facility] History of total hysterectomy History of tubal ligation History of cholecystectomy History of wisdom tooth extraction History of lumbar fusion L4-5 Family History Daughter Family history of diabetes mellitus (DM) Uncle Family history of diabetes mellitus (DM) Grandfather FHx: colon cancer Grandfather (Paternal) FHx: colon cancer Mother Cancer Grandmother (Maternal) Heart disease Other No family history of adverse response to anesthesia Social History Smoking Status: Current every day smoker Tobacco Type: Cigarettes Cigarettes Per Day: 20; Second Hand Exposure: Yes; Do You Dip or Chew Tobacco: No; Hx Alcohol Use: Yes Alcohol type: beer Hx Substance Use: Yes Last Used Substance: Days (ago) Last Used Substance Other:: typically uses medical marijuana daily Substance Use Type Other:: has a medical marijuana card Preferred Language: Kazakh Communication Ability: Effective Visual Impairment: No Limitations House Moving Supervisor Required: No Beliefs That Will Affect Care: None marital status: Single Current Living Situation: Family Current Living Situation Comment: sister and daughter How many Children do You have: 2 Feels Safe at Home: Yes Assistive Devices: CPAP, Denture - Upper, Denture - Lower and Glasses Review of Systems Review of Systems: Constitutional: No fever, sweats or chills denies lightheadedness or dizziness Eyes: No diplopia, no worsening or blurred vision ENT: normal hearing, no trouble swallowing Respiratory: As per HPI with dry cough, no sputum, exertional activities, minor dyspnea at rest Cardiovascular: No chest pain, tightness or palpitations Abdomen: No pain, nausea, vomiting, diarrhea or constipation Musculoskeletal: No joint pain, calf pain, swelling Neurologic: No weakness, numbness/tingling, or balance problems Psychiatric: No anxiety or depression Skin: No rash or itch Physical Exam Physical Exam: General: awake, alert, no apparent distress, white female Head: Normocephalic, atraumatic ENT: PERRL, EOMI, no pharyngeal exudate, mucous membranes moist Chest: + exp wheeze primarily on the left side, +O2 sats 88-89% with conversation at bedside on 2 L via NC Cardiac: Regular rate and rhythm, no murmur, no JVD, normal peripheral pulses, good capillary refill Abdominal: NABS x 4 quadrants, soft, + obese abdomen, nondistended, nontender to palpation, no rebound or guarding Extremities: Normal inspection, no peripheral edema or erythema, calfs nontender to palpation Psych: Normal mood and affect Neuro: AAO x 3, strength intact bilaterally and rated 5/5, no motor deficits, speech is clear, no peripheral sensory deficits Results & Data Results & Data Vital Signs (Past 12 Hours) Vital Signs Temp Pulse Pulse Resp BP BP Pulse Ox 10/15/23 16:30 90 10/15/23 15:19 96 H 15 127/80 93 10/15/23 14:55 106 H 10/15/23 14:46 36.5 C 112 H 20 127/84 83 L O2 Del Method O2 Flow Rate 10/15/23 16:30 Nasal Cannula 2 10/15/23 15:19 Nasal Cannula 2 10/15/23 14:55 10/15/23 14:46 Room Air Laboratory Results 10/15/23 10/15/23 10/15/23 15:28 15:18 15:02 WBC 13.44 H RBC 3.77 L Hgb 13.7 Hct 40.1 MCV 106.4 H MCH 36.3 H MCHC 34.2 RDW Std Deviation 50.9 H RDW Coeff of Shai 12.9 Plt Count 310 MPV 10.1 Immature Gran % (Auto) 0.4 Neut % (Auto) 85.2 Lymph % (Auto) 7.1 Whiteside % (Auto) 6.9 Eos % (Auto) 0.1 Baso % (Auto) 0.3 Neut # (Auto) 11.45 H Lymph # (Auto) 0.95 L Whiteside # (Auto) 0.93 H Eos # (Auto) 0.01 Baso # (Auto) 0.04 Immature Gran # (Auto) 0.06 PT 10.9 INR 1.0 VBG pH 7.39 VBG pCO2 51 H VBG pO2 33 VBG HCO3 31 VBG O2 Saturation 65.9 VBG Base Excess 4.7 Sodium 138 Potassium 4.5 Chloride 100 Carbon Dioxide 31 Anion Gap 7 BUN 15 Creatinine 0.83 Est Cr Clr Drug Dosing 66.1 Est GFR ( Amer) 89.5 Est GFR (Non-Af Amer) 77.2 BUN/Creatinine Ratio 18.1 Glucose 122 H Calcium 9.5 Magnesium 1.5 L Total Bilirubin 0.7 AST 22 ALT 23 Alkaline Phosphatase 106 H Troponin I High Sens 4.4 B-Natriuretic Peptide 15 Total Protein 7.7 Albumin 4.3 Globulin 3.4 Albumin/Globulin Ratio 1.3 Adenovirus (PCR) Not Detected B. pertussis DNA (PCR) Not Detected B.parapertussis DNA PCR Not Detected C. pneumoniae DNA (PCR) Not Detected Coronavirus OC43 (PCR) Not Detected Coronavirus HKU1 (PCR) Not Detected Coronavirus 229E (PCR) Not Detected SARS-CoV-2 (PCR) Not Detected Coronavirus NL63 (PCR) Not Detected Human Metapneumovir PCR Not Detected Influenza Type A (PCR) Not Detected Influenza Type B (PCR) Not Detected M. pneumoniae (PCR) Not Detected Parainfluenza 1 (PCR) Not Detected Parainfluenza 2 (PCR) Not Detected Parainfluenza 3 (PCR) Not Detected Parainfluenza 4 (PCR) Not Detected RSV (PCR) Not Detected Entero/Rhino (PCR) Not Detected Diagnostic Findings Chest X-Ray 10/15/23 14:48 SINGLE VIEW CHEST CLINICAL HISTORY: Dyspnea FINDINGS: An AP, portable, upright chest radiograph is compared to study dated 12/24/2022 and correlated with chest CT dated 08/16/2022. The cardiomediastinal silhouette is top normal for projection noting atherosclerotic calcification of the thoracic aorta. There are scattered calcified granulomas. Emphysema and chronic interstitial thickening is similar to previous. There is bibasilar scarring/atelectasis. No airspace consolidation or large pleural effusion is identified. No pneumothorax is seen. The skeletal structures are osteopenic. The bony thorax is grossly intact. Arthritic change is noted in the shoulders. IMPRESSION: Emphysematous change with no acute cardiopulmonary abnormality identified. ACT 112: Negative or not required by law. Electronically signed by: Israel Ly M.D. 10/15/2023 3:22 PM Chest CTA 10/15/23 14:59 CT ANGIOGRAPHY OF THE CHEST, PULMONARY EMBOLUS PROTOCOL CLINICAL HISTORY: Dyspnea. COMPARISON STUDY: Chest CT August 16, 2022. Chest radiograph performed earlier today. TECHNIQUE: Following IV administration of 115 mL of Optiray, helical axial images of the chest were obtained utilizing the pulmonary embolus protocol. Maximal intensity projections and sagittal and coronal reformats were viewed on an independent 3D workstation. IV contrast was administered without complication. Automated exposure control was utilized for the study. A dose lowering technique was utilized adhering to the principles of ALARA. CT DOSE: 608.07 mGy.cm FINDINGS: No pulmonary emboli are identified. There is no thoracic aortic dissection. Size of the heart is normal. There is no pericardial effusion. Numerous calcified pulmonary nodules are unchanged from earlier exams. Several tiny noncalcified nodules are also unchanged. Central airways are patent. Subpleural opacities reflect atelectasis. There is no consolidation to suggest pneumonia. There is no pneumothorax or pleural effusion. Calcified density adjacent to the spleen is unchanged. A right ureteral stent is partially imaged. IMPRESSION: 1. No pulmonary emboli identified. 2. No consolidation to suggest pneumonia. 3. Evidence for a previous granulomatous process. No significant change in appearance of the chest. ACT 112: Negative or not required by law. Electronically signed by: Stewart Mcclellan M.D. 10/15/2023 4:33 PM ECG Additional Comments: EKG is reviewed showing sinus rhythm, no ST wave inversions or signs of ischemia Code Status & VTE Plan Code Status Full code-discussed with the patient bedside Supervising Physician Co-Signing Physician Notes I have seen and examined the patient and have discussed the case with the provider above. I agree with the assessment and plan as stated. 58-year-old female presents with COPD exacerbation likely secondary to vaping marijuana. Bio fire is negative and there is no evidence of pneumonia however she is hypoxic and wheezing. On exam she appears comfortable on 2 L nasal cannula. She is otherwise hemodynamically stable and afebrile. Agree with physical exam as noted above. Advised patient to avoid vaping or smoking anything. She has a plan now to use edibles instead. The CT was reviewed with the patient and compared to last year CT showing previous cranial limitus process. Agree with plan for steroids, mag replacement, azithromycin and DuoNebs. Cessation of smoking encouraged. DO [place]
[2023-10-15] MEDS ORDERED: ONDANSETRON INJ 2 MG/ML 2 ML VIAL IV PRN (19:33)
[2023-10-15] MEDS ORDERED: BENZONATATE 100 MG CAPSULE PO PRN (19:33)
[2023-10-15] MEDS ORDERED: ALBUT/IPRATROP 3MG/0.5MG NEB 3 ML VIAL NEB SCH (19:33)
[2023-10-15] MEDS ORDERED: ACETAMINOPHEN 325 MG TAB PO PRN (19:33)
[2023-10-15] MEDS ORDERED: PHENAZOPYRIDINE HCL 200 MG TAB PO PRN (19:33)
[2023-10-15] MEDS ORDERED: CYCLOBENZAPRINE HCL 10 MG TAB PO PRN (19:33)
[2023-10-15] MEDS ORDERED: AZITHROMYCIN 250 MG TAB PO ONE (19:33)
[2023-10-15] MEDS: CALCIUM 600MG + VIT D 400 IU TAB PO SCH (20:38)
[2023-10-15] MEDS: BENZONATATE 100 MG CAPSULE PO SCH (20:38)
[2023-10-15] MEDS: buPROPion SR 150 MG TABCR PO SCH (20:38)
[2023-10-15] MEDS: SERTRALINE HCL 50 MG TABLET PO SCH (20:38)
[2023-10-15] MEDS: TAMSULOSIN HCL 0.4 MG CAP PO SCH (20:39)
[2023-10-15] MEDS: guaiFENesin 600 MG TABCR PO SCH (20:39)
--- OUTSIDE RECORDS SUMMARY | 2023-10-15 23:10 | External Medical Summary | Summary of Care ---
Author Name Unknown Organization [facility] Address [address] [facility] [place] [address] Phone [phone] Care Team Providers Care Lubrication Supervisor Name Role Phone Ivy Holden PA-C Primary Care Provider [phone] Reason for Visit * Reason Comments eRx-Medication Refill Encounter Details Date Type Department Care Team (Late st Contact Info) Description 10/10/2023 Refill Family Practice [facility] [place] [address] [facility] [place] [id number] Ivy Holden PA-C [address] [facility] [place] [id number] HTN, goal below 140/90 Allergies Active Allergy Reactions Criticality Noted Date Comments Penicillins Hives 01/26/2013 Sulfa Antibiotics Hives,Rash 01/26/2013 documented as of this encounter (statuses as of 10/11/2023) Medications Medication Sig Dispensed Refills Start Date End Date Status CALCIUM 1000 + D 1000-800 MG-UNIT PO TABS 2 daily 30 Tab 0 01/26/2013 Active Cyclobenzaprine HCl 10 MG Oral Tablet (Flexeril)Indications :DDD (degenerative disc disease), lumbar TAKE 1 TABLET BY MOUTH AT BEDTIME NEEDED FOR MUSCLE SPASMS. 30 Tablet 1 04/09/2022 Active Ondansetron HCl 8 MG Oral TabletIndications:Mal ignant neoplasm of lower lobe of left lung (HCC),Hilar lymphadenopathy Take by mouth 1 Tablet every 8 hours as needed for Nausea. 30 Tablet 3 06/12/2022 Active Prochlorperazine Maleate 10 MG Oral Tablet (Compazine)Indication s:Malignant neoplasm of lower lobe of left lung (HCC),Hilar lymphadenopathy Take by mouth 1 Tablet every 6 hours as needed for Nausea. 60 Tablet 2 06/12/2022 Active Benzonatate 100 MG Oral Capsule (Tessalon Perles) Take by mouth 1 Capsule as needed in the morning AND 1 Capsule as needed at noon AND 1 Capsule as needed in the evening for Cough. Do not cut, crush, or chew.. 50 Capsule 1 08/09/2022 Active Azithromycin 250 MG Oral Tablet (Zithromax)Indication s:COPD, moderate (HCC) Take two pills by mouth on first day, then one pill a day RESCUE KIT 6 Tablet 2 08/09/2022 Active Triamcinolone Acetonide 0.1 % Mouth/Throat Paste (Kenalog In [place])Indications:M outh sore Apply to inside of cheek 3 times a day . To affected area. 5 g 3 08/09/2022 Active Additional Information Patient not taking.Reported on 06/27/2023 Doxycycline Hyclate 100 MG Oral Tablet Take 1 Tablet by mouth in the morning and 1 Tablet in the evening. 0 08/28/2022 Active Multivitamin Adults Oral Tablet Take 1 Tablet by mouth every evening. 30 Tablet 0 08/28/2022 Active Fluticasone Propionate 50 MCG/ACT Nasal Suspension (Flonase)Indications: Dysfunction of both eustachian tubes SPRAY 2 SPRAYS INTO EACH NOSTRIL EVERY DAY 48 mL 3 03/25/2023 Active Aspirin 81 MG Oral Tablet Delayed Release Take 1 Tablet by mouth in the morning. 30 Tablet 11 05/28/2023 Active Metoprolol Succinate ER 25 MG Oral Tablet Extended Release 24 Hour (toPROL XL) One half tablet by mouth daily 45 Tablet 3 05/28/2023 Active Nitroglycerin 0.4 MG Sublingual Tablet Sublingual (Nitrostat)Indication s:SALDIVAR (dyspnea on exertion),Abnormal stress echocardiogram Place 1 Tablet under the tongue every 5 minutes as needed for Pain, Chest. up to 3 doses in 15 minutes 25 Tablet 11 05/28/2023 Active Additional Information Patient not taking.Reported on 06/27/2023 Atorvastatin Calcium 20 MG Oral Tablet (Lipitor) Take 1 Tablet by mouth in the morning. 90 Tablet 3 06/06/2023 Active Ciprofloxacin HCl 500 MG Oral Tablet (Cipro) Take 1 Tablet by mouth every evening. 0 Active Tamsulosin HCl 0.4 MG Oral Capsule (Flomax) Take 1 Capsule by mouth in the morning. 0 Active Phenazopyridine HCl 100 MG Oral Tablet (Pyridium) Take 1 Tablet by mouth 3 times a day as needed. 0 Active Spiriva HandiHaler 18 MCG Inhalation Capsule (tiotropium bromide) INHALE 1 CAP BY MOUTH DAILY. . DO NOT SWALLOW CAPSULE. 90 Capsule 1 07/18/2023 Active Additional Information Patient not taking.Reported on 09/26/2023 buPROPion HCl ER (SR) 150 MG Oral Tablet Extended Release 12 Hour (Wellbutrin SR) TAKE 1 TABLET BY MOUTH EVERY DAY IN THE MORNING AND BEFORE BEDTIME 180 Tablet 3 07/22/2023 Active Symbicort 160-4.5 MCG/ACT Inhalation AerosolIndications:CO PD (chronic obstructive pulmonary disease) ([facility]) Inhale 2 Puffs by mouth in the morning and 2 Puffs before bedtime. 30.6 g 3 07/22/2023 Active Sertraline HCl 50 MG Oral Tablet (Zoloft)Indications:A djustment disorder with depressed mood Take 1 Tablet by mouth in the morning. 90 Tablet 3 07/21/2023 Active Albuterol Sulfate HFA 108 (90 Base) MCG/ACT Inhalation Aerosol SolutionIndications:C OPD, group D, by GOLD 2017 classification ([facility]),Bronchitis, complicated INHALE 2 PUFFS BY MOUTH EVERY 4 HOURS NEEDED FOR WHEEZE 18 g 1 08/19/2023 Active Losartan Potassium 50 MG Oral Tablet (Cozaar)Indications:H TN, goal below 140/90 Take 1 Tablet by mouth in the morning. 90 Tablet 0 09/26/2023 Active Hospital, Clinic, or Other Facility Administered Medication Ordered Dose Route Frequency Start Date End Date Status albuterol-ipratropium (DUONEB) inhalation solution 3 mLIndications:Lung infection 3 mL NEBULIZER RESPQID 01/14/2018 Active documented as of this encounter (statuses as of 10/11/2023) Active Problems Problem Noted Date Diagnosed Date Food insecurity 08/27/2022 Overview: Per [facility] Protocol Malignant neoplasm of lower lobe of left lung Hilar lymphadenopathy 06/12/2022 Encounter for antineoplastic chemotherapy 2021 Major depressive disorder, recurrent, unspecifie d 09/08/2019 COPD, group D, by GOLD 2017 classification 03/23 Overview: Per COPD GOLD Classification Family history of cancer 03/10/2019 Overview: Mother with unknown primary Night sweats 03/10/2019 Centrilobular emphysema 09/08/2018 Pulmonary nodules 09/08/2018 Cigarette nicotine dependence in remission 09/08 Tobacco abuse, in remission 05/26/2018 DDD (degenerative disc disease), lumbar 05/07/20 13 HTN, goal below 140/90 Depression documented as of this encounter (statuses as of 10/11/2023) Resolved Problems Problem Noted Date Diagnosed Date Resolved Date COPD, moderate 09/08/2018 03/25/2019 Overview: Per COPD GOLD Classification Abnormal chest x-ray 05/26/2018 018 Tobacco use disorder 03/27/2013 018 Asthma 04/07/2018 COPD (chronic obstructive pulmonary disease) 03/25/2019 documented as of this encounter (statuses as of 10/11/2023) Immunizations Name Administration Dates Next Due Pneumococcal Conjugate Vacc, 13 Valent (Prevnar) 10/04/2016 Pneumococcal Polysaccharide PPV23 (Pneumovax) 10/10/2017 Seasonal Influenza, PF, 6 M & above, IM , (FluLaval or Fluzone) 06/27/2023,07/30/2022,10/04/2021,06/23,08/08/2019,09/08/2018 Seasonal Influenza, Quadriva lent, No Preserve, IM 10/04/2016 Seasonal Influenza, Split, I IV3, With Preserve, Inj 08/05/2017,07/20/2014,06/14/2012 TDAP (age 10 and older)(Boostrix) 03/02/2014 Zoster Vaccine Recombinant (Shingrix) 06/23/2020 ,11/30/2019 documented as of this encounter Social History Tobacco Use Types Packs/Day Years Used Date Smoking Tobacco: Former Cigarettes 1 35 Q uit: 12/12/2021 Smokeless Tobacco: Never Alcohol Use Standard Drinks/Week Comments Yes 0 (1 standard drink = 0.6 oz pure alcohol) socially, few drinks once a week AUDIT-C Answer Date Recorded Frequency of Alcohol Consumption Not on file 01/26/2019 Average Number of Drinks Not on file 019 Frequency of Binge Drinking Weekly 01/12 PHQ-2 Answer Date Recorded PHQ-2 Score 4 11/30/2019 Hunger Vital Sign Answer Date Recorded Within the past 12 months, y ou worried that your food would run out before you got the money to buy more. Sometimes true Within the past 12 months, t he food you bought just didn't last and you didn't have money to get more. Sometimes true Sex and Gender Information Value Date Recorded Sex Assigned at Female 01/26/2019 9:52 AM EDT Gender Identity Female 01/26/2019 9:52 AM EDT Sexual Orientation Straight 01/26/2019 9: 52 AM EDT Job Start Date Occupation Industry Not on file Not on file Not on file documented as of this encounter Miscellaneous Notes * Telephone Encounter - Marcela Martin [facility] - 10/11/2023 10:02 AM EST Refused Prescriptions: Disp Refills Losartan Potassium 50 MG Oral Tablet (Coza*90 Tab*3 Sig: TAKE 1 TABLET BY MOUTH EVERY DAY IN THE MORNINGRefused By: MARCELA MARTIN for Refusal: Too soon documented in this encounter Plan of Treatment Upcoming Encounters Date Type Department Care Team (Late st Contact Info) Description 11/05/2023 8:30 AM EST Office Visit Cardiology, [facility] [address] [address] Paola Foster PA-C [address] [place] [address] 11/19/2023 9:30 AM EST Imaging Radiology [facility] [facility] [place] [address] [place] [address] 12/05/2023 9:15 AM EST Office Visit Hematology/Oncology [facility] [address] [place] [address] Igor Sommers MD [address] [place] [address] 03/27/2024 9:30 AM EDT Office Visit Radiation Oncology, [facility] [address] [place] [address] Ernesto Hoffman MD [address] [place] [address] Scheduled Procedures Name Priority Associated Diagnoses Date/Ti me COLONOSCOPY FLEXIBLE PROXIMAL DIAGNOSTIC Recall History of colon polyps Health Maintenance Due Date Last Done Comments Hepatitis B (1 of 3 - 3-dose series) 1965 COVID-19 Vaccine (#1) 1965 *ADVANCE DIRECTIVE NOT ON FILE 03/28/2019 Depression Screening 11/30/2020 11/30/2019 Mammogram 06/20/2022 06/20/2021, 06/14, 04/09/2019, Additional history exists DTaP,Tdap,and Td Vaccines (2 - Td or Tdap) 03/02/2024 03/02/2014 GFR 08/05/2024 08/05/2023, 06/15, 06/06/2023, Additional history exists O2 ASSESSMENT COMPLETED IN PAST YEAR FOR COPD 09/26/2024 09/26/2023 COLONOSCOPY-EVERY 5 YRS AGES 18-100 10/19/2024 10/19/2019, 09/13/2014, 09/13/2014 Albumin/Creatinine Ratio 10/19/2025 10/19/2022 Diabetes Screening 08/05/2026 08/05/2023, 0 07/08/2023, 06/06/2023, Additional history exists Lipid Panel 06/06/2028 06/06/2023, 01/12, 04/07/2018, Additional history exists Pneumococcal Vaccine: Pediatrics (0 to 5 Years) and At-Risk Patients (6 to 64 Years) (3 - PPSV23 or PCV20) 2029 10/10/2017, 10/04/2016 Alpha-1 Antitrypsin Completed 02/26/2019 Zoster Vaccines Completed 06/23/2020, 11/30/2019 Influenza Vaccine (FLU shot) Completed , 07/30/2022, 10/04/2021, Additional history exists GARDASIL-HPV IMMUNIZATION SERIES Aged Out No longer eligible based on patient's age to complete this topic MENINGOCOCCAL (MENACTRA/MENVEO) Aged Out No longer eligible based on patient's age to complete this topic documented as of this encounter Medical Devices Not on filedocumented as of this encounter Visit Diagnoses Diagnosis HTN, goal below 140/90 Unspecified essential hypertension documented in this encounter Care Teams Lubrication Supervisor Relationship Specialty Start Date End Date AdinaJanuary Blanquita, ANU [address] [place] [address] PCP - General Physician Cemetery Manager 11/30/19 documented as of this encounter
[2023-10-16 01:28] LABS: Appearance Urine Cloudy (Clear); Bacteria Urine Automated Negative (Negative); Bilirubin Urine Negative (Negative); Blood Urine 3+ (Negative); Color Urine Yellow; Epithelial Cell Urine Auto 20-30 /lpf (0-5); Glucose Urine UA Negative (Negative); Ketones Urine Negative (Negative); Leukocyte Esterase Urine 2+ (Negative); Nitrite Urine Negative (Negative); Protein Urine 2+ (Negative); RBC Urine Automated >30 /hpf (0-4); Specific Gravity Urine 1.028 (1.000-1.030); Urobilinogen Urine Negative (Negative); pH Urine 5.5 (4.5-7.5)
[2023-10-16] MEDS ORDERED: ALBUT/IPRATROP 3MG/0.5MG NEB 3 ML VIAL ONE (05:55)
[2023-10-16] MEDS: ALBUT/IPRATROP 3MG/0.5MG NEB 3 ML VIAL NEB SCH ×5 (06:00→18:18)
[2023-10-16 07:21] LABS: Hemoglobin 13.5 g/dl (12.0-16.0); Mean Corpuscular Hgb Conc 33.8 g/dL (32.0-36.0); Mean Corpuscular Volume 106.7 fL (80.0-100.0); Mean Platelet Volume 10.2 fL (9.4-12.4); Platelet Count 318 K/uL (130-400); RDW Coefficient of Variation 12.6 % (11.5-14.5); RDW Standard Deviation 49.3 fL (36.4-46.3); Red Blood Count 3.75 M/uL (4.20-5.40); White Blood Count 9.87 K/ul (4.8-10.8)
[2023-10-16 07:35] LABS: Calcium 9.5 mg/dl (8.6-10.3); Creatinine Clr Calc Pharmacy 56.5 ml/min; Est GFR (African American) 82.2 ml/min; Est GFR (Non-African American) 70.9 ml/min; Potassium 4.5 mmol/L (3.5-5.1)
[2023-10-16] MEDS ORDERED: FLUTICASONE/VILANTEROL 100/25MCG 14 PUFFS/INHALER INH SCH (09:00)
[2023-10-16 09:12] LABS: Magnesium 1.9 mg/dl (1.7-2.4)
[2023-10-16] MEDS: FLUTICASONE PROPIONATE NA SPR 16 GM BTL SCH (09:20)
[2023-10-16] MEDS: METOPROLOL SUCC 25MG EXT REL TAB PO SCH (09:21)
[2023-10-16] MEDS: ASPIRIN 81 MG ECTAB PO SCH (09:21)
[2023-10-16] MEDS: ATORVASTATIN 20 MG TAB PO SCH (09:21)
[2023-10-16] MEDS: MULTIVITAMIN TAB PO SCH (09:22)
[2023-10-16] MEDS: LOSARTAN POTASSIUM 50 MG TAB PO SCH (09:22)
[2023-10-16] MEDS: predniSONE 20 MG TAB PO SCH (09:22)
[2023-10-16] MEDS: BENZONATATE 100 MG CAPSULE PO SCH ×3 (09:28→21:34)
[2023-10-16] MEDS: CALCIUM 600MG + VIT D 400 IU TAB PO SCH ×2 (11:07→21:32)
[2023-10-16] MEDS: buPROPion SR 150 MG TABCR PO SCH ×2 (11:07→21:31)
[2023-10-16] MEDS: guaiFENesin 600 MG TABCR PO SCH ×2 (11:07→21:30)
--- NOTE | 2023-10-16 14:31 | Hospitalist Progress Note ---
Date of Service October 16, 2023 Assessment & Plan (1) Acute respiratory failure with hypoxia: (2) Leukocytosis: (3) Acute exacerbation of chronic obstructive pulmonary disease: (4) Shortness of breath: (5) Hypomagnesemia: Plan: This is a 58 yr old F who has a significant PMH of COPD, HTN, prior hx of tobacco abuse, depression, hx of left lung ca in 2021 s/p chemo, xrt and immunotherapy in 2022 who presented with worsened SOB, hypoxic and evidence of COPD exac: She is being treated for the following: Acute hypoxic respiratory failure COPD Exacerbation admitted to medical Acute exacerbation of COPD, history of lung adenocarcinoma status postchemotherapy, XRT, immunotherapy completed in August 2023 continue nebulizers, Mucinex, Tessalon Perle biofire negative on admission CXR/CT PE negative, hx of prior granulomatous process continue azithromycin and oral prednisone wean oxygen as able Patient reports having history of possible needs for O2, currently sats 88-89% on 2L, she has been hesitant due to her place of work and not wanting to carry oxygen tank around the location. Will need a two-step O2 test Wean O2 as tolerated encourage cessation of smoking marijuana script written for nebulizer continue Symbicort (breo on formulary) Hypomagnesemia replaced HTN chronic, stable continue losartan, metoprolol HLD chronic, stable continue statin DVT ppx: add Lovenox CODE:Full code Dispo: Pt remains hospitalized, not yet medically ready for D/C. Pt was seen and examined in collaboration with Dr. Mireles, please see addendum Order CBC, CMP, Mag in a.m. Admission and Anticipated Discharge Date Admission Date: October 15, 2023 Supervising Physician Co-Signing Physician Notes Patient seen and examined independently. Discussed with the provider. Increase DuoNebs to every 4 hour Continue prednisone Nebulized formoterol and budesonide. Wean down oxygen as tolerated. Subjective Patient was seen and examined in room 354-1. F/U COPD Exac. She is feeling much better than yesterday. She still c/o of SOB but much improved on oxygen. She states she previously was on oxygen but stopped wearing it because she has a good job and was afraid it would affect her at work. She denies f/c/s, chest pain, n/v/d, abd pain. She has a productive cough. Review of Systems Review of Systems: All systems reviewed & are unremarkable except as noted in HPI & below Physical Exam Physical Exam: Gen: WD/WN, NAD, A&O x3 HEENT: Normocephalic, atraumatic, conjunctivae moist, sclerae anicteric, mucous membranes moist. Lung: Clear to Auscultation bilaterally, no wheezes/rales/rhonchi on O2 via NC, b/l exp wheeze at bases Heart: Regular rate, regular rhythm, no murmurs, rubs, or gallops Abdomen: Soft, NT, ND +BS x 4 Extremities: No edema Skin: Warm, no rash, negative turgor. Results & Data Results & Data Vital Signs (Past 12 Hours) Vital Signs Temp Pulse Resp BP Pulse Ox O2 Del Method O2 Flow Rate 10/16/23 10:12 83 22 90 Nasal Cannula 4 10/16/23 07:25 Nasal Cannula 4 10/16/23 07:21 36.8 C 91 H 16 121/67 94 Nasal Cannula 4 10/16/23 06:03 90 22 91 Nasal Cannula 4 Laboratory Results Short CBC 10/15/23 10/16/23 Range/Units 15:02 05:58 WBC 13.44 H 9.87 (4.8-10.8) K/ul Hgb 13.7 13.5 (12.0-16.0) g/dl Hct 40.1 40.0 (37.0-47.0) % Plt Count 310 318 (130-400) K/uL BMP 10/15/23 10/16/23 15:02 05:58 Sodium 138 137 Potassium 4.5 4.5 Chloride 100 99 Carbon Dioxide 31 28 BUN 15 24 H Creatinine 0.83 0.89 Glucose 122 H 149 H Calcium 9.5 9.5 Liver Function 10/15/23 Range/Units 15:02 Total Bilirubin 0.7 (0.2-1.0) mg/dl AST 22 (13-39) U/L ALT 23 (7-52) U/L Alkaline Phosphatase 106 H (34-104) U/L Albumin 4.3 (3.4-5.0) gm/dl Urine 10/16/23 Range/Units Unknown Urine Color Yellow Urine Appearance Cloudy A (Clear) Urine pH 5.5 (4.5-7.5) Ur Specific [place] 1.028 (1.000-1.030) Urine Protein 2+ H (Negative) Urine Glucose (UA) Negative (Negative) I have independently reviewed and interpreted patient's labs including CBC, BMP. Medications Administered Current Inpatient Medications Acetaminophen (Acetaminophen 325 Mg Tab) 650 mg PO Q4H PRN PRN Reason: Moderate Pain (Scale 4, 5, 6) Stop: 11/14/23 19:32 Albuterol (Albut/Ipratrop 3mg/0.5mg Neb 3 Ml Vial) 3 ml NEB QIDR [facility]; Protocol Stop: 11/15/23 06:59 Last Admin: 10/16/23 10:11 Dose: 3 ml Aspirin (Aspirin 81 Mg Ectab) 81 mg PO [facility] Stop: 11/15/23 08:59 Last Admin: 10/16/23 09:21 Dose: 81 mg Atorvastatin Calcium (Atorvastatin 20 Mg Tab) 20 mg PO [facility] Stop: 11/15/23 08:59 Last Admin: 10/16/23 09:21 Dose: 20 mg Azithromycin (Azithromycin 250 Mg Tab) 250 mg PO HS [facility] Stop: 10/21/23 21:01 Benzonatate (Benzonatate 100 Mg Capsule) 100 mg PO TID PRN PRN Reason: Cough Stop: 11/14/23 19:32 Last Admin: 10/15/23 23:46 Dose: 100 mg Benzonatate (Benzonatate 100 Mg Capsule) 100 mg PO TID [facility] Stop: 11/14/23 20:59 Last Admin: 10/16/23 09:28 Dose: 100 mg Bupropion HCl (Bupropion Sr 150 Mg Tabcr) 150 mg PO BID [facility] Stop: 11/14/23 20:59 Last Admin: 10/16/23 11:07 Dose: 150 mg Calcium/Vitamin D (Calcium 600mg + Vit D 400 Iu Tab) 1 tab PO BID [facility] Stop: 11/14/23 20:59 Last Admin: 10/16/23 11:07 Dose: 1 tab Cyclobenzaprine HCl (Cyclobenzaprine Hcl 10 Mg Tab) 10 mg PO HS PRN PRN Reason: Muscle Spasm Stop: 11/14/23 19:32 Fluticasone Propionate (Fluticasone Propionate Na Spr 16 Gm Btl) 1 sprays NA [facility] Stop: 11/15/23 08:59 Last Admin: 10/16/23 09:20 Dose: 1 sprays Fluticasone/Vilanterol (Fluticasone/Vilanterol 100/25mcg 14 Puffs/Inhaler) 1 puffs INH DAILY [facility] Stop: 11/15/23 08:59 Last Admin: 10/16/23 09:20 Dose: 1 puffs Guaifenesin (Guaifenesin 600 Mg Tabcr) 1,200 mg PO Q12 [facility] Stop: 11/14/23 20:59 Last Admin: 10/16/23 11:07 Dose: 1,200 mg Losartan Potassium (Losartan Potassium 50 Mg Tab) 50 mg PO QAM [facility] Stop: 11/15/23 08:59 Last Admin: 10/16/23 09:22 Dose: 50 mg Metoprolol Succinate (Metoprolol Succ 25mg Ext Rel Tab) [facility] Stop: 11/15/23 08:59 Last Admin: 10/16/23 09:21 Dose: 12.5 mg Multivitamins (Multivitamin Tab) [facility] Stop: 11/15/23 08:59 Last Admin: 10/16/23 09:22 Dose: 1 tab Ondansetron HCl (Ondansetron Inj 2 Mg/Ml 2 Ml Vial) 4 mg IV Q4H PRN PRN Reason: Nausea And Vomiting Stop: 11/14/23 19:32 Phenazopyridine HCl (Phenazopyridine Hcl 200 Mg Tab) 200 mg PO Q8H PRN PRN Reason: pain Stop: 11/14/23 19:32 Prednisone (Prednisone 20 Mg Tab) 40 mg PO DAILY [facility] Stop: 11/15/23 08:59 Last Admin: 10/16/23 09:22 Dose: 40 mg Sertraline HCl (Sertraline Hcl 50 Mg Tablet) 50 mg PO HS [facility] Stop: 11/14/23 20:59 Last Admin: 10/15/23 20:38 Dose: 50 mg Tamsulosin HCl (Tamsulosin Hcl 0.4 Mg Cap) 0.4 mg PO HS [facility] Stop: 11/14/23 20:59 Last Admin: 10/15/23 20:39 Dose: 0.4 mg
[2023-10-16] MEDS: FORMOTEROL 20 MCG/2 ML VIAL NEB SCH ×2 (15:52→17:54)
[2023-10-16] MEDS: BUDESONIDE 0.5 MG/2 ML VIAL (PULMICORT) NEB SCH ×2 (15:52→17:54)
[2023-10-16] MEDS: AZITHROMYCIN 250 MG TAB PO SCH (16:27)
[2023-10-16] MEDS ORDERED: AZITHROMYCIN 250 MG TAB PO SCH (21:00)
[2023-10-16] MEDS: TAMSULOSIN HCL 0.4 MG CAP PO SCH (21:31)
[2023-10-16] MEDS: SERTRALINE HCL 50 MG TABLET PO SCH (21:31)
[2023-10-16] MEDS: ENOXAPARIN INJ 40 MG/0.4 ML SYR SQ SCH (21:32)
[2023-10-17] MEDS: ALBUT/IPRATROP 3MG/0.5MG NEB 3 ML VIAL NEB SCH ×7 (00:39→22:27)
[2023-10-17] MEDS: BUDESONIDE 0.5 MG/2 ML VIAL (PULMICORT) NEB SCH ×2 (07:12→19:26)
[2023-10-17] MEDS: FORMOTEROL 20 MCG/2 ML VIAL NEB SCH ×2 (07:12→19:25)
[2023-10-17 07:27] LABS: BUN Creatinine Ratio 42.5 (10-20); Creatinine Clr Calc Pharmacy 62.8 ml/min; Est GFR (African American) 93.5 ml/min; Est GFR (Non-African American) 80.7 ml/min; Magnesium 1.7 mg/dl (1.7-2.4); Potassium 4.5 mmol/L (3.5-5.1)
[2023-10-17 07:48] LABS: Hematocrit (blood only) 36.5 % (37.0-47.0); Hemoglobin 11.9 g/dl (12.0-16.0); Mean Corpuscular Hgb Conc 32.6 g/dL (32.0-36.0); Mean Corpuscular Volume 110.3 fL (80.0-100.0); Mean Platelet Volume 10.5 fL (9.4-12.4); Platelet Count 312 K/uL (130-400); RDW Coefficient of Variation 13.1 % (11.5-14.5); RDW Standard Deviation 52.9 fL (36.4-46.3); Red Blood Count 3.31 M/uL (4.20-5.40); White Blood Count 19.97 K/ul (4.8-10.8)
[2023-10-17] MEDS: FLUTICASONE PROPIONATE NA SPR 16 GM BTL SCH (07:54)
[2023-10-17] MEDS: MULTIVITAMIN TAB PO SCH (07:54)
[2023-10-17] MEDS: CALCIUM 600MG + VIT D 400 IU TAB PO SCH ×2 (07:55→20:54)
[2023-10-17] MEDS: predniSONE 20 MG TAB PO SCH (07:55)
[2023-10-17] MEDS: LOSARTAN POTASSIUM 50 MG TAB PO SCH (07:55)
[2023-10-17] MEDS: ATORVASTATIN 20 MG TAB PO SCH (07:55)
[2023-10-17] MEDS: METOPROLOL SUCC 25MG EXT REL TAB PO SCH (07:55)
[2023-10-17] MEDS: ASPIRIN 81 MG ECTAB PO SCH (07:56)
[2023-10-17] MEDS: guaiFENesin 600 MG TABCR PO SCH ×2 (07:56→20:54)
[2023-10-17] MEDS: buPROPion SR 150 MG TABCR PO SCH ×2 (07:56→20:54)
[2023-10-17] MEDS: BENZONATATE 100 MG CAPSULE PO SCH ×3 (08:01→20:54)
[2023-10-17 08:14] LABS: Basophils # (auto) 0.04 K/uL (0.00-0.20); Basophils % (auto) 0.2 %; Immature Granulocytes # (auto) 0.19 K/uL (0.01-0.20); Lymphocytes # (auto) 2.01 K/uL (1.20-3.40); Lymphocytes % (auto) 10.1 %; Neutrophils # (auto) 16.33 K/uL (1.40-6.50); Neutrophils % (auto) 81.7 %; Polychromasia 1+
[2023-10-17] MEDS: SODIUM CHLOR 7% 4 ML NEB NEB SCH ×2 (10:57→19:26)
--- NOTE | 2023-10-17 15:47 | Hospitalist Progress Note ---
Date of Service October 17, 2023 Assessment & Plan (1) Acute respiratory failure with hypoxia: (2) Leukocytosis: (3) Acute exacerbation of chronic obstructive pulmonary disease: (4) Shortness of breath: (5) Hypomagnesemia: Plan: This is a 58 yr old F who has a significant PMH of COPD, HTN, prior hx of tobacco abuse, depression, hx of left lung ca in 2021 s/p chemo, xrt and immunotherapy in 2022 who presented with worsened SOB, hypoxic and evidence of COPD exac: She is being treated for the following: Acute hypoxic respiratory failure COPD Exacerbation admitted to medical Acute exacerbation of COPD, history of lung adenocarcinoma status postchemotherapy, XRT, immunotherapy completed in August 2023 continue nebulizers, Mucinex, Tessalon Perle biofire negative on admission CXR/CT PE negative, hx of prior granulomatous process continue azithromycin and oral prednisone wean oxygen as able Patient reports having history of possible needs for O2, currently sats 88-89% on 2L, she has been hesitant due to her place of work and not wanting to carry oxygen tank around the location. Will need a two-step O2 test Wean O2 as tolerated encourage cessation of smoking marijuana script written for nebulizer continue Symbicort (breo on formulary) Hypomagnesemia replaced HTN chronic, stable continue losartan, metoprolol HLD chronic, stable continue statin DVT ppx: add Lovenox CODE:Full code Dispo: Pt remains hospitalized, not yet medically ready for D/C. Pt was seen and examined in collaboration with Dr. Mireles, please see addendum Admission and Anticipated Discharge Date Admission Date: October 15, 2023 Supervising Physician Co-Signing Physician Notes Patient seen and examined independently. Discussed with above provider. She continues to require supplemental oxygen by nasal cannula. Lung examination revealed bilateral wheeze. Plan to continue DuoNebs, steroid and inhalers. Subjective Patient was seen and examined in room 354-1 in follow up for COPD exac. Continues to feel better each day but still wheezing and SOB with exertion. No change to cough. No F/C, lightheadedness, VO, CP, SOB, N/V, abd pain, dysuria, diarrhea or constipation. Review of Systems Review of Systems: At least ten systems reviewed and negative except as noted in the HPI. Physical Exam Physical Exam: Gen: WD/WN, NAD, sitting in bedside chair, A&Ox3 HEENT: Normocephalic, atraumatic, conjunctivae moist, sclerae anicteric, mucous membranes moist Lung: Clear to Auscultation bilaterally, no wheezes/rales/rhonchi Heart: Regular rate, regular rhythm, no murmurs, rubs, or gallops Abdomen: Soft, NT, ND +BS x 4 Extremities: no edema Skin: Warm, no rash Results & Data Results & Data Vital Signs (Past 12 Hours) Vital Signs Temp Pulse Resp BP Pulse Ox O2 Del Method O2 Flow Rate 10/17/23 14:38 83 18 93 Nasal Cannula 3 10/17/23 14:34 36.6 C 86 16 113/60 92 Nasal Cannula 93 10/17/23 10:57 88 16 94 Nasal Cannula 3 10/17/23 10:20 90 18 93 Nasal Cannula 3 10/17/23 08:00 Nasal Cannula 3 10/17/23 07:38 36.5 C 64 16 112/66 92 Nasal Cannula 4 10/17/23 07:13 64 16 94 Nasal Cannula 3 Laboratory Results Short CBC 10/17/23 Range/Units 05:52 WBC 19.97 H D (4.8-10.8) K/ul Hgb 11.9 L (12.0-16.0) g/dl Hct 36.5 L (37.0-47.0) % Plt Count 312 (130-400) K/uL BMP 10/17/23 05:52 Sodium 136 Potassium 4.5 Chloride 103 Carbon Dioxide 27 BUN 34 H Creatinine 0.80 Glucose 94 Calcium 9.0 Diagnostic Findings Chest X-Ray 10/15/23 14:48 SINGLE VIEW CHEST CLINICAL HISTORY: Dyspnea FINDINGS: An AP, portable, upright chest radiograph is compared to study dated 12/24/2022 and correlated with chest CT dated 08/16/2022. The cardiomediastinal silhouette is top normal for projection noting atherosclerotic calcification of the thoracic aorta. There are scattered calcified granulomas. Emphysema and chronic interstitial thickening is similar to previous. There is bibasilar scarring/atelectasis. No airspace consolidation or large pleural effusion is identified. No pneumothorax is seen. The skeletal structures are osteopenic. The bony thorax is grossly intact. Arthritic change is noted in the shoulders. IMPRESSION: Emphysematous change with no acute cardiopulmonary abnormality identified. ACT 112: Negative or not required by law. Electronically signed by: Israel Ly M.D. 10/15/2023 3:22 PM Chest CTA 10/15/23 14:59 CT ANGIOGRAPHY OF THE CHEST, PULMONARY EMBOLUS PROTOCOL CLINICAL HISTORY: Dyspnea. COMPARISON STUDY: Chest CT August 16, 2022. Chest radiograph performed earlier today. TECHNIQUE: Following IV administration of 115 mL of Optiray, helical axial images of the chest were obtained utilizing the pulmonary embolus protocol. Maximal intensity projections and sagittal and coronal reformats were viewed on an independent 3D workstation. IV contrast was administered without complication. Automated exposure control was utilized for the study. A dose lowering technique was utilized adhering to the principles of ALARA. CT DOSE: 608.07 mGy.cm FINDINGS: No pulmonary emboli are identified. There is no thoracic aortic dissection. Size of the heart is normal. There is no pericardial effusion. Numerous calcified pulmonary nodules are unchanged from earlier exams. Several tiny noncalcified nodules are also unchanged. Central airways are patent. Subpleural opacities reflect atelectasis. There is no consolidation to suggest pneumonia. There is no pneumothorax or pleural effusion. Calcified density adjacent to the spleen is unchanged. A right ureteral stent is partially imaged. IMPRESSION: 1. No pulmonary emboli identified. 2. No consolidation to suggest pneumonia. 3. Evidence for a previous granulomatous process. No significant change in appearance of the chest. ACT 112: Negative or not required by law. Electronically signed by: Stewart Mcclellan M.D. 10/15/2023 4:33 PM
[2023-10-17] MEDS: AZITHROMYCIN 250 MG TAB PO SCH (16:50)
[2023-10-17] MEDS: ENOXAPARIN INJ 40 MG/0.4 ML SYR SQ SCH (20:54)
[2023-10-17] MEDS: SERTRALINE HCL 50 MG TABLET PO SCH (20:54)
[2023-10-17] MEDS: TAMSULOSIN HCL 0.4 MG CAP PO SCH (20:54)
[2023-10-18] MEDS: ALBUT/IPRATROP 3MG/0.5MG NEB 3 ML VIAL NEB SCH ×4 (02:29→15:08)
[2023-10-18 06:35] LABS: Basophils # (auto) 0.02 K/uL (0.00-0.20); Basophils % (auto) 0.1 %; Hematocrit (blood only) 36.3 % (37.0-47.0); Hemoglobin 12.3 g/dl (12.0-16.0); Immature Granulocytes # (auto) 0.06 K/uL (0.01-0.20); Immature Granulocytes % (auto) 0.4 %; Lymphocytes # (auto) 2.89 K/uL (1.20-3.40); Lymphocytes % (auto) 19.4 %; Mean Corpuscular Hemoglobin 36.5 pg (25.0-34.0); Mean Corpuscular Hgb Conc 33.9 g/dL (32.0-36.0); Mean Corpuscular Volume 107.7 fL (80.0-100.0); Mean Platelet Volume 9.9 fL (9.4-12.4); Monocytes % (auto) 7.4 %; Neutrophils % (auto) 72.7 %; Platelet Count 319 K/uL (130-400); RDW Standard Deviation 51.6 fL (36.4-46.3); Red Blood Count 3.37 M/uL (4.20-5.40); White Blood Count 14.87 K/ul (4.8-10.8)
[2023-10-18] MEDS: BUDESONIDE 0.5 MG/2 ML VIAL (PULMICORT) NEB SCH (06:50)
[2023-10-18] MEDS: FORMOTEROL 20 MCG/2 ML VIAL NEB SCH (06:50)
[2023-10-18] MEDS: SODIUM CHLOR 7% 4 ML NEB NEB SCH (06:50)
[2023-10-18 07:00] LABS: Albumin Globulin Ratio 1.3 (0.9-2); Albumin Level 3.7 gm/dl (3.4-5.0); BUN Creatinine Ratio 37.6 (10-20); Bilirubin,Total 0.4 mg/dl (0.2-1.0); Calcium 8.9 mg/dl (8.6-10.3); Creatinine Clr Calc Pharmacy 59.2 ml/min; Est GFR (African American) 86.9 ml/min; Globulin 2.8 gm/dl (2.5-4.0); Potassium 4.4 mmol/L (3.5-5.1); Total Protein 6.5 gm/dl (6.0-8.3)
[2023-10-18] MEDS: ASPIRIN 81 MG ECTAB PO SCH (09:33)
[2023-10-18] MEDS: CALCIUM 600MG + VIT D 400 IU TAB PO SCH (09:34)
[2023-10-18] MEDS: buPROPion SR 150 MG TABCR PO SCH (09:34)
[2023-10-18] MEDS: ATORVASTATIN 20 MG TAB PO SCH (09:34)
[2023-10-18] MEDS: guaiFENesin 600 MG TABCR PO SCH (09:35)
[2023-10-18] MEDS: FLUTICASONE PROPIONATE NA SPR 16 GM BTL SCH (09:35)
[2023-10-18] MEDS: LOSARTAN POTASSIUM 50 MG TAB PO SCH (09:36)
[2023-10-18] MEDS: MULTIVITAMIN TAB PO SCH (09:36)
[2023-10-18] MEDS: predniSONE 20 MG TAB PO SCH (09:36)
[2023-10-18] MEDS: METOPROLOL SUCC 25MG EXT REL TAB PO SCH (09:37)
[2023-10-18] MEDS: BENZONATATE 100 MG CAPSULE PO SCH ×2 (09:40→13:44)
--- NOTE | 2023-10-18 16:37 | Discharge Summary ---
Discharge Summary Date of Service October 18, 2023 Notes For Next Care Provider Acute hypoxic respiratory failure in the setting of COPD exacerbation Medication Changes From Visit Continue prednisone taper : 40mg x 2 days, 20mg x 3 days, 10mg x 3 days Continue Duonebs every 4 hours when awake for the next 3 days and then continue as needed every 4 hours for SOB/wheezing Continue Spiriva as directed Admission HPI Per Admitting Provider This is a 58 yo F with PMHX of left lower lobe non-small cell lung cancer s/p chemotherapy treatment with paclitaxel and carboplatin, XRT, completed a year of immunotherapy in Aug 2023 , COPD, history of tobacco use, quit in December 2021, HTN, chronic back pain, anxiety and depression. She reports that she has had increasing shortness of breath over the past 1 to 2 days and presented to the hospital as she did not quite feel herself and has a dry cough. Pt is currently smoking marijuana at least once daily. She feels that minimal ADLs causes her to feel extremely winded. She denies any fevers, chills or sweats, no abdominal complaints, she is eating and drinking without any difficulty. She denies any issues with lightheadedness or dizziness, no recent falls. Patient admits that she has been told she needed oxygen in the past, at least once over the summer this year. However states that she would feel weird and does not want to wear oxygen at her place of work. 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 Patient has been using albuterol inhaler at home and states that it does help, has not been using a spacing device which she does have available for use at home. She is using Symbicort as well. She has not been on any recent antibiotics, denies any recent sick contacts. Admission Exam Per Admitting Provider General: awake, alert, no apparent distress, white female Head: Normocephalic, atraumatic ENT: PERRL, EOMI, no pharyngeal exudate, mucous membranes moist Chest: + exp wheeze primarily on the left side, +O2 sats 88-89% with conversation at bedside on 2 L via NC Cardiac: Regular rate and rhythm, no murmur, no JVD, normal peripheral pulses, good capillary refill Abdominal: NABS x 4 quadrants, soft, + obese abdomen, nondistended, nontender to palpation, no rebound or guarding Extremities: Normal inspection, no peripheral edema or erythema, calfs nontender to palpation Psych: Normal mood and affect Neuro: AAO x 3, strength intact bilaterally and rated 5/5, no motor deficits, speech is clear, no peripheral sensory deficits Principal Dx & Hospital Course #1 = Principal Diagnosis (1) Acute respiratory failure with hypoxia: (2) Leukocytosis: (3) Acute exacerbation of chronic obstructive pulmonary disease: (4) Shortness of breath: (5) Hypomagnesemia: This is a 58 yr old F who has a significant PMH of COPD, HTN, prior hx of tobacco abuse, depression, hx of left lung ca in 2021 s/p chemo, xrt and immunotherapy in 2022 who presented with worsened SOB, hypoxic and evidence of COPD exacerbation. History of lung adenocarcinoma status postchemotherapy, XRT, immunotherapy completed on August 2023. Bio fire negative on admission, CXR/CT PE negative, history of prior granulomatous process. Completed 3-day course of azithromycin and started on oral prednisone with taper continuing upon discharge. Patient with need for supplemental oxygen during admission with two- step test showing requirement for 2 L nasal cannula O2 at rest and 4 L nasal cannula oxygen with exertion at this time. Continue Symbicort as well as Spiriva on discharge. Patient directed to get referral to pulmonology from primary care follow-up. Courage cessation of smoking marijuana. Continue DuoNebs routinely Discharge Exam Gen: WD/WN, NAD, sitting in bedside chair, A&Ox3 HEENT: Normocephalic, atraumatic, conjunctivae moist, sclerae anicteric, mucous membranes moist Lung: Clear to Auscultation bilaterally, no wheezes/rales/rhonchi Heart: Regular rate, regular rhythm, no murmurs, rubs, or gallops Abdomen: Soft, NT, ND +BS x 4 Extremities: no edema Skin: Warm, no rash Updated Medication List Medication Instructions Recorded Confirmed Type bupropion HCl 150 mg tablet,12 hr 150 mg PO BID 09/04/19 10/15/23 History sustained-release (Wellbutrin SR) calcium carbonate 500 mg-vitamin 1 tab PO BID 09/04/19 10/15/23 History D3 5 mcg (200 unit) tablet (Calcium 500 + D) sertraline 50 mg tablet 50 mg PO HS 09/04/19 10/15/23 History budesonide-formoterol HFA 160 2 puff inhalation BID 09/16/19 10/15/23 History mcg-4.5 mcg/actuation aerosol inhaler (Symbicort) fluticasone propionate 50 1 spray intranasal QAM 11/25/20 10/15/23 History mcg/actuation nasal spray,suspension benzonatate 100 mg capsule 100 mg PO TID PRN Cough 08/16/22 10/15/23 History cyclobenzaprine 10 mg tablet 10 mg PO HS PRN Muscle Spasm 08/16/22 10/15/23 History losartan 50 mg tablet 50 mg PO QAM 08/16/22 10/15/23 History multivitamin 1 tab PO QAM 01/02/23 10/15/23 History Medical Marijuana Card 1 dose PO UD PRN ANXIETY AND PAIN 03/26/23 10/15/23 History aspirin 81 mg capsule 81 mg PO QAM 06/14/23 10/15/23 History atorvastatin 20 mg tablet 20 mg PO QAM 06/14/23 10/15/23 History metoprolol succinate 25 mg 12.5 mg PO QAM 06/14/23 10/15/23 History tablet,extended release 24 hr phenazopyridine 200 mg tablet 200 mg PO Q8H PRN pain #10 tabs 09/30/23 10/15/23 Rx (Pyridium) tamsulosin 0.4 mg capsule 0.4 mg PO HS #30 caps 09/30/23 10/15/23 Rx ipratropium 0.5 mg-albuterol 3 mg 3 ml NEB Q4R #180 mL 10/18/23 Rx (2.5 mg base)/3 mL nebulization soln prednisone 10 mg tablet 10 mg PO DIRECTED #17 tabs 10/18/23 Rx tiotropium bromide 1.25 2 inh inhalation DAILY #4 grams 10/18/23 Rx mcg/actuation mist for inhalation (Spiriva Respimat) Hospital Stay Data Consultations 10/15/23 17:28 ED Decision to Admit Stat Diagnostic Imagining Performed 10/15/23 14:59 CT angio chest PE protocol Stat Pending Results Patient Have Any Pending Studies at Discharge: No Discharge Instructions Given to Patient (Per Discharging Provider) MEDICATION CHANGES: Continue prednisone taper : 40mg x 2 days, 20mg x 3 days, 10mg x 3 days Continue Duonebs every 4 hours when awake for the next 3 days and then continue as needed every 4 hours for SOB/wheezing Continue Spiriva as directed SUMMARY OF TEST RESULTS: You were admitted to hospital with acute respiratory failure in setting of COPD exacerbation. Biofire negative for covid, RSV, Flu A/B, etc on admission CXR/CT PE negative for pneumonia or blood clots You completed course of Azithromycin during admission PENDING TEST RESULTS: None RECOMMENDATIONS FOR FOLLOW-UP: Follow up with PCP as scheduled. Continue 2L NC O2 at rest and 4L NC O2 with exertion as per 2 step test. Please obtain referral to pulmonology from PCP. Encourage cessation of smoking marijuana. OTHER INSTRUCTIONS: Seek medical attention if you have: * temperature above 101 * chest pain or trouble breathing * abdominal pain, nausea, vomiting * diarrhea, dark stools or bloody stools * any unanswered questions or concerns Call 911 if symptoms are severe. Please take good care of yourself. Call if you have any questions or problems. You can reach a [facility] hospitalist on duty at [facility] 24 hours a day by calling [phone]. Total Time Total Time Spent Total Time Spent (In Minutes): 50 Supervising Physician Co-Signing Physician Notes Patient seen and examined independently. Discussed with above provider. Patient was discharged home on Spiriva, prednisone taper and [id number] DuoNeb. Patient to follow-up with PCP and obtain pulmonology referral.
[2023-10-18] MEDS: AZITHROMYCIN 250 MG TAB PO SCH (17:08)
== END 2023-10-18 19:24 | disposition home or self-care (01) | DRG 205 ==
LOC: ED 14:18 → EDINP 17:44 → SUATTDRO 17:44 → 3W 19:34

== ENCOUNTER 2024-03-16 13:27 | Inpatient (IN) ==
[2024-03-16] MEDS: SODIUM CHLORIDE 0.9% 1,000 ML IV SCH ×2 (14:30→19:14)
[2024-03-16] MEDS: MAGNESIUM SULFATE / D5W 1 GM/100 ML BAG IV STA (14:30)
[2024-03-16] MEDS: ALBUT/IPRATROP 3MG/0.5MG NEB 3 ML VIAL NEB STA ×2 (14:30→15:38)
[2024-03-16 14:32] LABS: Hematocrit (blood only) 41.5 % (37.0-47.0); Hemoglobin 13.8 g/dl (12.0-16.0); Mean Corpuscular Hemoglobin 35.9 pg (25.0-34.0); Mean Corpuscular Hgb Conc 33.3 g/dL (32.0-36.0); Mean Corpuscular Volume 108.1 fL (80.0-100.0); Platelet Count 322 K/uL (130-400); RDW Coefficient of Variation 12.7 % (11.5-14.5); RDW Standard Deviation 50.6 fL (36.4-46.3); Red Blood Count 3.84 M/uL (4.20-5.40); White Blood Count 18.03 K/ul (4.8-10.8)
--- NOTE | 2024-03-16 14:40 | Emergency Department Note ---
Impression & Plan Dyspnea, Acute exacerbation of chronic obstructive pulmonary disease (COPD), Hypoxia, Upper respiratory infection, viral, Acute on chronic hypoxic respiratory failure, Elevated troponin ED Provider Note ED Provider Note NAME: AMIE NOGUEIRA AGE:58 SEX: Female : 1965 ARRIVES VIA: EMS INFORMANT: Patient ED PROVIDER(s): Deborah See DO CHIEF COMPLAINT: Increased shortness of breath HPI: This is a 58-year-old female who presents emergency department due to increased shortness of breath. Patient with a history of COPD. She states she did feel her breathing was worsening for several days ago and started a steroid taper. She has been using her MDIs and nebulizers at home. She does wear oxygen via nasal cannula chronically, however was turning this up due to still feeling short of breath. She has had some chest tightness which she feels is from her difficulty breathing. She states she does have seasonal allergies this time year but is not currently taking anything. No known sick contacts. She denies fevers, chills, nasal congestion, rhinorrhea. She states her cough has been more productive recently, no hemoptysis, yellow sputum noted. No abdominal pain, no change in urinary habits or bowel movements. She denies any recent leg swelling. She was given 2 nebulizer treatments via EMS and route. She was noted on arrival to have an oxygen saturation in the 70s on her usual 2 L via nasal cannula. This was titrated up to 4 L by nursing staff with improvement in her oxygenation. PAST MEDICAL HISTORY:See Below PAST SURGICAL HISTORY:See Below FAMILY HISTORY:See Below SOCIAL HISTORY:See Below HOME MEDICATIONS:See Below ALLERGIES:See Below VITALS:See Below PHYSICAL EXAMINATION: GENERAL: alert, well appearing, well nourished, no distress, non-toxic EYE EXAM: normal conjunctiva, PERRL and EOM's grossly intact OROPHARYNX: no exudate, no erythema, lips, buccal mucosa, and tongue normal and mucous membranes are moist NECK: supple, no nuchal rigidity, no adenopathy, non-tender LUNGS: Diminished bilaterally to auscultation. Normal chest wall mechanics, no w/r/r HEART: no murmurs, S1 normal and S2 normal, tachycardia ABDOMEN: abdomen soft, non-tender, normo-active bowel sounds, no masses, no rebound or guarding. BACK: Back is symmetrical on inspection and there is no deformity, no midline tenderness, no CVA tenderness. SKIN: no rashes, petechiae, orbruising UPPER EXTREMITIES: upper extremities are grossly normal. FROM, nml pulses b/l. LOWER EXTREMITIES: No pitting edema. FROM, nml pulses b/l. NEURO EXAM: Normal sensorium, cranial nerves II-XII grossly intact, normal speech, no facial droop,nogross weakness of arms, no gross weakness of legs. Gross sensation intact. No ataxia. Vital Signs: reviewed and remarkable Differential Diagnosis: pneumonia, bronchitis, COPD/Asthma exacerbation, pneumothorax, pulmonary embolism, congestive heart failure, acute coronary syndrome, as well as others were considered MEDICAL DECISION MAKING: This is a 58-year-old female who presents emergency department due to worsening shortness of breath. Patient with known COPD and on home oxygen chronically. Patient with persistently worsening symptoms at home requiring her to titrate up her oxygen despite initiation of outpatient steroids. Patient noted to be hypoxic here while on oxygen with increased work of breathing, tachypnea, tachycardia, and diaphoresis. Patient oxygen titrated up with improvement. She had been given 2 nebulizer treatments by EMS, and was given a DuoNeb here on arrival. IV fluids and IV magnesium were added. She was given IV Solu-Medrol and started on oral doxycycline. Patient received 2 additional nebulizer treatments here with eventual slow improvement in her work of breathing and tachypnea. Leukocytosis noted initially however unclear if this is related to evolving infection versus the recent addition of steroids. She was noted to have an elevated troponin, however I suspect this is secondary to demand from her tachycardia and hypoxia. I do not suspect primary cardiac etiology. Due to need for continued respiratory support and treatment, case discussed with hospitalist team for additional evaluation and management. Nasal swab for viral panel ultimately revealed parainfluenza virus. Consultation(s): 1602: Discussed with mary Casey hospitalist team, for additional evaluation and mgmt. ER Treatment Provided: See below Diagnostics Interpreted By Me: -ECG: Sinus tachycardia 127, normal axis, normal intervals, nonspecific ST/T wave changes -Cardiac Monitoring: An order was placed for continuous cardiac monitoring. The monitor shows a rate of 98 with normal sinus rhythm. -Laboratory studies: As stated above and show below. -Imaging studies: X-ray Chest: A single view study of the chest was reviewed and was negative for cardiomegaly, focal infiltrate, effusion, pulmonary edema, or wide mediastinum. Triage Nursing Note Reviewed Prior/Outside Records Reviewed Critical care: Critical care of 44 min performed to assess and manage high likelihood of life- threatening acute hypoxic respiratory failure, involving labs and imaging performed with assessment to evaluate dyspnea and COPD exacerbation diagnosis with frequent reassessment. This time includes bedside time, treatment discussions with patient/family/consultants, documentation time and excludes procedure time. Past Med/Surg History Problem List (Updated 03/18/24 @ 02:50 by Deborah See DO) Upper respiratory infection, viral (Acute) Hypoxia (Acute) Dyspnea (Acute) Acute on chronic hypoxic respiratory failure (Acute) Parainfluenza infection SIRS (systemic inflammatory response syndrome) Elevated troponin (Acute) Acute exacerbation of chronic obstructive pulmonary disease (COPD) (Acute) Acute respiratory failure with hypoxia (Acute) Medical History (Updated 03/18/24 @ 02:50 by Deborah See DO) CAD (coronary artery disease) On home oxygen therapy 2L at rest, 4L w/exertion Hx of respiratory syncytial virus infection 2021; all sx resolved Abnormal echocardiogram stress echo 05/[address] Ellsworth was positive for inducible ischemia; cardiac cath was postponed due to urology procedures per 06/2023 cardiology note History of COVID-19 HX X2 : Fall 2021 (most recent) - mild symptoms, resolved Non-small cell carcinoma of lung DX 2021/HX CHEMO AND RADIATION followed by monthyl immunotherapy; has now finished all treatments Diverticular disease Kidney stone Seasonal allergies Sleep apnea cannot tolerate CPAP Depression GERD (gastroesophageal reflux disease) occasional COPD (chronic obstructive pulmonary disease) stable HTN (hypertension) follows w/ Dr Ellsworth; stable on medication Surgical History S/P cystoscopy with ureteral stent placement multiple; most recent: 06/24/23: MAC without issue History of esophagogastroduodenoscopy (EGD) Nausea and vomiting after administration of anesthetic agent no issues with recent [facility] surgeries History of colonoscopy History of lithotripsy x3; S/P Cystoscopy, right ureteroscopy, RPG, stent, laser lithotripsy (11/02/19): LMA#4 at [facility] History of total hysterectomy History of tubal ligation History of cholecystectomy History of wisdom tooth extraction History of lumbar fusion L4-5 Family History Daughter Family history of diabetes mellitus (DM) Uncle Family history of diabetes mellitus (DM) Grandfather FHx: colon cancer Grandfather (Paternal) FHx: colon cancer Mother Cancer Grandmother (Maternal) Heart disease Other No family history of adverse response to anesthesia Social History Smoking Status: Former smoker Tobacco Type: Cigarettes Cigarettes Per Day: 20; Second Hand Exposure: No; Do You Dip or Chew Tobacco: No; Hx Alcohol Use: Yes Alcohol type: beer Hx Substance Use: Yes Last Used Substance: Days (ago) Last Used Substance Other:: uses daily-gummies more than vape/inh. Substance Use Type Other:: has a medical marijuana card Preferred Language: Burkinan Communication Ability: Effective Visual Impairment: No Limitations [employer] Required: No Beliefs That Will Affect Care: None marital status: Single Current Living Situation: Family Current Living Situation Comment: With daughter and sister How many Children do You have: 2 Feels Safe at Home: Yes Assistive Devices: CPAP, Nebulizer and Oxygen - at Night Allergies Allergies Allergy/AdvReac Type Severity Reaction Status Date / Time Sulfa (Sulfonamide Allergy Intermediate Hives, Verified 03/16/24 16:18 Antibiotics) possible dyspnea Penicillins Allergy Mild Hives Verified 03/16/24 16:18 Home Meds Home Medications Medication Instructions Recorded Confirmed bupropion HCl 150 mg tablet,12 hr 150 mg PO BID 09/04/19 03/16/24 sustained-release (Wellbutrin SR) calcium carbonate 500 mg-vitamin 1 tab PO BID 09/04/19 03/16/24 D3 5 mcg (200 unit) tablet (Calcium 500 + D) sertraline 50 mg tablet 50 mg PO HS 09/04/19 03/16/24 budesonide-formoterol HFA 160 2 puff inhalation BID 09/16/19 03/16/24 mcg-4.5 mcg/actuation aerosol inhaler (Symbicort) benzonatate 100 mg capsule 100 mg PO TID PRN Cough 08/16/22 03/16/24 losartan 50 mg tablet 50 mg PO QAM 08/16/22 03/16/24 multivitamin 1 tab PO QAM 01/02/23 03/16/24 Medical Marijuana Card 1 dose PO UD PRN ANXIETY AND PAIN 03/26/23 03/16/24 aspirin 81 mg capsule 81 mg PO QAM 06/14/23 03/16/24 atorvastatin 20 mg tablet 20 mg PO QAM 06/14/23 03/16/24 metoprolol succinate 25 mg 12.5 mg PO QAM 06/14/23 03/16/24 tablet,extended release 24 hr albuterol sulfate 90 mcg/actuation 2 inh inhalation Q4H PRN Wheezing 03/16/24 03/16/24 aerosol inhaler isosorbide mononitrate 30 mg 15 mg PO QAM 03/16/24 03/16/24 tablet,extended release 24 hr prednisone 10 mg tablet See Rx Instructions .Route .COMPLEX 03/16/24 03/16/24 tiotropium bromide 2.5 2 puff inhalation QA 03/16/24 03/16/24 mcg/actuation mist for inhalation (Spiriva Respimat) Previous Rx's Medication Instructions Recorded phenazopyridine 200 mg tablet 200 mg PO Q8H PRN pain #10 tabs 01/02/24 (Pyridium) Results & Data (ED) Vital Signs Vital Signs - 24 hr 03/16/24 13:42 03/16/24 13:42 03/16/24 13:57 Temperature 36.9 C Temperature Source Oral Pulse Rate 145 H 49 L Pulse Rate [Apical] Pulse Rate from SpO2 Sensor 49 L Pulse Rhythm Regular Pulse Strength Normal Respiratory Rate 34 H 18 Respiratory Effort / Characteristics Non-Labored Respiratory Depth Normal Blood Pressure 178/106 H Blood Pressure [Right Arm] Blood Pressure Mean 130 Blood Pressure Mean [Right Arm] Pulse Oximetry 75 L 75 L 95 Oxygen Delivery Method Nasal Cannula Nasal Cannula Oxygen Flow Rate 2 2 Sepsis Recent Fever Within 48 Hours No Sepsis New/Unexplained Change in Mental Status No Sepsis Action Taken by Nursing No Action Required Oxygen Flow Rate - Titration 4 Pulse Oximetry Post Tiitration 91 03/16/24 14:00 03/16/24 14:24 03/16/24 14:30 Temperature Temperature Source Pulse Rate 45 L 117 H 116 H Pulse Rate [Apical] Pulse Rate from SpO2 Sensor 47 L 117 H 116 H Pulse Rhythm Pulse Strength Respiratory Rate 8 L 26 H 27 H Respiratory Effort / Characteristics Respiratory Depth Blood Pressure Blood Pressure [Right Arm] Blood Pressure Mean Blood Pressure Mean [Right Arm] Pulse Oximetry 96 89 L 90 Oxygen Delivery Method Oxygen Flow Rate Sepsis Recent Fever Within 48 Hours Sepsis New/Unexplained Change in Mental Status Sepsis Action Taken by Nursing Oxygen Flow Rate - Titration Pulse Oximetry Post Tiitration 03/16/24 14:36 03/16/24 14:37 03/16/24 14:39 Temperature Temperature Source Pulse Rate 116 H 123 H Pulse Rate [Apical] Pulse Rate from SpO2 Sensor 116 H 119 H Pulse Rhythm Pulse Strength Respiratory Rate 28 H 27 H Respiratory Effort / Characteristics Respiratory Depth Blood Pressure 142/82 H Blood Pressure [Right Arm] Blood Pressure Mean 103 Blood Pressure Mean [Right Arm] Pulse Oximetry 87 L 79 L Oxygen Delivery Method Oxygen Flow Rate Sepsis Recent Fever Within 48 Hours Sepsis New/Unexplained Change in Mental Status Sepsis Action Taken by Nursing Oxygen Flow Rate - Titration Pulse Oximetry Post Tiitration 03/16/24 14:41 03/16/24 14:42 03/16/24 14:52 Temperature Temperature Source Pulse Rate 114 H Pulse Rate [Apical] 100 H Pulse Rate from SpO2 Sensor 114 H Pulse Rhythm Pulse Strength Respiratory Rate 28 H 20 Respiratory Effort / Characteristics Non-Labored Respiratory Depth Normal Blood Pressure 145/107 H Blood Pressure [Right Arm] 145/107 H Blood Pressure Mean 127 Blood Pressure Mean [Right Arm] 119 Pulse Oximetry 91 90 Oxygen Delivery Method Nasal Cannula Oxygen Flow Rate 4 Sepsis Recent Fever Within 48 Hours Sepsis New/Unexplained Change in Mental Status Sepsis Action Taken by Nursing Oxygen Flow Rate - Titration Pulse Oximetry Post Tiitration 03/16/24 14:54 03/16/24 15:06 03/16/24 15:12 Temperature Temperature Source Pulse Rate 107 H 96 H 105 H Pulse Rate [Apical] Pulse Rate from SpO2 Sensor Pulse Rhythm Pulse Strength Respiratory Rate 24 24 29 H Respiratory Effort / Characteristics Respiratory Depth Blood Pressure Blood Pressure [Right Arm] Blood Pressure Mean Blood Pressure Mean [Right Arm] Pulse Oximetry Oxygen Delivery Method Oxygen Flow Rate Sepsis Recent Fever Within 48 Hours Sepsis New/Unexplained Change in Mental Status Sepsis Action Taken by Nursing Oxygen Flow Rate - Titration Pulse Oximetry Post Tiitration 03/16/24 15:36 03/16/24 15:45 Temperature Temperature Source Pulse Rate 96 H 95 H Pulse Rate [Apical] Pulse Rate from SpO2 Sensor 97 H Pulse Rhythm Pulse Strength Respiratory Rate 24 28 H Respiratory Effort / Characteristics Respiratory Depth Blood Pressure Blood Pressure [Right Arm] Blood Pressure Mean Blood Pressure Mean [Right Arm] Pulse Oximetry 95 Oxygen Delivery Method Oxygen Flow Rate Sepsis Recent Fever Within 48 Hours Sepsis New/Unexplained Change in Mental Status Sepsis Action Taken by Nursing Oxygen Flow Rate - Titration Pulse Oximetry Post Tiitration Laboratory Data 03/17/24 06:54 03/17/24 06:54 Lab Results 03/16/24 03/16/24 Range/Units 13:54 14:40 WBC 18.03 H (4.8-10.8) K/ul RBC 3.84 L (4.20-5.40) M/uL Hgb 13.8 (12.0-16.0) g/dl Hct 41.5 (37.0-47.0) % MCV 108.1 H (80.0-100.0) fL MCH 35.9 H (25.0-34.0) pg MCHC 33.3 (32.0-36.0) g/dL RDW Std Deviation 50.6 H (36.4-46.3) fL RDW Coeff of Shai 12.7 (11.5-14.5) % Plt Count 322 (130-400) K/uL MPV 10.0 (9.4-12.4) fL Immature Gran % (Auto) 0.6 % Neut % (Auto) 90.4 % Lymph % (Auto) 4.5 % [place] % (Auto) 4.3 % Eos % (Auto) 0.0 % Baso % (Auto) 0.2 % Neut # (Auto) 16.31 H (1.40-6.50) K/uL Lymph # (Auto) 0.81 L (1.20-3.40) K/uL [place] # (Auto) 0.78 H (0.11-0.59) K/uL Eos # (Auto) 0.00 (0.00-0.50) K/uL Baso # (Auto) 0.03 (0.00-0.20) K/uL Immature Gran # (Auto) 0.10 (0.01-0.20) K/uL PT 10.4 (9.0-12.0) Seconds INR 1.0 (0.9-1.1) Sodium 137 (136-145) mmol/L Potassium 4.5 (3.5-5.1) mmol/L Chloride 100 (98-107) mmol/L Carbon Dioxide 30 (21-32) mmol/L Anion Gap 7 (3-11) BUN 22 (6-23) mg/dl Creatinine 0.84 (0.6-1.2) mg/dl Est Cr Clr Drug Dosing 59.3 ml/min Est GFR ( Amer) 88.2 ml/min Est GFR (Non-Af Amer) 76.1 ml/min BUN/Creatinine Ratio 26.2 H (10-20) Glucose 181 H (70-99(Fasting)) mg/dl Calcium 9.4 (8.6-10.3) mg/dl Magnesium 1.7 (1.7-2.4) mg/dl Total Bilirubin 0.4 (0.2-1.0) mg/dl AST 33 (13-39) U/L ALT 26 (7-52) U/L Alkaline Phosphatase 81 (34-104) U/L Troponin I High Sens 46.2 H (0-14) pg/ml B-Natriuretic Peptide 59 (0-100) pg/ml Total Protein 7.8 (6.0-8.3) gm/dl Albumin 4.4 (3.4-5.0) gm/dl Globulin 3.4 (2.5-4.0) gm/dl Albumin/Globulin Ratio 1.3 (0.9-2) Lipase 18 (11-82) U/L Procalcitonin < 0.02 (0-0.5) ng/ml TSH 1.145 (0.300-4.500) uIu/ml Adenovirus (PCR) Not Detected (NotDetected) B. pertussis DNA (PCR) Not Detected (NotDetected) B.parapertussis DNA PCR Not Detected (NotDetected) C. pneumoniae DNA (PCR) Not Detected (NotDetected) Coronavirus OC43 (PCR) Not Detected (NotDetected) Coronavirus HKU1 (PCR) Not Detected (NotDetected) Coronavirus 229E (PCR) Not Detected (NotDetected) SARS-CoV-2 (PCR) Not Detected (NotDetected) Coronavirus NL63 (PCR) Not Detected (NotDetected) Human Metapneumovir PCR Not Detected (NotDetected) Influenza Type A (PCR) Not Detected (NotDetected) Influenza Type B (PCR) Not Detected (NotDetected) M. pneumoniae (PCR) Not Detected (NotDetected) Parainfluenza 1 (PCR) Not Detected (NotDetected) Parainfluenza 2 (PCR) Not Detected (NotDetected) Parainfluenza 3 (PCR) DETECTED A (NotDetected) Parainfluenza 4 (PCR) Not Detected (NotDetected) RSV (PCR) Not Detected (NotDetected) Entero/Rhino (PCR) Not Detected (NotDetected) Administered Medications Albuterol (Albut/Ipratrop 3mg/0.5mg Neb 3 Ml Vial) 3 ml NEB Q4R [facility]; Protocol Stop: 04/15/24 18:59 Last Admin: 03/17/24 22:46 Dose: 3 ml Documented By: Admin: 03/17/24 19:12 Dose: 3 ml Documented By: Admin: 03/17/24 15:30 Dose: 3 ml Documented By: Admin: 03/17/24 11:12 Dose: 3 ml Documented By: Admin: 03/17/24 07:26 Dose: 3 ml Documented By: Admin: 03/17/24 02:17 Dose: 3 ml Documented By: Admin: 03/16/24 23:55 Dose: 3 ml Documented By: Admin: 03/16/24 19:15 Dose: 3 ml Documented By: JERSON Aspirin (Aspirin 81 Mg Ectab) 81 mg PO [facility] Stop: 04/16/24 08:59 Last Admin: 03/17/24 08:01 Dose: 81 mg Documented By: HERMINIO Atorvastatin Calcium (Atorvastatin 20 Mg Tab) 20 mg PO [facility] Stop: 04/16/24 08:59 Last Admin: 03/17/24 08:01 Dose: 20 mg Documented By: HERMINIO Bupropion HCl (Bupropion Sr 150 Mg Tabcr) 150 mg PO BID [facility] Stop: 04/15/24 20:59 Last Admin: 03/17/24 20:25 Dose: 150 mg Documented By: Admin: 03/17/24 08:04 Dose: 150 mg Documented By: Admin: 03/16/24 20:23 Dose: 150 mg Documented By: JERSON Doxycycline Hyclate (Doxycycline Hyclate 100 Mg Cap) 100 mg PO BID [facility] Stop: 03/23/24 20:59 Last Admin: 03/17/24 20:25 Dose: 100 mg Documented By: Admin: 03/17/24 08:05 Dose: 100 mg Documented By: Admin: 03/16/24 20:22 Dose: 100 mg Documented By: JERSON Enoxaparin Sodium (Enoxaparin Inj 40 Mg/0.4 Ml Syr) 40 mg SQ HS [facility] Stop: 04/15/24 19:29 Last Admin: 03/17/24 20:25 Dose: 40 mg Documented By: Admin: 03/16/24 20:23 Dose: 40 mg Documented By: JERSON Fluticasone/Vilanterol (Fluticasone/Vilanterol 100/25mcg 14 Puffs/Inhaler) 1 puffs INH DAILY [facility]; Protocol Stop: 04/16/24 08:59 Last Admin: 03/17/24 08:04 Dose: 1 puffs Documented By: HERMINIO Guaifenesin (Guaifenesin 600 Mg Tabcr) 1,200 mg PO Q12 [facility] Stop: 04/15/24 20:59 Last Admin: 03/17/24 20:25 Dose: 1,200 mg Documented By: Admin: 03/17/24 08:04 Dose: 1,200 mg Documented By: Admin: 03/16/24 20:22 Dose: 1,200 mg Documented By: JERSON Methylprednisolone 40 mg/ (Syringe) 0.64 mls @ 1.5 mls/min IV Q8H [facility] Stop: 04/16/24 00:59 Last Admin: 03/18/24 00:01 Dose: 1.5 mls/min Documented By: Admin: 03/17/24 16:25 Dose: 1.5 mls/min Documented By: Admin: 03/17/24 08:03 Dose: 1.5 mls/min Documented By: Admin: 03/17/24 00:42 Dose: 1.5 mls/min Documented By: DOYLE Ceftriaxone Sodium (Rocephin) 1,000 mg in 50 mls @ 100 mls/hr IV Q24H [facility] Stop: 03/23/24 19:29 Last Infusion: 03/17/24 21:00 Dose: Infused Documented By: Admin: 03/17/24 20:25 Dose: 100 mls/hr Documented By: Infusion: 03/16/24 19:52 Dose: Infused Documented By: Admin: 03/16/24 19:14 Dose: 100 mls/hr Documented By: JERSON Isosorbide Mononitrate (Isosorbide [place] Extended Rel 30 Mg Tabcr) 15 mg PO [facility] Stop: 04/16/24 08:59 Last Admin: 03/17/24 08:01 Dose: 15 mg Documented By: HERMINIO Losartan Potassium (Losartan Potassium 50 Mg Tab) 50 mg PO [facility] Stop: 04/16/24 08:59 Last Admin: 03/17/24 08:01 Dose: 50 mg Documented By: HERMINIO Metoprolol Succinate (Metoprolol Succ 25mg Ext Rel Tab) 12.5 mg PO [facility] Stop: 04/16/24 08:59 Last Admin: 03/17/24 08:02 Dose: 12.5 mg Documented By: HERMINIO Sertraline HCl (Sertraline Hcl 50 Mg Tablet) 50 mg PO [facility] Stop: 04/15/24 20:59 Last Admin: 03/17/24 20:25 Dose: 50 mg Documented By: Admin: 03/16/24 20:23 Dose: 50 mg Documented By: JERSON Sodium Zirconium Cyclosilicate (Sodium Zirconium Cyclosilicate 10 Gm Packet) 10 gm PO DAILY@1100 [facility] Stop: 03/19/24 10:59 Last Admin: 03/17/24 10:27 Dose: 10 gm Documented By: HERMINIO Discontinued Medications Albuterol (Albut/Ipratrop 3mg/0.5mg Neb 3 Ml Vial) 3 ml NEB NOW STA; Protocol Stop: 03/16/24 14:16 Last Admin: 03/16/24 14:30 Dose: 3 ml Documented By: JAVIER Albuterol (Albut/Ipratrop 3mg/0.5mg Neb 3 Ml Vial) 3 ml NEB NOW STA; Protocol Stop: 03/16/24 15:22 Last Admin: 03/16/24 15:38 Dose: 3 ml Documented By: JERSON Cetirizine HCl (Cetirizine Hcl 10 Mg Tablet) 10 mg PO NOW ONE Stop: 03/16/24 14:41 Last Admin: 03/16/24 14:51 Dose: 10 mg Documented By: ES Doxycycline Hyclate (Doxycycline Hyclate 100 Mg Cap) 100 mg PO NOW STA Stop: 03/16/24 14:37 Last Admin: 03/16/24 14:45 Dose: 100 mg Documented By: ES Sodium Chloride (Nss) 1,000 mls @ 125 mls/hr IV .Q8H [facility] Stop: 04/15/24 14:14 Last Infusion: 03/16/24 19:06 Dose: Infused Documented By: Admin: 03/16/24 14:30 Dose: 125 mls/hr Documented By: ES Magnesium Sulfate/Dextrose (Magnesium Sulfate / D5w) 1 gm in 100 mls @ 100 mls/hr IV NOW STA Stop: 03/16/24 15:15 Last Infusion: 03/16/24 15:20 Dose: Infused Documented By: Admin: 03/16/24 14:30 Dose: 100 mls/hr Documented By: ES Sodium Chloride (Nss) 1,000 mls @ 80 mls/hr IV .[id number] [facility] Stop: 03/17/24 07:14 Last Infusion: 03/17/24 07:04 Dose: Infused Documented By: Admin: 03/16/24 19:14 Dose: 80 mls/hr Documented By: ARPITG Methylprednisolone (Methylprednisolone 125 Mg/2 Ml Vial) 60 mg IV NOW STA Stop: 03/16/24 16:06 Last Admin: 03/16/24 16:53 Dose: 60 mg Documented By: MMG Imaging Data Radiologist's Impression: Chest X-Ray 03/16/24 14:16 XR chest 1V portable CLINICAL HISTORY: sob, copd TECHNIQUE: Single frontal radiograph of the chest was obtained. Comparison: Comparison is made to chest radiograph 10/15/2023 FINDINGS: No lines and tubes are seen. Calcified aortic knob is seen. Mild emphysematous changes without acute abnormality. No evidence of pleural effusion or pneumothorax. IMPRESSION: Mild emphysematous changes. ACT 112: Negative or not required by law. Electronically signed by: Paul Gonzales M.D. 03/16/2024 2:43 PM Discharge Plan Visit Data Chief Complaint: Respiratory Problems Stated Complaint: RESPIRATORY DIFFICULTY ED Provider: Deborah See Discharge Problem: Dyspnea, Acute exacerbation of chronic obstructive pulmonary disease (COPD), Hypoxia, Upper respiratory infection, viral, Acute on chronic hypoxic respiratory failure, Elevated troponin Patient Disposition: Admitted As Inpatient Discharge Instructions Interventions: ED Discharge Assessment Last Done: 03/16/24 18:45
[2024-03-16] MEDS: DOXYCYCLINE HYCLATE 100 MG CAP PO STA (14:45)
--- NOTE | 2024-03-16 14:45 | XRay Report ---
XR chest 1V portable CLINICAL HISTORY: sob, copd TECHNIQUE: Single frontal radiograph of the chest was obtained. Comparison: Comparison is made to chest radiograph 10/15/2023 FINDINGS: No lines and tubes are seen. Calcified aortic knob is seen. Mild emphysematous changes without acute abnormality. No evidence of pleural effusion or pneumothorax. IMPRESSION: Mild emphysematous changes. ACT 112: Negative or not required by law. Electronically signed by: Paul Gonzales M.D. 03/16/2024 2:43 PM
[2024-03-16 14:49] LABS: Albumin Globulin Ratio 1.3 (0.9-2); Albumin Level 4.4 gm/dl (3.4-5.0); BUN Creatinine Ratio 26.2 (10-20); Bilirubin,Total 0.4 mg/dl (0.2-1.0); Calcium 9.4 mg/dl (8.6-10.3); Creatinine Clr Calc Pharmacy 59.3 ml/min; Est GFR (African American) 88.2 ml/min; Est GFR (Non-African American) 76.1 ml/min; Globulin 3.4 gm/dl (2.5-4.0); Magnesium 1.7 mg/dl (1.7-2.4); Potassium 4.5 mmol/L (3.5-5.1); Total Protein 7.8 gm/dl (6.0-8.3)
[2024-03-16] MEDS: CETIRIZINE HCL 10 MG TABLET PO ONE (14:51)
[2024-03-16 14:53] LABS: Prothrombin Time 10.4 Seconds (9.0-12.0)
[2024-03-16 14:54] LABS: Basophils # (auto) 0.03 K/uL (0.00-0.20); Basophils % (auto) 0.2 %; Immature Granulocytes % (auto) 0.6 %; Lymphocytes # (auto) 0.81 K/uL (1.20-3.40); Lymphocytes % (auto) 4.5 %; Monocytes # (auto) 0.78 K/uL (0.11-0.59); Monocytes % (auto) 4.3 %; Neutrophils # (auto) 16.31 K/uL (1.40-6.50); Neutrophils % (auto) 90.4 %; Troponin I High Sensitivity 46.2 pg/ml (0-14)
[2024-03-16 15:03] LABS: Thyroid Stimulating Hormone 1.145 uIu/ml (0.300-4.500)
[2024-03-16 15:40] LABS: Adenovirus PCR Not Detected (NotDetected); Bordetella parapertussis PCR Not Detected (NotDetected); Bordetella pertussis PCR Not Detected (NotDetected); Chlamydia pneumoniae PCR Not Detected (NotDetected); Coronavirus 229E PCR Not Detected (NotDetected); Coronavirus CoV-2 (COVID19)PCR Not Detected (NotDetected); Coronavirus HKU1 PCR Not Detected (NotDetected); Coronavirus NL63 PCR Not Detected (NotDetected); Coronavirus OC43PCR Not Detected (NotDetected); Human Metapneumovirus PCR Not Detected (NotDetected); Influenza A PCR Not Detected (NotDetected); Influenza B PCR Not Detected (NotDetected); Mycoplasma pneumoniae PCR Not Detected (NotDetected); Parainfluenza Virus 1 PCR Not Detected (NotDetected); Parainfluenza Virus 2 PCR Not Detected (NotDetected); Parainfluenza Virus 3 PCR DETECTED (NotDetected); Parainfluenza Virus 4 PCR Not Detected (NotDetected); Respiratory Syncytial VirusPCR Not Detected (NotDetected); Rhinovirus/Enterovirus PCR Not Detected (NotDetected)
[2024-03-16] MEDS: methylPREDNISolone 125 MG/2 ML VIAL IV STA (16:53)
--- NOTE | 2024-03-16 17:09 | History & Physical Report ---
Date of Service March 16, 2024 Assessment & Plan (1) Acute on chronic hypoxic respiratory failure: (2) Acute exacerbation of chronic obstructive pulmonary disease (COPD): (3) SIRS (systemic inflammatory response syndrome): (4) Parainfluenza infection: Plan: Admit to [facility] with telemetry Patient presenting from home with reports of worsening shortness of breath and cough x 4 days despite prednisone taper and albuterol inhaler In the ED, patient saturating 75% on 2 L of oxygen, currently requiring 4 L of oxygen via nasal cannula to maintain saturations Typically wears 2 L of oxygen at bedtime only Patient meets SIRS criteria with WBC 18 K, tachycardia, tachypnea. BP stable. Noted normal procalcitonin and lactate. Bio fire + Parainfluenza virus No infiltrate noted on CXR S/p solumedrol 60mg IV in the ED, will continue with solumedrol 40mg q8h S/p empiric doxycycline in the ED, will continue with and add IV ceftriaxone Sputum culture Pulmonary toilet with Mucinex, nebs, flutter valve, incentive spirometer Consider CT chest if not improving (5) Elevated troponin: Plan: HS troponin 46.2, no reports of chest pain, EKG without acute ST changes Likely demand ischemia in the setting of acute illness and hypoxia Continue to trend troponin, consider echo if significant elevation (6) CAD (coronary artery disease): (7) HTN (hypertension): Plan: Hx of abnormal stress test, medical management recommended Continue ASA, statin, beta-shanika, nitrate BP controlled (8) Non-small cell carcinoma of lung: Plan: S/p chemo, radiation, and immunotherapy -- all treatments completed Follows with [facility] pulmonary DVT PROPHYLAXIS SQ Lovenox Patient seen in collaboration with Dr. Martinez. I spent a total of 75 minutes coordinating, documenting, and providing care for this patient excluding time spent in the performance of separately billed services. This included personally reviewing all current laboratories and imaging studies, medication reconciliation, outpatient chart review, and discussion with specialists. History of Present Illness Chief Complaint: Shortness of breath, cough Primary Care Provider: Ivy Holden PA-C 58-year-old female with PMH oxygen dependent COPD on 2 L of oxygen at night, HTN, CAD manage medically, history of lung cancer s/p chemotherapy and radiation, and other problems listed below who presents to the ED for evaluation of shortness of breath and cough. Patient reports that 4 days ago she developed shortness of breath with minimal exertion and cough productive for yellow sputum. The following day her letterpress setter prescribed her a prednisone taper and refilled her albuterol inhaler as she was out. Patient reports minimal improvement in her symptoms and therefore presented to the ED today. Typically only wears 2 L of oxygen at night however has been wearing continuously over the past few days increasing up to 4 L. Patient denies any sick contacts or recent travel. No fevers or chills. Reports she had had a poor appetite however that is now improved. Reports chest tightness however no chest pain or palpitations. Denies lightheadedness, dizziness, diaphoresis, syncopal events. No abdominal pain, nausea, vomiting, diarrhea. Denies urinary symptoms. In the ED, patient was hypoxic at 75% on 2 L, Tachycardic, tachypneic. Labs show WBC 18 K, noted normal lactate and procalcitonin. CXR unremarkable. Bio fire positive for parainfluenza. Patient currently requiring 4 L of oxygen via nasal cannula to maintain saturations. She was given nebulizer treatment, cetirizine, doxycycline, IV magnesium, IV Solu-Medrol, IVF. Allergies Allergy/AdvReac Type Severity Reaction Status Date / Time Sulfa (Sulfonamide Allergy Intermediate Hives, Verified 03/16/24 16:18 Antibiotics) possible dyspnea Penicillins Allergy Mild Hives Verified 03/16/24 16:18 Home Medications Medication Instructions Recorded Confirmed Type bupropion HCl 150 mg tablet,12 hr 150 mg PO BID 09/04/19 03/16/24 History sustained-release (Wellbutrin SR) calcium carbonate 500 mg-vitamin 1 tab PO BID 09/04/19 03/16/24 History D3 5 mcg (200 unit) tablet (Calcium 500 + D) sertraline 50 mg tablet 50 mg PO HS 09/04/19 03/16/24 History budesonide-formoterol HFA 160 2 puff inhalation BID 09/16/19 03/16/24 History mcg-4.5 mcg/actuation aerosol inhaler (Symbicort) benzonatate 100 mg capsule 100 mg PO TID PRN Cough 08/16/22 03/16/24 History losartan 50 mg tablet 50 mg PO QAM 08/16/22 03/16/24 History multivitamin 1 tab PO QAM 01/02/23 03/16/24 History Medical Marijuana Card 1 dose PO UD PRN ANXIETY AND PAIN 03/26/23 03/16/24 History aspirin 81 mg capsule 81 mg PO QAM 06/14/23 03/16/24 History atorvastatin 20 mg tablet 20 mg PO QAM 06/14/23 03/16/24 History metoprolol succinate 25 mg 12.5 mg PO QAM 06/14/23 03/16/24 History tablet,extended release 24 hr phenazopyridine 200 mg tablet 200 mg PO Q8H PRN pain #10 tabs 01/02/24 03/16/24 Rx (Pyridium) albuterol sulfate 90 mcg/actuation 2 inh inhalation Q4H PRN Wheezing 03/16/24 03/16/24 History aerosol inhaler isosorbide mononitrate 30 mg 15 mg PO QAM 03/16/24 03/16/24 History tablet,extended release 24 hr prednisone 10 mg tablet See Rx Instructions .Route .COMPLEX 03/16/24 03/16/24 History tiotropium bromide 2.5 2 puff inhalation QAM 03/16/24 03/16/24 History mcg/actuation mist for inhalation (Spiriva Respimat) Past Med/Surg History Problem List (Updated 03/16/24 @ 17:18 by JIMBO [place]) Acute on chronic hypoxic respiratory failure Parainfluenza infection SIRS (systemic inflammatory response syndrome) Elevated troponin Acute exacerbation of chronic obstructive pulmonary disease (COPD) (Acute) Acute respiratory failure with hypoxia (Acute) Medical History (Updated 03/16/24 @ 17:18 by JIMBO [place]) CAD (coronary artery disease) On home oxygen therapy 2L at rest, 4L w/exertion Hx of respiratory syncytial virus infection 2021; all sx resolved Abnormal echocardiogram stress echo 05/[address] Ellsworth was positive for inducible ischemia; cardiac cath was postponed due to urology procedures per 06/2023 cardiology note History of COVID-19 HX X2 : Fall 2021 (most recent) - mild symptoms, resolved Non-small cell carcinoma of lung DX 2021/HX CHEMO AND RADIATION followed by monthyl immunotherapy; has now finished all treatments Diverticular disease Kidney stone Seasonal allergies Sleep apnea cannot tolerate CPAP Depression GERD (gastroesophageal reflux disease) occasional COPD (chronic obstructive pulmonary disease) stable HTN (hypertension) follows w/ Dr Ellsworth; stable on medication Surgical History S/P cystoscopy with ureteral stent placement multiple; most recent: 06/24/23: MAC without issue History of esophagogastroduodenoscopy (EGD) Nausea and vomiting after administration of anesthetic agent no issues with recent [facility] surgeries History of colonoscopy History of lithotripsy x3; S/P Cystoscopy, right ureteroscopy, RPG, stent, laser lithotripsy (11/02/19): LMA#4 at [facility] History of total hysterectomy History of tubal ligation History of cholecystectomy History of wisdom tooth extraction History of lumbar fusion L4-5 Family History Daughter Family history of diabetes mellitus (DM) Uncle Family history of diabetes mellitus (DM) Grandfather FHx: colon cancer Grandfather (Paternal) FHx: colon cancer Mother Cancer Grandmother (Maternal) Heart disease Other No family history of adverse response to anesthesia Social History Smoking Status: Former smoker Tobacco Type: Cigarettes Cigarettes Per Day: 20; Second Hand Exposure: No; Do You Dip or Chew Tobacco: No; Hx Alcohol Use: Yes Alcohol type: beer Hx Substance Use: Yes (medical card) Last Used Substance: Days (ago) Last Used Substance Other:: uses daily-gummies more than vape/inh. Substance Use Type Other:: has a medical marijuana card Preferred Language: Ukrainian Communication Ability: Effective Visual Impairment: No Limitations Technical Sales Consultant Required: No Beliefs That Will Affect Care: None marital status: Single Current Living Situation: Family Current Living Situation Comment: With daughter and sister How many Children do You have: 2 Feels Safe at Home: Yes Assistive Devices: CPAP, Denture - Upper, Denture - Lower, Glasses and Oxygen - Continuous Physical Exam Constitutional: WD/WN, vitals as above no acute distress Eyes: PERRL, conjunctivae normal, anicteric sclerae ENMT: external ear and nose normal, oropharynx normal Respiratory: normal respiratory effort and able to speak in complete sentences; no respiratory distress Auscultation: + wheezes (faint, end expiratory) minimal air movement BL Cardiovascular: Rate/Rhythm: regular rate and regular rhythm Vessels: normal peripheral pulses Extremities: no edema Gastrointestinal (Abdomen): normal bowel sounds, soft, nontender, no hepatosplenomegaly Musculoskeletal: no cyanosis or clubbing, extremities motor strength 5/5 Skin: no rashes, warm and dry Neurologic: PERRL, EOMI, accommodation nl, no face palsy, no dysarthria Psychiatric: A+Ox3, euthymic affect Results & Data Results & Data Vital Signs (Past 12 Hours) Vital Signs Temp Pulse Pulse Resp BP BP Pulse Ox 03/16/24 15:45 95 H 28 H 95 03/16/24 15:36 96 H 24 03/16/24 15:12 105 H 29 H 03/16/24 15:06 96 H 24 03/16/24 14:54 107 H 24 03/16/24 14:52 100 H 20 145/107 H 90 03/16/24 14:42 114 H 28 H 91 03/16/24 14:41 145/107 H 03/16/24 14:39 123 H 27 H 79 L 03/16/24 14:37 142/82 H 03/16/24 14:36 116 H 28 H 87 L 03/16/24 14:30 116 H 27 H 90 03/16/24 14:24 117 H 26 H 89 L 03/16/24 14:00 45 L 8 L 96 03/16/24 13:57 49 L 18 95 03/16/24 13:42 75 L 03/16/24 13:42 36.9 C 145 H 34 H 178/106 H 75 L O2 Del Method O2 Flow Rate 03/16/24 15:45 03/16/24 15:36 03/16/24 15:12 03/16/24 15:06 03/16/24 14:54 03/16/24 14:52 Nasal Cannula 4 03/16/24 14:42 03/16/24 14:41 03/16/24 14:39 03/16/24 14:37 03/16/24 14:36 03/16/24 14:30 03/16/24 14:24 03/16/24 14:00 03/16/24 13:57 03/16/24 13:42 Nasal Cannula 2 03/16/24 13:42 Nasal Cannula 2 Laboratory Results Short CBC 03/16/24 Range/Units 13:54 WBC 18.03 H (4.8-10.8) K/ul Hgb 13.8 (12.0-16.0) g/dl Hct 41.5 (37.0-47.0) % Plt Count 322 (130-400) K/uL BMP 03/16/24 13:54 Sodium 137 Potassium 4.5 Chloride 100 Carbon Dioxide 30 BUN 22 Creatinine 0.84 Glucose 181 H Calcium 9.4 Liver Function 03/16/24 Range/Units 13:54 Total Bilirubin 0.4 (0.2-1.0) mg/dl AST 33 (13-39) U/L ALT 26 (7-52) U/L Alkaline Phosphatase 81 (34-104) U/L Albumin 4.4 (3.4-5.0) gm/dl Diagnostic Findings Chest X-Ray 03/16/24 14:16 XR chest 1V portable CLINICAL HISTORY: sob, copd TECHNIQUE: Single frontal radiograph of the chest was obtained. Comparison: Comparison is made to chest radiograph 10/15/2023 FINDINGS: No lines and tubes are seen. Calcified aortic knob is seen. Mild emphysematous changes without acute abnormality. No evidence of pleural effusion or pneumothorax. IMPRESSION: Mild emphysematous changes. ACT 112: Negative or not required by law. Electronically signed by: Paul Gonzales M.D. 03/16/2024 2:43 PM Code Status & VTE Plan VTE Prophylaxis Plan VTE Prophylaxis will be ordered: Yes Supervising Physician Co-Signing Physician Notes Attending Addendum: Case reviewed with the advanced practitioner. I have personally performed a history and physical examination on the patient. I have reviewed the advanced practitioner's documentation on the date of service referenced in note, and I agree with, and take responsibility for the plan of care. please refer to her notes for full details patient seen and examined, records reviewed by myself as well on exam, patient Seen sitting up in bed, comfortable, not in distress States she is starting to feel improved compared to admission No active shortness of breath, chest pain, palpitations, nausea, dizziness on my exam no other symptoms VS noted and reviewed oriented x 3 , not in distress, speaks in sentences with no effort nor accessory muscle use normal rate, regular rhythm, no murmurs Positive mild bilateral wheezing and rhonchi non distended, soft, nontender no bipedal edema, erythema, warmth no neuro deficits all labs, imaging noted and reviewed ASSESSMENT AND PLAN> COPD exacerbation Acute viral bronchitis-parainfluenza infection Acute on chronic hypoxic respiratory failure Usually on 2 L of oxygen via nasal cannula Currently on 4 L Ceftriaxone plus doxycycline Nebs every 4 hours Solu-Medrol 40 mg every 8 hours Hypertonic saline Mucinex Flutter valve, incentive spirometry other diagnoses and plan of care as per advanced practitioner's notes Escobar Martinez MD
[2024-03-16] MEDS ORDERED: ACETAMINOPHEN 325 MG TAB PO PRN (18:45)
[2024-03-16] MEDS ORDERED: ALBUT/IPRATROP 3MG/0.5MG NEB 3 ML VIAL NEB PRN (18:45)
[2024-03-16] MEDS: cefTRIAXone SODIUM 1,000 MG/50 ML BAG IV SCH (19:14)
[2024-03-16] MEDS: ALBUT/IPRATROP 3MG/0.5MG NEB 3 ML VIAL NEB SCH (19:15)
[2024-03-16] MEDS: DOXYCYCLINE HYCLATE 100 MG CAP PO SCH (20:22)
[2024-03-16] MEDS: guaiFENesin 600 MG TABCR PO SCH (20:22)
[2024-03-16] MEDS: buPROPion SR 150 MG TABCR PO SCH (20:23)
[2024-03-16] MEDS: ENOXAPARIN INJ 40 MG/0.4 ML SYR SQ SCH (20:23)
[2024-03-16] MEDS: SERTRALINE HCL 50 MG TABLET PO SCH (20:23)
--- OUTSIDE RECORDS SUMMARY | 2024-03-17 00:15 | External Medical Summary ---
Author Name Unknown Address Unknown Organization [id number]:[facility] - [address] [place] [address] Laboratory Report Ordering Provider Test Date Status DANK OSEI 02/27/2024 09:41:49 Final Observation Date Value Abnormality Reference (Units ) Status Triglyceride 02/27/2024 09:41:49 110 <=174 ( mg/dL) Final Triglyceride Reference Range s (mg/dL):
<150 Acceptable
150-174 Borderline high
175-499 High
>=500 Very high Cholesterol 02/27/2024 09:41:49 124 <200 (mg /dL) Final Total Cholesterol Reference Ranges (mg/dL):
<200 Desirable
200-239 Borderline high
>=240 High HDL 02/27/2024 09:41:49 58 >49 (mg/dL ) Final HDL Cholesterol Reference Ra nges (mg/dL):
>=60 High (Desirable)
<50 Low (Undesirable) For Females
<40 Low (Undesirable) For Males NON-HDL CHOLESTEROL 02/27/2024 09:41:49 66 <=159 (mg/dL) Final Non-HDL Cholesterol Referenc e Range (mg/dL):
<100 Target level for high risk ASCVD patient
<130 Optimal for general population
130-159 Near optimal for general population
160-189 Borderline High
190-219 High
>=220 Very High LDL, (calculated) 02/27/2024 09:41:49 44 <= 129 (mg/dL) Final LDL Cholesterol Reference Ra nges (mg/dL):
<70 Target level for high risk ASCVD patient
<100 Optimal for general population
100-129 Near optimal for general population
130-159 Borderline high
160-189 High
>=190 Very high Performing Location [facility] - [address] [facility] [id number]
--- OUTSIDE RECORDS SUMMARY | 2024-03-17 00:15 | External Medical Summary | Summary of Care ---
Author Name Unknown Organization [facility] Address [address] [place] [address] Phone [phone] Care Team Providers Care Horticultural Agent Name Role Phone Ivy Holden PA-C Primary Care Provider [phone] Reason for Visit * Reason Comments eRx-Medication Refill Encounter Details Date Type Department Care Team (Late st Contact Info) Description 03/07/[address] [facility] [address] [facility] [place] [address] Ivy Holden PA-C 200 [place] [address] Allergies Active Allergy Reactions Criticality Noted Date Comments Penicillins Hives 01/26/2013 Sulfa Antibiotics Hives,Rash 01/26/2013 documented as of this encounter (statuses as of 03/10/2024) Medications Medication Sig Dispensed Refills Start Date [...] neoplasm of lower lobe of left lung ([facility]),Hilar lymphadenopathy Take by mouth 1 Tablet every 6 hours as needed for Nausea. 60 Tablet 2 06/12/2022 Active Azithromycin 250 MG Oral Tablet (Zithromax)Indication s:COPD, moderate ([facility]) Take two pills by mouth on first day, then one pill a day RESCUE KIT 6 Tablet 2 08/09/2022 Active Additional Information Patient not taking.Reported on 02/20/2024 Multivitamin Adults Oral Tablet Take 1 Tablet by mouth every evening. 30 Tablet 08/28/2022 Active Fluticasone Propionate 50 MCG/ACT Nasal Suspension (Flonase)Indications: Dysfunction of both eustachian tubes SPRAY 2 SPRAYS INTO EACH NOSTRIL EVERY DAY 48 mL 3 03/25/2023 Active Nitroglycerin 0.4 MG Sublingual Tablet Sublingual (Nitrostat)Indication s:SALDIVAR (dyspnea on exertion),Abnormal stress echocardiogram Place 1 Tablet under the tongue every 5 minutes as needed for Pain, Chest. up to 3 doses in 15 minutes 25 Tablet 11 05/28/2023 Active buPROPion HCl ER (SR) 150 MG Oral Tablet Extended Release 12 Hour (Wellbutrin SR) TAKE 1 TABLET BY MOUTH EVERY DAY IN THE MORNING AND BEFORE BEDTIME 180 Tablet 3 07/22/2023 Active Symbicort 160-4.5 MCG/ACT Inhalation AerosolIndications:CO PD (chronic obstructive pulmonary disease) ([facility]) Inhale 2 Puffs by mouth in the morning and 2 Puffs before bedtime. 30.6 g 3 07/22/2023 Active Sertraline HCl 50 MG Oral Tablet (Zoloft)Indications:A djustment disorder with depressed mood Take 1 Tablet by mouth in the morning. 90 Tablet 3 07/21/2023 Active Albuterol Sulfate HFA 108 (90 Base) MCG/ACT Inhalation Aerosol SolutionIndications:C OPD, group D, by GOLD 2017 classification ([facility]),Bronchitis, complicated INHALE 2 PUFFS BY MOUTH EVERY 4 HOURS NEEDED FOR WHEEZE 18 g 1 08/19/2023 Active oxygen IN GAS Use 2 L/min(Oxygen) as directed in the morning. With exertion as needed. Active Isosorbide Mononitrate ER 30 MG Oral Tablet Extended Release 24 Hour (Imdur) Take 0.5 Tablets by mouth in the morning. 45 Tablet 3 11/05/2023 Active Metoprolol Succinate ER 25 MG Oral Tablet Extended Release 24 Hour (toPROL XL)Indications:HTN, goal below 140/90 TAKE 1/2 TABLET BY MOUTH EVERY DAY 45 Tablet 3 11/19/2023 Active Aspirin Low Dose 81 MG Oral Tablet Delayed Release (aspirin enteric coated)Indications:HT N, goal below 140/90,Stable angina pectoris (HCC) TAKE 1 TABLET BY MOUTH EVERY DAY IN THE MORNING 90 Tablet 3 12/02/2023 Active Atorvastatin Calcium 20 MG Oral Tablet (Lipitor)Indications: Dyslipidemia,Dyslipid emia, goal LDL below 70 TAKE 1 TABLET BY MOUTH EVERY DAY IN THE MORNING 90 Tablet 3 12/02/2023 Active Benzonatate 100 MG Oral Capsule (Tessalon Perles) Take 1 Capsule by mouth 3 times a day as needed for Cough. Do not cut, crush, or chew. 50 Capsule 1 12/23/2023 Active Losartan Potassium 50 MG Oral Tablet (Cozaar)Indications:H TN, goal below 140/90 TAKE 1 TABLET BY MOUTH EVERY DAY IN THE MORNING 90 Tablet 2 01/14/2024 Active Triamcinolone Acetonide 55 MCG/ACT Nasal Aerosol (Nasacort Allergy 24HR) Administer 2 Sprays into each nostril in the morning. 16.9 mL 11 02/09/2024 Active Tiotropium [place] Monohydrate 1.25 MCG/ACT Inhalation Aerosol Solution (Spiriva Respimat) Inhale 2 Puffs by mouth. Active Phenazopyridine HCl 200 MG Oral Tablet (Pyridium) Take 1 Tablet by mouth every 8 hours as needed for Other (with kidney stent changes). 01/02/2024 Active Hospital, Clinic, or Other Facility Administered Medication Ordered Dose Route Frequency Start Date End Date Status albuterol-ipratropium (DUONEB) inhalation solution 3 mLIndications:Lung infection 3 mL NEBULIZER RESPQID 01/14/2018 Active documented as of this encounter (statuses as of 03/10/2024) Active Problems Problem Noted Date Diagnosed Date Food insecurity 08/27/2022 Overview: Per [facility] Protocol Malignant neoplasm of lower lobe of left lung Hilar lymphadenopathy 06/12/2022 Encounter for antineoplastic chemotherapy 2021 COPD, group D, by GOLD 2017 classification 03/23 Overview: Per COPD GOLD Classification Family history of cancer 03/10/2019 Overview: Mother with unknown primary Night sweats 03/10/2019 Centrilobular emphysema 09/08/2018 Pulmonary nodules 09/08/2018 Cigarette nicotine dependence in remission 09/08 Tobacco abuse, in remission 05/26/2018 DDD (degenerative disc disease), lumbar 05/07/20 13 HTN, goal below 140/90 Depression documented as of this encounter (statuses as of 03/10/2024) Resolved Problems Problem Noted Date Diagnosed Date Resolved Date Recurrent major depressive disorder 09/08/2019 10/24/2023 COPD, moderate 09/08/2018 03/25/2019 Overview: Per COPD GOLD Classification Abnormal chest x-ray 05/26/2018 018 Tobacco use disorder 03/27/2013 018 Asthma 04/07/2018 COPD (chronic obstructive pulmonary disease) 03/25/2019 documented as of this encounter (statuses as of 03/10/2024) Immunizations Name Administration Dates Next Due Pneumococcal Conjugate Vacc, 13 Valent (Prevnar) 10/04/2016 Pneumococcal Polysaccharide PPV23 (Pneumovax) 10/10/2017 Seasonal Influenza, PF, 6 M & above, IM , (FluLaval or Fluzone) 06/27/2023,07/30/2022,10/04/2021,06/23,08/08/2019,09/08/2018 Seasonal Influenza, Quadriva lent, No Preserve, IM 10/04/2016 Seasonal Influenza, Split, I IV3, With Preserve, Inj 08/05/2017,07/20/2015,07/20/2014,06/14 TDAP (age 10 and older)(Boostrix) 03/02/2014 Zoster Vaccine Recombinant (Shingrix) 06/23/2020 ,11/30/2019 documented as of this encounter Social History Tobacco Use Types Packs/Day Years Used Date Smoking Tobacco: Former Cigarettes 1 35 0 12/12/1986 - 12/12/2021 Smokeless Tobacco: Never Alcohol Use Standard [...] you didn't have money to get more. Never true 02/2024 Sex and Gender Information Value Date Recorded Sex Assigned at Female 01/26/2019 9:52 AM EDT Gender Identity Female 01/26/2019 9:52 AM EDT Sexual Orientation Straight 01/26/2019 9: 52 AM EDT Job Start Date Occupation Industry Not on file Not on file Not on file documented as of this encounter Miscellaneous Notes * Telephone Encounter - Patito Adams RPh - 03/10/2024 9:32 AM EDT Refused Prescriptions: Disp Refills buPROPion HCl ER (SR) 150 MG Oral Tablet E*180 Ta*3 Sig: TAKE 1 TABLET BY MOUTH EVERY DAY IN THE MORNING AND AT BEDTIMERefused By: PATITO ADAMS for Refusal: Too soon documented in this encounter Plan of Treatment Upcoming Encounters Date Type Department Care Team (Late st Contact Info) Description 03/18/2024 11:00 AM EDT PulmDiagnostic Pulmonary Function Lab, [facility] [address] [address] [address], [address] [place] [address] 03/27/2024 9:30 AM EDT Office Visit Radiation Oncology, [facility] [address] [facility] [address] Ernesto Hoffman MD [address] [facility] [place] [address] 04/23/2024 11:40 AM EDT Office Visit Family Practice [facility] [address] [place] [address] Ivy Holden PA-C [address] [facility] [place] [address] 05/25/2024 11:00 AM EDT Laboratory [facility], [facility] [phone] [facility] [address] 05/28/2024 11:00 AM EDT Imaging Radiology [facility] [address] [facility] [address] [facility] [place] [address] 06/04/2024 10:45 AM EDT Office Visit Hematology/Oncology [facility] [address] [facility] [place] [phone] Igor Sommers MD [address] [facility] [place] [address] 08/17/2024 10:20 AM EST Office Visit Pulmonary Medicine, [facility] [address] [facility] [place] [address] Danny Velez MD [address] [place] [address] 09/14/2024 4:00 PM EST Office Visit Cardiology, [facility] [address] [facility] [place] [address] Rahul Ellsworth, DO [address] [place] [address] Scheduled Procedures Name Priority Associated Diagnoses Date/Ti me COLONOSCOPY FLEXIBLE PROXIMAL DIAGNOSTIC Recall History of colon polyps Health Maintenance Due Date Last Done Comments Hepatitis B (1 of 3 - 19+ 3-dose series) 1983 Cologuard 2009 Fecal Occult Blood Test 2009 Sigmoidoscopy 2009 *ADVANCE DIRECTIVE NOT ON FILE 03/28/2019 Mammogram 06/20/2022 06/20/2021, 06/14, 04/09/2019, Additional history exists COVID-19 Vaccine (1 - 2022- season) 2023 DTaP,Tdap,and Td Vaccines (2 - Td or Tdap) 03/02/2024 03/02/2014 GFR 08/05/2024 08/05/2023, 06/15, 06/06/2023, Additional history exists Colonoscopy 10/19/2024 10/19/2019, 10/2013, 09/13/2014 Colorectal Cancer Screening 10/19/2024 O2 ASSESSMENT COMPLETED IN PAST YEAR FOR COPD 01/26/2025 01/27/2024 Albumin/Creatinine Ratio 10/19/2025 10/19/2022 Diabetes Screening 08/05/2026 08/05/2023, 0 07/08/2023, 06/06/2023, Additional history exists Lipid Panel 02/26/2029 02/27/2024, 05/15, 01/26/2019, Additional history exists Pneumococcal Vaccine: Pediatrics (0 to 5 Years) and At-Risk Patients (6 to 64 Years) (3 of 3 - PPSV23 or PCV20) 2029 10/10/2017, 10/04/2016 Alpha-1 Antitrypsin Completed 02/26/2019 RETIRED - COLONOSCOPY-EVERY 5 YRS AGES 18-100 Discontinued 10/19/2019, 09/13/2014, 09/13/2014 Zoster Vaccines Completed 06/23/2020, 11/30/2019 Influenza Vaccine (FLU shot) Completed 06/27/2023, 07/30/2022, 10/04/2021, Additional history exists GARDASIL-HPV IMMUNIZATION SERIES Aged Out No longer eligible based on patient's age to complete this topic MENINGOCOCCAL (MENACTRA/MENVEO) Aged Out No longer eligible based on patient's age to complete this topic documented as of this encounter Medical Devices Not on filedocumented as of this encounter Care Teams Horticultural Agent Relationship Specialty Start Date End Date AdinaJanuary ANU Juares [address] [place] [address] PCP - General Physician Immigration Specialist 11/30/19 documented as of this encounter
--- OUTSIDE RECORDS SUMMARY | 2024-03-17 00:15 | External Medical Summary | Summary of Care ---
Author Name Unknown Organization [facility] Address [address] [place] [address] Phone [phone] Care Team Providers Care Housing Specialist Name Role Phone Ivy Holden PA-C Primary Care Provider [phone] Reason for Visit * Reason Comments Outpatient Testing Encounter Details Date Type Department Care Team (Late st Contact Info) Description 02/27/2024 9:40 AM EDT Laboratory Laboratory, [facility] [address] [facility] [phone] [facility] [address] [facility] [place] [phone] Dyslipidemia, goal LDL below 70 Allergies Active Allergy Reactions Criticality Noted Date Comments Penicillins Hives 01/26/2013 Sulfa Antibiotics Hives,Rash 01/26/2013 documented as of this encounter (statuses as of 02/27/2024) Medications Medication Sig Dispensed Refills Start Date [...] neoplasm of lower lobe of left lung ([facility]),Hilar lymphadenopathy Take by mouth 1 Tablet every 6 hours as needed for Nausea. 60 Tablet 2 06/12/2022 Active Azithromycin 250 MG Oral Tablet (Zithromax)Indication s:COPD, moderate ([facility]) Take two pills by mouth [...] Inhalation AerosolIndications:CO PD (chronic obstructive pulmonary disease) ([facility]) Inhale 2 Puffs by mouth in the morning and 2 Puffs before bedtime. 30.6 g 3 07/22/2023 Active Sertraline HCl 50 MG Oral Tablet (Zoloft)Indications:A djustment disorder with depressed mood Take 1 Tablet by mouth in the morning. 90 Tablet 3 07/21/2023 Active Albuterol Sulfate HFA 108 (90 Base) MCG/ACT Inhalation Aerosol SolutionIndications:C OPD, group D, by GOLD 2017 classification ([facility]),Bronchitis, complicated INHALE 2 PUFFS BY MOUTH EVERY 4 HOURS NEEDED FOR WHEEZE 18 g 1 08/19/2023 Active oxygen IN GAS Use 2 L/min(Oxygen) as directed in the morning. With exertion as needed. 0 Active Isosorbide Mononitrate ER 30 MG Oral [...] morning. 16.9 mL 11 02/09/2024 Active Tiotropium [place] Monohydrate 1.25 MCG/ACT Inhalation Aerosol Solution (Spiriva Respimat) Inhale 2 Puffs by mouth. 0 Active Phenazopyridine HCl 200 MG Oral Tablet (Pyridium) Take 1 Tablet by mouth every 8 hours as needed for Other (with kidney stent changes). 0 01/02/2024 Active Hospital, Clinic, or Other Facility Administered Medication Ordered Dose Route Frequency Start Date End Date Status albuterol-ipratropium (DUONEB) inhalation solution 3 mLIndications:Lung infection 3 mL NEBULIZER RESPQID 01/14/2018 Active documented as of this encounter (statuses as of 02/27/2024) Active Problems Problem Noted Date Diagnosed Date Food insecurity 08/27/2022 Overview: Per [facility] Protocol Malignant neoplasm of lower lobe [...] as of this encounter (statuses as of 02/27/2024) Resolved Problems Problem Noted Date Diagnosed Date Resolved Date Recurrent major depressive disorder 09/08/2019 10/24/2023 COPD, moderate 09/08/2018 03/25/2019 Overview: Per COPD GOLD Classification Abnormal chest x-ray 05/26/2018 018 Tobacco use disorder 03/27/2013 018 Asthma 04/07/2018 COPD (chronic obstructive pulmonary disease) 03/25/2019 documented as of this encounter (statuses as of 02/27/2024) Immunizations Name Administration Dates Next Due Pneumococcal [...] on file documented as of this encounter Plan of Treatment Upcoming Encounters Date Type Department Care Team (Late st Contact Info) Description 03/18/2024 11:00 AM EDT PulmDiagnostic Pulmonary Function Lab, [facility] 132 [facility] [place] [address] [address], [address] [facility] [place] [address] 03/27/2024 9:30 AM EDT Office Visit Radiation Oncology, [facility] [address] [place] [address] Ernesto Hoffman MD [address] [place] [address] [place] [address] 04/23/2024 11:40 AM EDT Office Visit Family Practice [facility] [place] [address] [place] [address] Ivy Holden PA-C [address] [facility] [place] [address] 05/25/2024 11:00 AM EDT Laboratory Laboratory, [facility] 132 [facility] [place] [phone] [facility] [address] [facility] [place] [address] 05/28/2024 11:00 AM EDT Imaging Radiology [facility]st [facility] [address] [facility] [place] [address] 06/04/2024 10:45 AM EDT Office Visit Hematology/Oncology [facility] 200 [facility] [place] [phone] Igor Sommers MD [address] [place] [address] 08/17/2024 10:20 AM EST Office Visit Pulmonary Medicine, [facility] 132 [facility] [place] [address] Danny Velez MD [address] [place] [address] 09/14/2024 4:00 PM EST Office Visit Cardiology, [address] [place] [address] Rahul Ellsworth, 132 [facility] [place] [address] Pending Results Name Type Priority Associated Diagnoses Date /Time LIPID PANEL WITH DIRECT LDL IF TG IS HIGH Lab Routine Dyslipidemia, goal LDL below 70 02/27/2024 9:41 AM EDT Scheduled Procedures Name Priority Associated Diagnoses Date/Ti [...] as of this encounter Visit Diagnoses Diagnosis Dyslipidemia, goal LDL below 70 Other and unspecified hyperlipidemia documented in this encounter Care Teams Housing Specialist Relationship Specialty Start Date End Date Adina January ANU Juares [address] [place] [address] PCP - General Physician Prehemmer 11/30/19 documented as of this encounter
--- OUTSIDE RECORDS SUMMARY | 2024-03-17 00:15 | External Medical Summary | Summary of Care ---
Author Name Unknown Organization [facility] Address [address] [place] [facility] [place] [address] Phone [phone] Care Team Providers Care Kennel Aide Name Role Phone Ivy Moya PA-C Primary Care Provider [phone] Reason for Visit * Reason Onset Date Comments Medication Refill 03/11/2024 Encounter Details Date Type Department Care Team (Late st Contact Info) Description 03/11/2024 Refill Family Practice [facility] [place] 200 [facility] [place] [address] Ivy Moya PA-C 200 [facility] [place] [address] COPD, group D, by GOLD 2017 classification ([facility]); Bronchitis, complicated Allergies Active Allergy Reactions Criticality Noted Date Comments Penicillins Hives 01/26/2013 Sulfa Antibiotics Hives,Rash 01/26/2013 documented as of this encounter (statuses as of 03/12/2024) Medications Medication Sig Dispensed Refills Start Date End Date Status CALCIUM 1000 + D 1000-800 MG-UNIT PO TABS 2 daily 30 Tab 0 01/26/2013 Active Cyclobenzaprine HCl 10 MG Oral Tablet (Flexeril)Indication s:DDD (degenerative disc disease), lumbar TAKE 1 TABLET BY MOUTH AT BEDTIME NEEDED FOR MUSCLE SPASMS. 30 Tablet 1 04/09/2022 Active Ondansetron HCl 8 MG Oral TabletIndications:Ma lignant neoplasm of lower lobe of left lung (HCC),Hilar lymphadenopathy Take by mouth 1 Tablet every 8 hours as needed for Nausea. 30 Tablet 3 06/12/2022 Active Prochlorperazine Maleate 10 MG Oral Tablet (Compazine)Indicatio ns:Malignant neoplasm of lower lobe of left lung (HCC),Hilar lymphadenopathy Take by mouth 1 Tablet every 6 hours as needed for Nausea. 60 Tablet 2 06/12/2022 Active Azithromycin 250 MG Oral Tablet (Zithromax)Indicatio ns:COPD, moderate ([facility]) Take two pills by mouth on first day, then one pill a day RESCUE KIT 6 Tablet 2 08/09/2022 Active Additional Information Patient not taking.Reported on 02/20/2024 Multivitamin Adults Oral Tablet Take 1 Tablet by mouth every evening. 30 Tablet 08/28/2022 Active Fluticasone Propionate 50 MCG/ACT Nasal Suspension (Flonase)Indications :Dysfunction of both eustachian tubes SPRAY 2 SPRAYS INTO EACH NOSTRIL EVERY DAY 48 mL 3 03/25/2023 Active Nitroglycerin 0.4 MG Sublingual Tablet Sublingual (Nitrostat)Indicatio ns:SALDIVAR (dyspnea on exertion),Abnormal stress echocardiogram Place 1 Tablet under the tongue every 5 minutes as needed for Pain, Chest. up to 3 doses in 15 minutes 25 Tablet 11 05/28/2023 Active Symbicort 160-4.5 MCG/ACT Inhalation AerosolIndications:C OPD (chronic obstructive pulmonary disease) ([facility]) Inhale 2 Puffs by mouth in the morning and 2 Puffs before bedtime. 30.6 g 3 07/22/2023 Active Sertraline HCl 50 MG Oral Tablet (Zoloft)Indications: Adjustment disorder with depressed mood Take 1 Tablet by mouth in the morning. 90 Tablet 3 07/21/2023 Active oxygen IN GAS Use 2 L/min(Oxygen) [...] MG Oral Tablet Delayed Release (aspirin enteric coated)Indications:H TN, goal below 140/90,Stable angina pectoris ([facility]) TAKE 1 TABLET BY MOUTH EVERY DAY IN THE MORNING 90 Tablet 3 12/02/2023 Active Atorvastatin Calcium 20 MG Oral Tablet (Lipitor)Indications :Dyslipidemia,Dyslip idemia, goal LDL below 70 TAKE 1 TABLET BY MOUTH EVERY DAY IN THE MORNING 90 Tablet 3 12/02/2023 Active Benzonatate 100 MG Oral Capsule (Tessalon Perles) Take 1 Capsule by mouth 3 times a day as needed for Cough. Do not cut, crush, or chew. 50 Capsule 1 12/23/2023 Active Losartan Potassium 50 MG Oral Tablet (Cozaar)Indications: HTN, goal below 140/90 TAKE 1 TABLET BY MOUTH EVERY DAY IN THE MORNING 90 Tablet 2 01/14/2024 Active Tiotropium [place] Monohydrate 1.25 MCG/ACT Inhalation Aerosol Solution (Spiriva Respimat) Inhale 2 Puffs by mouth. Active Phenazopyridine HCl 200 MG Oral Tablet (Pyridium) Take 1 Tablet by mouth every 8 hours as needed for Other (with kidney stent changes). 01/02/2024 Active buPROPion HCl ER (SR) 150 MG Oral Tablet Extended Release 12 Hour (Wellbutrin SR) TAKE 1 TABLET BY MOUTH EVERY DAY IN THE MORNING AND BEFORE BEDTIME 180 Tablet 1 03/12/2024 Active Albuterol Sulfate HFA 108 (90 Base) MCG/ACT Inhalation Aerosol SolutionIndications: COPD, group D, by GOLD 2017 classification ([facility]),Bronchitis, complicated INHALE 2 PUFFS BY MOUTH EVERY 4 HOURS NEEDED FOR WHEEZE 18 g 2 03/12/2024 Active Triamcinolone Acetonide 55 MCG/ACT Nasal Aerosol (Nasacort Allergy 24HR) Administer 2 Sprays into each nostril in the morning. 16.9 mL 11 03/12/2024 Active buPROPion HCl ER (SR) 150 MG Oral Tablet Extended Release 12 Hour (Wellbutrin SR) TAKE 1 TABLET BY MOUTH EVERY DAY IN THE MORNING AND BEFORE BEDTIME 180 Tablet 3 07/22/2023 03/11/20 24 Discontinu ed(Refill) Albuterol Sulfate HFA 108 (90 Base) MCG/ACT Inhalation Aerosol SolutionIndications: COPD, group D, by GOLD 2017 classification ([facility]),Bronchitis, complicated INHALE 2 PUFFS BY MOUTH EVERY 4 HOURS NEEDED FOR WHEEZE 18 g 1 08/19/2023 03/11/20 24 Discontinu ed(Refill) Triamcinolone Acetonide 55 MCG/ACT Nasal Aerosol (Nasacort Allergy 24HR) Administer 2 Sprays into each nostril in the morning. 16.9 mL 11 02/09/2024 03/11/20 24 Discontinu ed(Refill) Hospital, Clinic, or Other Facility Administered Medication Ordered Dose Route Frequency Start Date End Date Status albuterol-ipratropium (DUONEB) inhalation solution 3 mLIndications:Lung infection 3 mL NEBULIZER RESPQID 01/14/2018 Active documented as of this encounter (statuses as of 03/12/2024) Active Problems Problem Noted Date Diagnosed Date Food insecurity 08/27/2022 Overview: Per [facility] Protocol Malignant neoplasm of lower lobe [...] as of this encounter (statuses as of 03/12/2024) Resolved Problems Problem Noted Date Diagnosed Date Resolved Date Recurrent major depressive disorder 09/08/2019 10/24/2023 COPD, moderate 09/08/2018 03/25/2019 Overview: Per COPD GOLD Classification Abnormal chest x-ray 05/26/2018 018 Tobacco use disorder 03/27/2013 018 Asthma 04/07/2018 COPD (chronic obstructive pulmonary disease) 03/25/2019 documented as of this encounter (statuses as of 03/12/2024) Immunizations Name Administration Dates Next Due Pneumococcal [...] encounter Miscellaneous Notes * Telephone Encounter - John Posadas, [facility] - 03/12/2024 1:20 PM EDT Signed Prescriptions: Disp Refills buPROPion HCl ER (SR) 150 MG Oral Tablet E*180 Ta*1 Sig: TAKE 1TABLET BY MOUTH EVERY DAY IN THE MORNING AND BEFORE BEDTIMEAuthorizing Provider: IVY MOYA User: JOHN POSADAS Albuterol Sulfate HFA 108 (90 Base) MCG/AC*18 g 2 Sig: INHALE 2 PUFFS BY MOUTH EVERY 4 HOURS NEEDED FOR WHEEZEAuthorizing Provider: IVY MOYA User: JOHN POSADAS Triamcinolone Acetonide 55 MCG/ACT Nasal A*16.9 mL11 Sig: Administer 2 Sprays into each nostril in the morning.Authorizing Provider: IVY MOYA User: JOHN POSADAS documented in this encounter Plan of Treatment Upcoming Encounters Date Type Department Care Team (Late st Contact Info) Description 03/18/2024 11:00 AM EDT PulmDiagnostic Pulmonary Function Lab, [facility] [address] [facility] [place] [address] [facility] 132 [facility] [place] [address] 03/27/2024 9:30 AM EDT Office Visit Radiation Oncology, [facility] [address] [facility] [address] Ernesto Hoffman MD [address] [place] [address] [place] [address] 04/23/2024 11:40 AM EDT Office Visit Family [facility] [place] 200 [facility] [place] [address] Ivy Moya PA-C 200 [facility] [place] [address] 05/25/2024 11:00 AM EDT Laboratory Laboratory, [facility] 132 [facility] [place] [phone] [facility] 132 [facility] [place] [address] 05/28/2024 11:00 AM EDT Imaging Radiology [facility] 132 [facility] [place] [address] 06/04/2024 10:45 AM EDT Office Visit Hematology/Oncology [facility] 200 [facility] [place] [place] [phone] Igor Sommers MD 200 [facility] [place] [address] 08/17/2024 10:20 AM EST Office Visit Pulmonary Medicine, [facility] 132 [facility] [place] [address] Danny Velez MD [address] [place] [address] 09/14/2024 4:00 PM EST Office Visit Cardiology, [facility] 132 [facility] [place] [address] Rahul Ellsworth, 132 [facility] [place] [address] Scheduled Procedures Name Priority Associated Diagnoses Date/Ti me COLONOSCOPY FLEXIBLE PROXIMAL DIAGNOSTIC Recall History of colon polyps Health Maintenance Due Date Last Done Comments Hepatitis B (1 of 3 - 19+ 3-dose series) 1983 Cologuard 2009 Fecal Occult Blood Test 2009 Sigmoidoscopy 2009 *ADVANCE DIRECTIVE NOT ON FILE 03/28/2019 Mammogram 06/20/2022 06/20/2021, 06/14, 04/09/2019, Additional history exists COVID-19 Vaccine (2022- season) 2023 DTaP,Tdap,and Td Vaccines (2 - Td or Tdap) 03/02/2024 03/02/2014 GFR 08/05/2024 08/05/2023, 06/15, 06/06/2023, Additional history exists Colonoscopy 10/19/2024 10/19/2019, 1210/2013, 09/13/2014 Colorectal Cancer Screening 10/19/2024 O2 ASSESSMENT [...] as of this encounter Visit Diagnoses Diagnosis COPD, group D, by GOLD 2017 classification (HCC) Bronchitis, complicated Bronchitis, not specified as acute or chronic documented in this encounter Care Teams Kennel Aide Relationship Specialty Start Date End Date AdinaJanuary ANU Juares [address] [place] [address] PCP - General Physician [employer] 11/30/19 documented as of this encounter
--- OUTSIDE RECORDS SUMMARY | 2024-03-17 00:15 | External Medical Summary | Summary of Care ---
Author Name Unknown Organization [facility] Address [address] [facility] [place] [address] Phone [phone] Care Team Providers Care Ict Support And Test Engineers Name Role Phone Adina Ivy Juares PA-C Primary Care Provider Encounter Details Date Type Department Care Team (Late st Contact Info) Description 02/24/2024 Orders Only PATIENT PORTAL DO NOT DELETE THIS DEPT USED BY [place] [id number] Allergies Active Allergy Reactions Criticality Noted Date Comments Penicillins Hives 01/26/2013 Sulfa Antibiotics Hives,Rash 01/26/2013 documented as of this encounter (statuses as of 02/24/2024) Medications Medication Sig Dispensed Refills Start Date [...] 250 MG Oral Tablet (Zithromax)Indication s:COPD, moderate ([facility]) Take two pills by mouth on first [...] Inhalation AerosolIndications:CO PD (chronic obstructive pulmonary disease) ([facility]) Inhale 2 Puffs by mouth in the morning and 2 Puffs before bedtime. 30.6 g 3 07/22/2023 Active Sertraline HCl 50 MG Oral Tablet (Zoloft)Indications:A djustment disorder with depressed mood Take 1 Tablet by mouth in the morning. 90 Tablet 3 07/21/2023 Active Albuterol Sulfate HFA 108 (90 Base) MCG/ACT Inhalation Aerosol SolutionIndications:C OPD, group D, by GOLD 2017 classification ([facility]),Bronchitis, complicated INHALE 2 PUFFS BY MOUTH EVERY [...] morning. 16.9 mL 11 02/09/2024 Active Tiotropium [place] Monohydrate 1.25 MCG/ACT Inhalation Aerosol Solution (Spiriva [...] as of this encounter (statuses as of 02/24/2024) Active Problems Problem Noted Date Diagnosed Date Food insecurity 08/27/2022 Overview: Per [facility] Protocol Malignant neoplasm of lower [...] as of this encounter (statuses as of 02/24/2024) Resolved Problems Problem Noted Date Diagnosed Date Resolved Date Recurrent major depressive disorder 09/08/2019 10/24/2023 COPD, moderate 09/08/2018 03/25/2019 Overview: Per COPD GOLD Classification Abnormal chest x-ray 05/26/2018 018 Tobacco use disorder 03/27/2013 018 Asthma 04/07/2018 COPD (chronic obstructive pulmonary disease) 03/25/2019 documented as of this encounter (statuses as of 02/24/2024) Immunizations Name Administration Dates Next Due Pneumococcal [...] Average Number of Drinks Not on file 04/15/2 019 Frequency of Binge Drinking Weekly 01/12 [...] Care Team (Late st Contact Info) Description 03/27/2024 9:30 AM EDT Office Visit Radiation Oncology, [facility] [address] [place] [address] Ernesto Hoffman MD [address] [place] [address] 04/23/2024 11:40 AM EDT Office Visit Family Practice [facility] 200 [facility] [place] [address] Ivy oHlden PA-C 200 [facility] [place] [address] 05/25/2024 11:00 AM EDT Laboratory Laboratory, [facility] 132 [facility] [place] [phone] [facility] 132 [facility] [place] [address] 05/28/2024 11:00 AM EDT Imaging Radiology [facility] [address] [facility] 132 [facility] [place] [address] 06/04/2024 10:45 AM EDT Office Visit Hematology/Oncology [facility] 200 [facility] [place] [address] Igor Sommers MD 200 [facility] [place] [address] 08/17/2024 10:20 AM EST Office Visit Pulmonary Medicine, [facility] [place] [address] Danny Velez MD [address] [facility] [place] [address] 09/14/2024 4:00 PM EST Office Visit Cardiology, [facility] 132 [facility] [place] [address] Rahul Ellsworth, 132 [facility] [place] [address] Scheduled Procedures Name Priority Associated Diagnoses Date/Ti me COLONOSCOPY FLEXIBLE PROXIMAL DIAGNOSTIC Recall History of colon polyps Health Maintenance Due Date Last Done Comments Hepatitis B (1 of 3 - 19+ 3-dose series) 1983 Cologuard 2009 Fecal Occult Blood Test 2009 Sigmoidoscopy 2009 *ADVANCE DIRECTIVE NOT ON FILE 03/28/2019 Mammogram 06/20/2022 06/20/2021, 06/14, 04/09/2019, Additional history exists COVID-19 Vaccine ( - 2022- season) 2023 DTaP,Tdap,and Td Vaccines [...] filedocumented as of this encounter Care Teams Ict Support And Test Engineers Relationship Specialty Start Date End Date Adina January ANU Juares [address] [place] [address] PCP - General Physician Student Counsellor 11/30/19 documented as of this encounter
--- OUTSIDE RECORDS SUMMARY | 2024-03-17 00:15 | External Medical Summary | Summary of Care ---
Author Name Unknown Organization [facility] Address [address] [facility] [place] [address] Phone [phone] Care Team Providers Care Licensed Home Inspector Name Role Phone Ivy Moya PA-C Primary Care Provider [phone] Reason for Visit * Reason Onset Date Comments Medication Refill 03/11/2024 Encounter Details Date Type Department Care Team (Late st Contact Info) Description 03/11/2024 Refill Family Practice [facility] [place] 200 [facility] [place] [address] Ivy Moya PA-C 200 [facility] [place] [address] COPD, group D, by GOLD 2017 classification ([facility]); Bronchitis, complicated Allergies Active Allergy Reactions Criticality Noted Date Comments Penicillins Hives 01/26/2013 Sulfa Antibiotics Hives,Rash 01/26/2013 documented as of this encounter (statuses as of 03/16/2024) Medications Medication Sig Dispensed Refills Start Date [...] 250 MG Oral Tablet (Zithromax)Indicatio ns:COPD, moderate ([facility]) Take two pills by mouth on [...] Inhalation AerosolIndications:C OPD (chronic obstructive pulmonary disease) ([facility]) Inhale 2 Puffs by mouth in [...] coated)Indications:H TN, goal below 140/90,Stable angina pectoris ([facility]) TAKE 1 TABLET BY MOUTH EVERY DAY [...] MORNING 90 Tablet 2 01/14/2024 Active Tiotropium [place] Monohydrate 1.25 MCG/ACT Inhalation Aerosol Solution (Spiriva [...] COPD, group D, by GOLD 2017 classification ([facility]),Bronchitis, complicated INHALE 2 PUFFS BY MOUTH [...] COPD, group D, by GOLD 2017 classification ([facility]),Bronchitis, complicated INHALE 2 PUFFS BY MOUTH [...] as of this encounter (statuses as of 03/16/2024) Active Problems Problem Noted Date Diagnosed Date [...] as of this encounter (statuses as of 03/16/2024) Resolved Problems Problem Noted Date Diagnosed Date Resolved Date Recurrent major depressive disorder 09/08/2019 10/24/2023 COPD, moderate 09/08/2018 03/25/2019 Overview: Per COPD GOLD Classification Abnormal chest x-ray 05/26/2018 018 Tobacco use disorder 03/27/2013 018 Asthma 04/07/2018 COPD (chronic obstructive pulmonary disease) 03/25/2019 documented as of this encounter (statuses as of 03/16/2024) Immunizations Name Administration Dates Next Due Pneumococcal [...] encounter Miscellaneous Notes * Telephone Encounter - Nereida Posadas, [facility] - 03/12/2024 1:20 PM EDT Signed Prescriptions: Disp Refills buPROPion HCl ER (SR) 150 MG Oral Tablet E*180 Ta*1 Sig: TAKE 1 TABLET BY MOUTH EVERY DAY IN THE MORNING AND BEFORE BEDTIMEAuthorizing Provider: IVY MOYA User: NEREIDA POSADAS Albuterol Sulfate HFA 108 (90 Base) MCG/AC*18 g 2 Sig: INHALE 2 PUFFS BY MOUTH EVERY 4 HOURS NEEDED FOR WHEEZEAuthorizing Provider: IVY MOYA User: NEREIDA POSADAS Triamcinolone Acetonide 55 MCG/ACT Nasal A*16.9 mL11 Sig: Administer 2 Sprays into each nostril in the morning.Authorizing Provider: IVY MOYA User: NEREIDA POSADAS documented in this encounter Plan of Treatment Upcoming Encounters Date Type Department Care Team (Late st Contact Info) Description 03/27/2024 9:30 AM EDT Office Visit Radiation Oncology, [facility] [address] [place] [address] Ernesto Hoffman MD [address] [place] [address] 04/23/2024 11:40 AM EDT Office Visit Family Practice [facility] [address] [place] [address] Ivy Moya PA-C [address] [place] [address] 05/25/2024 11:00 AM EDT [facility] [phone] Ladonna Dumas [facility] [place] [address] 05/28/2024 11:00 AM EDT Imaging Radiology [facility] 1st [facility] 132 [facility] [place] [address] 06/04/2024 10:45 AM EDT Office Visit Hematology/Oncology [facility] [address] [place] [phone] Igor Sommers MD [address] [place] [address] 08/17/2024 10:20 AM EST Office Visit Pulmonary Medicine, [facility] 132 [facility] [place] [address] Danny Velez MD [address] [place] [address] 09/14/2024 4:00 PM EST Office Visit Cardiology, [facility] 132 [facility] [place] [address] Rahul Ellsworth, 132 [facility] [place] [address] Scheduled Procedures Name Priority Associated Diagnoses Date/Ti [...] chronic documented in this encounter Care Teams Licensed Home Inspector Relationship Specialty Start Date End Date Ivy Moya PA-C [address] [place], [place] [address] PCP - General Physician Tapper Hand 11/30/19 documented as of this encounter
--- OUTSIDE RECORDS SUMMARY | 2024-03-17 00:16 | External Medical Summary | Summary of Care ---
Author Name Unknown Organization [facility] Address [address] [facility] [place] [address] Phone [phone] Care Team Providers Care Surgical Instrument Maker Name Role Phone Ivy Holden PA-C Primary Care Provider [phone] Reason for Visit * Reason Comments Follow Up Encounter Details Date Type Department Care Team (Late st Contact Info) Description 02/20/2024 4:00 PM EDT Office Visit Cardiology, [facility] [address] [place] [address] Rahul Ellsworth, [address] [place] [address] Stable angina pectoris (HCC)*; HTN, goal below 140/90; Dyslipidemia, goal LDL below 70 Allergies Active Allergy Reactions Criticality Noted Date Comments Penicillins Hives 01/26/2013 Sulfa Antibiotics Hives,Rash 01/26/2013 documented as of this encounter (statuses as of 02/20/2024) Medications Medication Sig Dispensed Refills Start Date End Date Status CALCIUM 1000 + D 1000-800 MG-UNIT PO TABS 2 daily 30 Tab 0 3 Active Cyclobenzaprine HCl 10 MG Oral Tablet (Flexeril)Indicatio ns:DDD (degenerative disc disease), lumbar TAKE 1 TABLET BY MOUTH AT BEDTIME NEEDED FOR MUSCLE SPASMS. 30 Tablet 1 2 Active Ondansetron HCl 8 MG Oral TabletIndications:M alignant neoplasm of lower lobe of left lung (HCC),Hilar lymphadenopathy Take by mouth 1 Tablet every 8 hours as needed for Nausea. 30 Tablet 3 2 Active Prochlorperazine Maleate 10 MG Oral Tablet (Compazine)Indicati ons:Malignant neoplasm of lower lobe of left lung (HCC),Hilar lymphadenopathy Take by mouth 1 Tablet every 6 hours as needed for Nausea. 60 Tablet 2 2 Active Azithromycin 250 MG Oral Tablet (Zithromax)Indicati ons:COPD, moderate ([facility]) Take two pills by mouth on first day, then one pill a day RESCUE KIT 6 Tablet 2 2 Active Additional Information Patient not taking.Reported on 02/20/2024 Multivitamin Adults Oral Tablet Take 1 Tablet by mouth every evening. 30 Tablet 0 2 Active Fluticasone Propionate 50 MCG/ACT Nasal Suspension (Flonase)Indication s:Dysfunction of both eustachian tubes SPRAY 2 SPRAYS INTO EACH NOSTRIL EVERY DAY 48 mL 3 3 Active Nitroglycerin 0.4 MG Sublingual Tablet Sublingual (Nitrostat)Indicati ons:SALDIVAR (dyspnea on exertion),Abnormal stress echocardiogram Place 1 Tablet under the tongue every 5 minutes as needed for Pain, Chest. up to 3 doses in 15 minutes 25 Tablet 11 3 Active buPROPion HCl ER (SR) 150 MG Oral Tablet Extended Release 12 Hour (Wellbutrin SR) TAKE 1 TABLET BY MOUTH EVERY DAY IN THE MORNING AND BEFORE BEDTIME 180 Tablet 3 3 Active Symbicort 160-4.5 MCG/ACT Inhalation AerosolIndications: COPD (chronic obstructive pulmonary disease) ([facility]) Inhale 2 Puffs by mouth in the morning and 2 Puffs before bedtime. 30.6 g 3 3 Active Sertraline HCl 50 MG Oral Tablet (Zoloft)Indications :Adjustment disorder with depressed mood Take 1 Tablet by mouth in the morning. 90 Tablet 3 3 Active Albuterol Sulfate HFA 108 (90 Base) MCG/ACT Inhalation Aerosol SolutionIndications :COPD, group D, by GOLD 2017 classification ([facility]),Bronchitis, complicated INHALE 2 PUFFS BY MOUTH EVERY 4 HOURS NEEDED FOR WHEEZE 18 g 1 3 Active oxygen IN GAS Use 2 L/min(Oxygen) as directed in the morning. With exertion as needed. 0 Active Isosorbide Mononitrate ER 30 MG Oral Tablet Extended Release 24 Hour (Imdur) Take 0.5 Tablets by mouth in the morning. 45 Tablet 3 4 Active Metoprolol Succinate ER 25 MG Oral Tablet Extended Release 24 Hour (toPROL XL)Indications:HTN, goal below 140/90 TAKE 1/2 TABLET BY MOUTH EVERY DAY 45 Tablet 3 4 Active Aspirin Low Dose 81 MG Oral Tablet Delayed Release (aspirin enteric coated)Indications: HTN, goal below 140/90,Stable angina pectoris (HCC) TAKE 1 TABLET BY MOUTH EVERY DAY IN THE MORNING 90 Tablet 3 4 Active Atorvastatin Calcium 20 MG Oral Tablet (Lipitor)Indication s:Dyslipidemia,Dysl ipidemia, goal LDL below 70 TAKE 1 TABLET BY MOUTH EVERY DAY IN THE MORNING 90 Tablet 3 4 Active Benzonatate 100 MG Oral Capsule (Tessalon Perles) Take 1 Capsule by mouth 3 times a day as needed for Cough. Do not cut, crush, or chew. 50 Capsule 1 4 Active Losartan Potassium 50 MG Oral Tablet (Cozaar)Indications :HTN, goal below 140/90 TAKE 1 TABLET BY MOUTH EVERY DAY IN THE MORNING 90 Tablet 2 4 Active Triamcinolone Acetonide 55 MCG/ACT Nasal Aerosol (Nasacort Allergy 24HR) Administer 2 Sprays into each nostril in the morning. 16.9 mL 11 4 Active Tiotropium [place] Monohydrate 1.25 MCG/ACT Inhalation Aerosol Solution (Spiriva Respimat) Inhale 2 Puffs by mouth. 0 Active Phenazopyridine HCl 200 MG Oral Tablet (Pyridium) Take 1 Tablet by mouth every 8 hours as needed for Other (with kidney stent changes). 0 4 Active Triamcinolone Acetonide 0.1 % Mouth/Throat Paste (Kenalog In Orabase)Indications :Mouth sore Apply to inside of cheek 3 times a day . To affected area. 5 g 3 2 02/20/20 24 Discontinued Spiriva Respimat 2.5 MCG/ACT Inhalation Aerosol Solution (Tiotropium [place] Monohydrate) Inhale 2 Puffs by mouth in the morning. 3 Each 0 4 02/20/20 24 Discontinued Hospital, Clinic, or Other Facility Administered Medication Ordered Dose Route Frequency Start Date End Date Status albuterol-ipratropium (DUONEB) inhalation solution 3 mLIndications:Lung infection 3 mL NEBULIZER RESPQID 01/14/2018 Active documented as of this encounter (statuses as of 02/20/2024) Active Problems Problem Noted Date Diagnosed Date [...] as of this encounter (statuses as of 02/20/2024) Resolved Problems Problem Noted Date Diagnosed Date Resolved Date Recurrent major depressive disorder 09/08/2019 10/24/2023 COPD, moderate 09/08/2018 03/25/2019 Overview: Per COPD GOLD Classification Abnormal chest x-ray 05/26/2018 018 Tobacco use disorder 03/27/2013 018 Asthma 04/07/2018 COPD (chronic obstructive pulmonary disease) 03/25/2019 documented as of this encounter (statuses as of 02/20/2024) Immunizations Name Administration Dates Next Due Pneumococcal [...] on file documented as of this encounter Last Filed Vital Signs Vital Sign Reading Time Taken Comments Blood Pressure 96/48 02/20/2024 4:11 PM EDT Pulse - - Temperature - - Respiratory Rate 16 02/20/2024 4:11 PM EDT Oxygen Saturation - - Inhaled Oxygen Concentration - - Weight 64.9 kg (143 lb) 02/20/2024 4:11 PM EDT Height - - Body Mass Index 27.93 01/27/2024 8:12 AM EDT documented in this encounter Progress Notes * Rahul Ellsworth DO - 02/20/2024 4:27 PM EDT Cardiology F/U: 02/20/2024 History of Present Illness: Marilyn Bryant is a 58 year old female here today for routine cardiology follow up. Overall she notes feeling well with a stable degree of shortness of breath that is relatively unchanged. No new were prolonged episodes of chest discontinue to follow with Dr. Shipley of [facility] given her h/o right hydroureteronephrosis with calculus of the kidney and calculus in the proximal right ureter for which she was had several ureter stent exchanges. She was upcoming follow-up appointment soon. Her cardiac history dates back to May,. She had been referred by primary care for an exercise stress echocardiogram due to a complaint of shortness of breath that had proceeded for several months. The stress test was abnormal with suggestion of ischemia in the inferior, inferolateral rainey possibly in the RCA or circumflex coronary territory. She had been treated with medical therapy in the meantime and has done well. History includes: left lung adenocarcinoma diagnosed in April,. She has completed chemotherapy and radiation therapy, and her most recent PET scan revealed favorable progress. She is currently receiving immunotherapy with Durvalumab every 28 days Right hydroureteronephrosis. She has since followed with Dr. Shipley of [place] [facility] and had been found to have calculus the kidney in calculus in the proximal right ureter. Her most recent cystoscopyhad taken place on 04/04/2023 with right retrograde pyelogram and stent exchange, Left Ureteronephroscopy, Left Laser Lithotripsy, Left Stone Basket Extraction of the Stone, and insertion of stent catheter. Last month she had repeat stent placement, which she tolerated without issue Dyspnea COPD 05/28/2023, Abnormal stress echo with stress-induced wall motion abnormalities of the inferior and inferolateral rainey consistent with ischemia in either the RCA or circumflex coronary territory. Review of Systems: See HPI for pertinent positives. All others negative, other than those noted in HPI. Past Medical History: Patient Active Problem List Diagnosis Code HTN, goal below 140/90 I10 DDD (degenerative disc disease), lumbar M51.36 Depression F32.A Tobacco abuse, in remission F17.201 Centrilobular emphysema (HCC) J43.2 Pulmonary nodules R91.8 Cigarette nicotine dependence in remission F17.211 Family history of cancer Z80.9 Night sweats R61 COPD, group D, by GOLD 2017 classification (HCC) J44.9 Malignant neoplasm of lower lobe of left lung (HCC) C34.32 Hilar lymphadenopathy R59.0 Encounter for antineoplastic chemotherapy Z51.11 Food insecurity Z59.41 Past Surgical History: Procedure Laterality Date ANESTH, TUBAL LIGATION 1997 BRONCHOSCOPY, DIAGNOSTIC N/A 05/09/2022 BRONCHOSCOPY DIAGNOSTIC WITH OR WITHOUT WASHING performed by Neel Martin MD at [facility] COLONOSCOPY COLONOSCOPY, DIAGNOSTIC (RECTUM) 09/13/2014 adenomatous polyps, repeat 5 yrs/COLONOSCOPY FLEXIBLE PROXIMAL DIAGNOSTIC performed by Kylee Chadwick DO at ENDOSCOPY [facility] COLONOSCOPY, DIAGNOSTIC (RECTUM) 10/19/2019 adenomatous polyp, diverticulosis, repeat 5 yrs / [facility] DENTAL SURGERY PROCEDURE NEC EGD, FLEXIBLE, DIAGNOSTIC 01/22/2014 ESOPHAGOGASTRODUODENOSCOPY (EGD), FLEXIBLE, TRANSORAL, DIAGNOSTIC performed by Kylee Chadwick DO at ENDOSCOPY [facility] FRAGMENT KIDNEY STONE BY SHOCK WAVE INTERSTITIAL RADIATION APPLICATION, COMPLEX REMOVE GALLBLADDER 1995 SPINE SURGERY PROCEDURE NEC 2014 TOTAL ABD HYSTERECTOMY W/WO REMOVAL OF TUBE(S) 1999 jerzy bso Family History: Family History Problem Relation Age of Onset Alcohol and Other Disorders Associated Sister COPD Sister Heart Disorder Grandmother (Maternal) Cancer Mother at age 53, unknown primary Alcohol and Other Disorders Associated Father at age 59 cirrhosis Diabetes Daughter Asthma Daughter Other (Hepatitis) Daughter The patient does not recall a family history of heart disease in either of her parents Her maternal grandmother had a history of hypertension and CABG She has a younger sister who carries a diagnosis of congestive heart failure but she does not know anything with regards to additional details such as whether not her sister has ever had a heart catheterization, stents, or bypass surgery Social History: Social History Tobacco Use Smoking status: Former Current packs/day: 0.00 Average packs/day: 1 pack/day for 35.0 years (35.0 ttl pk-yrs) Types: Cigarettes Start date: 12/12/1986 Quit date: 12/12/2021 Years since quittin.1 Smokeless tobacco: Never Vaping Use Vaping Use: Never used Substance Use Topics Alcohol use: Yes Comment: socially, few drinks once a week Drug use: Yes Frequency: 3.0 times per week Types: Marijuana Comment: smokes marijuana 3 x week, also uses edibles Allergies: Penicillins and Sulfa antibiotics Medications: Current Outpatient Medications Medication Sig Dispense Refill CALCIUM 1000 + D 1000-800 MG-UNIT PO TABS 2 daily 30 Tab 0 Cyclobenzaprine HCl 10 MG Oral Tablet (Flexeril) TAKE 1 TABLET BY MOUTH AT BEDTIME NEEDED FOR MUSCLE SPASMS. 30 Tablet 1 Ondansetron HCl 8 MG Oral Tablet Take by mouth 1 Tablet every 8 hours as needed for Nausea. 30 Tablet 3 Prochlorperazine Maleate 10 MG Oral Tablet (Compazine) Take by mouth 1 Tablet every 6 hours as needed for Nausea. 60 Tablet 2 Multivitamin Adults Oral Tablet Take 1 Tablet by mouth every evening. 30 Tablet 0 Fluticasone Propionate 50 MCG/ACT Nasal Suspension (Flonase) SPRAY 2 SPRAYS INTO EACH NOSTRIL EVERYDAY 48 mL 3 Nitroglycerin 0.4 MG Sublingual Tablet Sublingual (Nitrostat) Place 1 Tablet under the tongue every5 minutes as needed for Pain, Chest. up to 3 doses in 15 minutes 25 Tablet 11 buPROPion HCl ER (SR) 150 MG Oral Tablet Extended Release 12 Hour (Wellbutrin SR) TAKE 1 TABLET BY MOUTH EVERY DAY IN THE MORNING AND BEFORE BEDTIME 180 Tablet 3 Symbicort 160-4.5 MCG/ACT Inhalation Aerosol Inhale 2 Puffs by mouth in the morning and 2 Puffs before bedtime. 30.6 g 3 Sertraline HCl 50 MG Oral Tablet (Zoloft) Take 1 Tablet by mouth in the morning. 90 Tablet 3 Albuterol Sulfate HFA 108 (90 Base) MCG/ACT Inhalation Aerosol Solution INHALE 2 PUFFS BY MOUTH EVERY 4 HOURS NEEDED FOR WHEEZE 18 g 1 oxygen IN GAS Use 2 L/min(Oxygen) as directed in the morning. With exertion as needed. Isosorbide Mononitrate ER 30 MG Oral Tablet Extended Release 24 Hour (Imdur) Take 0.5 Tablets by mouth in the morning. 45 Tablet 3 Metoprolol Succinate ER 25 MG Oral Tablet Extended Release 24 Hour (toPROL XL) TAKE 1/2 TABLET BY MOUTH EVERY DAY 45 Tablet 3 Aspirin Low Dose 81 MG Oral Tablet Delayed Release (aspirin enteric coated) TAKE 1 TABLET BY MOUTH EVERY DAY IN THE MORNING 90 Tablet 3 Atorvastatin Calcium 20 MG Oral Tablet (Lipitor) TAKE 1 TABLET BY MOUTH EVERY DAY IN THE MORNING 90Tablet 3 Benzonatate 100 MG Oral Capsule (Tessalon Perles) Take 1 Capsule by mouth 3 times a day as needed for Cough. Do not cut, crush, or chew. 50 Capsule 1 Losartan Potassium 50 MG Oral Tablet (Cozaar) TAKE 1 TABLET BY MOUTH EVERY DAY IN THE MORNING 90 Tablet 2 Triamcinolone Acetonide 55 MCG/ACT Nasal Aerosol (Nasacort Allergy 24HR) Administer 2 Sprays into each nostril in the morning. 16.9 mL 11 Tiotropium [place] Monohydrate 1.25 MCG/ACT Inhalation Aerosol Solution (Spiriva Respimat) Inhale 2Puffs by mouth. Phenazopyridine HCl 200 MG Oral Tablet (Pyridium) Take 1 Tablet by mouth every 8 hours as needed for Other (with kidney stent changes). Azithromycin 250 MG Oral Tablet (Zithromax) Take two pills by mouth on first day, then one pill a day RESCUE KIT (Patient not taking: Reported on 02/20/2024) 6 Tablet 2 Current Facility-Administered Medications Medication Dose Route Frequency Provider Last Rate Last Admin albuterol-ipratropium (DUONEB) inhalation solution 3 mL 3 mL Nebulizer Resp MISAELD Eliana Franks, JIMBO 3 mL at 01/14/18 1435 OBJECTIVE/PHYSICAL EXAMINATION: BP 96/48 | Resp 16 | Wt 64.9 kg (143 lb) | BMI 27.93 kg/m | BSA 1.66 m General: no acute distress and stated age Eyes: conjunctiva are pink and non-injected, sclera clear Neck: normal jugular venous pulse, no hepatojugular reflux Chest: normal shape and normal respiratory effort Lungs: clear to auscultation and percussion Cardiac Exam: - regular heart sounds, no murmurs, rubs, or gallops Abdomen: abdomen soft, non-tender, no abnormal masses and no hepatosplenomegaly Musculoskeletal: no gait disturbance, no weakness Extremities: no edema and no cyanosis Neuro: grossly normal exam Psych: appropriate affect and insight. Data: As noted above IMPRESSION: 58 year old female ICD-10-CM 1. Stable angina pectoris (HCC) I20.89 2. HTN, goal below 140/90 I10 3. Dyslipidemia, goal LDL below 70 E78.5 Plan: Continue medical therapy with aspirin, metoprolol, losartan, and atorvastatin. Most recent lipid panel revealed LDL level that was above goal, will therefore refer patient for a repeat lipid panel with plans to titrate atorvastatin for goal LDL less than 70 milligrams/deciliter. Follow Up: Return in about 6 months (around 08/22/2024) for Clinic Visit. | For: Clinic Visit Rahul Ellsworth DO Department of Cardiology This chart was completed in part utilizing [employer] Speech Voice Recognition Software. Grammatical errors, random word insertions, prounoun errors, and incomplete sentences are an occasional consequence of this system due to software limitations, ambient noise, and hardware issues. Any formal questions or concerns about the content, text, or information contained within the body of this dictation should be directly addressed to the provider for clarification. documented in this encounter Nursing Notes * Gladys Zuñiga LPN - 02/20/2024 4:10 PM EDT Examination Room: Name: Marilyn Bryant Date of : 1965 Reason for Visit: Follow up Problems/Concerns: Some sob Interim Hosp(s): denies Chest Pain/SOB: denies MyChart Discussed: ALREADY ACTIVE Patient was instructed to not get up on the exam table until directed and assisted by their provider; patient is to remain seated in the chair/ wheelchair/ exam table for fall prevention and safety reasons. Patient is aware staff will assist stepping down off exam table with personnel. 10 documented in this encounter Plan of Treatment Upcoming Encounters Date Type Department Care Team (Late st Contact Info) Description 03/27/2024 9:30 AM EDT Office Visit Radiation Oncology, [facility] [address] [place] [address] Ernesto Hoffman MD [address] [place], [place] [address] [address] 04/23/2024 11:40 AM EDT Office Visit [facility] [address] [place] [address] [place] [address] Ivy Holden PA-C [address] [place] [address] 05/25/2024 11:00 AM EDT Laboratory Laboratory, [facility] [address] [facility] [place] [id number] [facility] [address] [place] [address] 05/28/2024 11:00 AM EDT Imaging Radiology [facility] [address] [facility] [address] [facility] [place] [address] 06/04/2024 10:45 AM EDT Office Visit Hematology/Oncology [facility] [address] [place] [id number] Igor Sommers MD [address] [place] [address] 08/17/2024 10:20 AM EST Office Visit Pulmonary Medicine, [facility] [address] [facility] [place] [address] Danny Velez MD [address] [facility] [place] [address] 09/14/2024 4:00 PM EST Office Visit Cardiology, [address] [place] [address] Rahul Ellsworth, [address] [facility] [address] Scheduled Orders Name Type Priority Associated Diagnoses Orde r Schedule LIPID PANEL WITH DIRECT LDL IF TG IS HIGH Lab Routine Dyslipidemia, goal LDL below 70 Expected: 02/21/2024, Expires: 02/19/2025 Scheduled Procedures Name Priority Associated Diagnoses Date/Ti [...] as of this encounter Visit Diagnoses Diagnosis Stable angina pectoris (HCC)- Primary HTN, goal below 140/90 Unspecified essential hypertension Dyslipidemia, goal LDL below 70 Other and unspecified hyperlipidemia documented in this encounter Care Teams Surgical Instrument Maker Relationship Specialty Start Date End Date Adina January Blanquita, ANU [facility] [place] [address] PCP - General Physician [employer]ed [employer] Boards Router 11/30/19 documented as of this encounter"
--- OUTSIDE RECORDS SUMMARY | 2024-03-17 00:16 | External Medical Summary | Summary of Care ---
Author Name Unknown Organization [facility] Address [address] [place] [facility] [place] [address] Phone [phone] Care Team Providers Care Internet Sales Consultant Name Role Phone Ivy Holden PA-C Primary Care Provider [phone] Encounter Details Date Type Department Care Team (Late st Contact Info) Description 02/19/2024 Telephone Pulmonary Medicine, [facility] 132 [facility] [place] [address] Danny [facility]elez [facility] [address] [facility] [id number] Allergies Active Allergy Reactions Criticality Noted Date Comments Penicillins Hives 01/26/2013 Sulfa Antibiotics Hives,Rash 01/26/2013 documented as of this encounter (statuses as of 02/19/2024) Medications Medication Sig Dispensed Refills Start Date [...] neoplasm of lower lobe of left lung ([facility]),Hilar lymphadenopathy Take by mouth 1 Tablet every 6 hours as needed for Nausea. 60 Tablet 2 06/12/2022 Active Azithromycin 250 MG Oral Tablet (Zithromax)Indication s:COPD, moderate ([facility]) Take two pills by mouth on first day, then one pill a day RESCUE KIT 6 Tablet 2 08/09/2022 Active Additional Information Patient not taking.Reported on 10/30/2023 Triamcinolone Acetonide 0.1 % Mouth/Throat Paste (Kenalog In Orabase)Indications:M outh sore Apply to inside of cheek 3 times a day . To affected area. 5 g 3 08/09/2022 Active Additional Information Patient not taking.Reported on 11/05/2023 Multivitamin Adults Oral Tablet Take 1 Tablet [...] Inhalation AerosolIndications:CO PD (chronic obstructive pulmonary disease) ([facility]) Inhale 2 Puffs by mouth in the morning and 2 Puffs before bedtime. 30.6 g 3 07/22/2023 Active Sertraline HCl 50 MG Oral Tablet (Zoloft)Indications:A djustment disorder with depressed mood Take 1 Tablet by mouth in the morning. 90 Tablet 3 07/21/2023 Active Albuterol Sulfate HFA 108 (90 Base) MCG/ACT Inhalation Aerosol SolutionIndications:C OPD, group D, by GOLD 2017 classification ([facility]),Bronchitis, complicated INHALE 2 PUFFS BY [...] the morning. 16.9 mL 11 02/09/2024 Active Spiriva Respimat 2.5 MCG/ACT Inhalation Aerosol Solution (Tiotropium [place] Monohydrate) Inhale 2 Puffs by mouth in the morning. 3 Each 0 02/10/2024 Active Hospital, Clinic, or Other Facility Administered Medication Ordered Dose Route Frequency Start Date End Date Status albuterol-ipratropium (DUONEB) inhalation solution 3 mLIndications:Lung infection 3 mL NEBULIZER RESPQID 01/14/2018 Active documented as of this encounter (statuses as of 02/19/2024) Active Problems Problem Noted Date Diagnosed Date Food insecurity 08/27/2022 Overview: Per [facility] Protocol Malignant neoplasm of lower lobe [...] as of this encounter (statuses as of 02/19/2024) Resolved Problems Problem Noted Date Diagnosed Date Resolved Date Recurrent major depressive disorder 09/08/2019 10/24/2023 COPD, moderate 09/08/2018 03/25/2019 Overview: Per COPD GOLD Classification Abnormal chest x-ray 05/26/2018 018 Tobacco use disorder 03/27/2013 018 Asthma 04/07/2018 COPD (chronic obstructive pulmonary disease) 03/25/2019 documented as of this encounter (statuses as of 02/19/2024) Immunizations Name Administration Dates Next Due Pneumococcal [...] encounter Miscellaneous Notes * Telephone Encounter - Iyv Mcadams LPN - 02/19/2024 8:47 AM EDT There is no message in this encounter. documented in this encounter Plan of Treatment Upcoming Encounters Date Type Department Care Team (Late st Contact Info) Description 02/20/2024 4:00 PM EDT Office Visit Cardiology, [facility] 132 [facility] [place] [address] Rahul Ellsworth, 132 [facility] [place] [address] 03/27/2024 9:30 AM EDT Office Visit Radiation Oncology, [facility] [address] [place] [address] Ernesto Hoffman MD [address] [place] [address] [place] [address] 04/23/2024 11:40 AM EDT Office Visit Family Practice [facility] 200 [facility] [place] [address] Ivy Holden PA-C 200 [facility] [place] [address] 05/25/2024 11:00 AM EDT Laboratory Laboratory, [facility] 132 [facility] [place] [id number] [facility] 132 [facility] [place] [address] 05/28/2024 11:00 AM EDT Imaging Radiology [facility]st [facility] 132 [facility] [place] [address] 06/04/2024 10:45 AM EDT Office Visit Hematology/Oncology [facility] [address] [facility] [place] [address] Igor Sommers MD [address] [facility] [place] [address] 08/17/2024 10:20 AM EST Office Visit Pulmonary Medicine, [facility] 132 [facility] [place] [address] Danny Velez MD [address] [place] [address] Scheduled Orders Name Type Priority Associated Diagnoses Orde r Schedule PULMONARY STRESS TESTING Procedures Routine Chronic respiratory failure with hypoxia (HCC) Expected: 02/20/2024, Expires: 03/21/2025 Scheduled Procedures Name Priority Associated Diagnoses Date/Ti [...] as of this encounter Visit Diagnoses Diagnosis Chronic respiratory failure with hypoxia (HCC)- Primary Chronic respiratory failure documented in this encounter Care Teams Internet Sales Consultant Relationship Specialty Start Date End Date Ivy Holden, ANU [address] [place] [address] PCP - General Physician Geotechnical Engineer 11/30/19 documented as of this encounter
--- OUTSIDE RECORDS SUMMARY | 2024-03-17 00:16 | External Medical Summary | Summary of Care ---
Author Name Unknown Organization [facility] Address [address] [facility] [address] Phone [phone] Care Team Providers Care Pediatric Orthodontist Name Role Phone Ivy Holden PA-C Primary Care Provider [phone] Encounter Details Date Type Department Care Team (Late st Contact Info) Description 02/21/2024 Telephone Pulmonary Medicine [facility] [address] [place] [address] Danny Velez MD [address] [place] [address] Allergies Active Allergy Reactions Criticality Noted Date Comments Penicillins Hives 01/26/2013 Sulfa Antibiotics Hives,Rash 01/26/2013 documented as of this encounter (statuses as of 02/21/2024) Medications Medication Sig Dispensed Refills Start Date [...] neoplasm of lower lobe of left lung ([facility]),Hilar lymphadenopathy Take by mouth 1 Tablet every 6 hours as needed for Nausea. 60 Tablet 2 06/12/2022 Active Azithromycin 250 MG Oral Tablet (Zithromax)Indication s:COPD, moderate ([facility]) Take two pills by mouth on first [...] Inhalation AerosolIndications:CO PD (chronic obstructive pulmonary disease) ([facility]) Inhale 2 Puffs by mouth in the morning and 2 Puffs before bedtime. 30.6 g 3 07/22/2023 Active Sertraline HCl 50 MG Oral Tablet (Zoloft)Indications:A djustment disorder with depressed mood Take 1 Tablet by mouth in the morning. 90 Tablet 3 07/21/2023 Active Albuterol Sulfate HFA 108 (90 Base) MCG/ACT Inhalation Aerosol SolutionIndications:C OPD, group D, by GOLD 2017 classification ([facility]),Bronchitis, complicated INHALE 2 PUFFS BY MOUTH EVERY [...] morning. 16.9 mL 11 02/09/2024 Active Tiotropium [place] Monohydrate 1.25 MCG/ACT Inhalation Aerosol Solution (Spiriva [...] as of this encounter (statuses as of 02/21/2024) Active Problems Problem Noted Date Diagnosed Date Food insecurity 08/27/2022 Overview: Per [facility] Protocol Malignant neoplasm of lower lobe [...] as of this encounter (statuses as of 02/21/2024) Resolved Problems Problem Noted Date Diagnosed Date Resolved Date Recurrent major depressive disorder 09/08/2019 10/24/2023 COPD, moderate 09/08/2018 03/25/2019 Overview: Per COPD GOLD Classification Abnormal chest x-ray 05/26/2018 018 Tobacco use disorder 03/27/2013 018 Asthma 04/07/2018 COPD (chronic obstructive pulmonary disease) 03/25/2019 documented as of this encounter (statuses as of 02/21/2024) Immunizations Name Administration Dates Next Due Pneumococcal [...] encounter Miscellaneous Notes * Telephone Encounter - Serenity Rodgers OSA - 02/21/2024 11:51 AM EDT CPAP supply and oxygen order to use with CPAP faxed to [employer] with confirmation. documented in this encounter Plan of Treatment Upcoming Encounters Date Type Department Care Team (Late st Contact Info) Description 03/27/2024 9:30 AM EDT Office Visit Radiation Oncology, [facility] [address] [facility] [address] Ernesto Hoffman MD [address] [place], [place] [address] [address] 04/23/2024 11:40 AM EDT Office Visit [facility] [address] [place] [address] Ivy Holden PA-C [address] [place] [address] 05/25/2024 11:00 AM EDT Laboratory Laboratory, [facility] 132 [place] [address] [facility] [address] 05/28/2024 11:00 AM EDT Imaging Radiology [facility]st [facility] 132 [facility] [place] [address] 06/04/2024 10:45 AM EDT Office Visit Hematology/Oncology [facility] 200 [facility] [place] [address] Igor Sommers MD 200 [facility] [place] [address] 08/17/2024 10:20 AM EST Office Visit Pulmonary Medicine, [facility] 132 [place] [address] Danny Velez MD [address] [place] [address] 09/14/2024 4:00 PM EST Office Visit Cardiology, [facility] 132 [facility] [place] [address] Rahul Ellsworth DO 132 [facility] [address] Scheduled Procedures Name Priority Associated Diagnoses Date/Ti [...] filedocumented as of this encounter Care Teams Pediatric Orthodontist Relationship Specialty Start Date End Date Adina January ANU Juares [address] [place] [address] PCP - General Physician Head Of Mathematics 11/30/19 documented as of this encounter
--- OUTSIDE RECORDS SUMMARY | 2024-03-17 00:16 | External Medical Summary | Summary of Care ---
Author Name Unknown Organization [facility] Address [address] [place] [facility] [place] [place] [address] Phone [phone] Care Team Providers Care Elastic Attacher Coverstitch Name Role Phone Ivy Holden PA-C Primary Care Provider [phone] Encounter Details Date Type Department Care Team (Late st Contact Info) Description 02/19/2024 Telephone Pulmonary Medicine, [facility] 132 [facility] [place] [address] Danny Velez MD [address] [facility] [phone] Allergies Active Allergy Reactions Criticality Noted Date [...] lower lobe of left lung ([facility]),Hilar lymphadenopathy Take by mouth 1 Tablet every 6 hours as needed for Nausea. 60 Tablet 2 06/12/2022 Active Azithromycin 250 MG Oral Tablet (Zithromax)Indication s:COPD, moderate ([facility]) Take two pills by mouth on first [...] PD (chronic obstructive pulmonary disease) ([facility]) Inhale 2 Puffs by mouth in the morning and 2 Puffs before bedtime. 30.6 g 3 07/22/2023 Active Sertraline HCl 50 MG Oral Tablet (Zoloft)Indications:A djustment disorder with depressed mood Take 1 Tablet by mouth in the morning. 90 Tablet 3 07/21/2023 Active Albuterol Sulfate HFA 108 (90 Base) MCG/ACT Inhalation Aerosol SolutionIndications:C OPD, group D, by GOLD 2017 classification ([facility]),Bronchitis, complicated INHALE 2 PUFFS BY MOUTH EVERY [...] Respimat 2.5 MCG/ACT Inhalation Aerosol Solution (Tiotropium [place] Monohydrate) Inhale 2 Puffs by mouth in [...] Diagnosed Date Food insecurity 08/27/2022 Overview: Per [facility] Protocol Malignant neoplasm of lower lobe [...] encounter Miscellaneous Notes * Telephone Encounter - Ivy Mcadams LPN - 02/19/2024 9:15 AM EDT Disregard. This is documented in pt message. * Telephone Encounter - Ivy Mcadams LPN - 02/19/2024 8:47 AM EDT There is no message in this encounter. documented in this encounter Plan of Treatment Upcoming Encounters Date Type Department Care Team (Late st Contact Info) Description 02/20/2024 4:00 PM EDT Office Visit Cardiology, [facility] [place] [address] Rahul Ellsworth, [address] [place] [address] 03/27/2024 9:30 AM EDT Office Visit Radiation Oncology, [facility] [address] [facility] [address] Ernesto Hoffman MD [address] [facility] [place] [address] 04/23/2024 11:40 AM EDT Office Visit Family Practice [facility] 200 [facility] [place] [address] Ivy Holden PA-C 200 [facility] [place] [address] 05/25/2024 11:00 AM EDT Laboratory Laboratory, [address] [phone] [facility] [address] 05/28/2024 11:00 AM EDT Imaging Radiology [facility] 1st [facility] 132 [facility] [place] [address] 06/04/2024 10:45 AM EDT Office Visit Hematology/Oncology [facility] 200 [facility] [place] [phone] Igor Sommers MD 200 [facility] [place] [address] 08/17/2024 10:20 AM EST Office Visit Pulmonary Medicine, [facility] 132 [facility] [place] [address] Danny Velez MD [address] [place] [address] Scheduled Orders Name Type Priority Associated Diagnoses [...] failure documented in this encounter Care Teams Elastic Attacher Coverstitch Relationship Specialty Start Date End Date Adina January Blanquita, ANU [address] [place] [address] PCP - General Physician Research Geologist 11/30/19 documented as of this encounter
--- OUTSIDE RECORDS SUMMARY | 2024-03-17 00:17 | External Medical Summary | Summary of Care ---
Author Name Unknown Organization [facility] Address [address] [facility] [place] [address] Phone [phone] Care Team Providers Care Rn Placement Name Role Phone FanyIvy thakur Blanquita BRENNAN Primary Care Provider [phone] Reason for Referral * Precert (Within 10 days (routine)) - Pending Review Specialty Diagnoses / Procedures Referred By Contalyssa t Referred To Contact Radiology Diagnoses Malignant neoplasm of lower lobe of left lung (HCC) Procedures CT CHEST WO CONTRAST Danny Velez MD [address] [place] [id number] Referral ID Status Reason Start Date Expiration Date V isits Requested Visits Authorized [id number] Pending Review 01/27/2025 999 999 Reason for Visit * Reason Comments Follow Up Here return pulm pat ient requested appt. Oxygen sat. COPD. Encounter Details Date Type Department Care Team (Late st Contact Info) Description 01/27/2024 8:20 AM EDT Office Visit Pulmonary Medicine, [facility] [address] [facility] [place] [address] Danny Velez MD [address] [place] [id number] Malignant neoplasm of lower lobe of left lung (HCC)* Allergies Active Allergy Reactions Criticality Noted Date Comments Penicillins Hives 01/26/2013 Sulfa Antibiotics Hives,Rash 01/26/2013 documented as of this encounter (statuses as of 01/27/2024) Medications Medication Sig Dispensed Refills Start Date [...] AerosolIndications:CO PD (chronic obstructive pulmonary disease) ([facility]) Inhale 2 Puffs by mouth in the morning and 2 Puffs before bedtime. 30.6 g 3 07/22/2023 Active Sertraline HCl 50 MG Oral Tablet (Zoloft)Indications:A djustment disorder with depressed mood Take 1 Tablet by mouth in the morning. 90 Tablet 3 07/21/2023 Active Albuterol Sulfate HFA 108 (90 Base) MCG/ACT Inhalation Aerosol SolutionIndications:C OPD, group D, by GOLD 2017 classification ([facility]),Bronchitis, complicated INHALE 2 PUFFS BY MOUTH EVERY 4 HOURS NEEDED FOR WHEEZE 18 g 1 08/19/2023 Active oxygen IN GAS Use 2 L/min(Oxygen) as directed in the morning. With exertion as needed. 0 Active Triamcinolone Acetonide 55 MCG/ACT Nasal Aerosol (Nasacort Allergy 24HR) Administer 2 Sprays into each nostril in the morning. 16.9 mL 11 10/24/2023 Active Additional Information Patient not taking.Reported on 01/27/2024 Spiriva Respimat 2.5 MCG/ACT Inhalation Aerosol Solution (Tiotropium Woodland Monohydrate) Inhale 2 Puffs by mouth in the morning. 3 Each 0 10/30/2023 Active Isosorbide Mononitrate ER 30 MG Oral [...] THE MORNING 90 Tablet 2 01/14/2024 Active Hospital, Clinic, or Other Facility Administered Medication Ordered Dose Route Frequency Start Date End Date Status albuterol-ipratropium (DUONEB) inhalation solution 3 mLIndications:Lung infection 3 mL NEBULIZER RESPQID 01/14/2018 Active documented as of this encounter (statuses as of 01/27/2024) Active Problems Problem Noted Date Diagnosed Date [...] as of this encounter (statuses as of 01/27/2024) Resolved Problems Problem Noted Date Diagnosed Date Resolved Date Recurrent major depressive disorder 09/08/2019 10/24/2023 COPD, moderate 09/08/2018 03/25/2019 Overview: Per COPD GOLD Classification Abnormal chest x-ray 05/26/2018 018 Tobacco use disorder 03/27/2013 018 Asthma 04/07/2018 COPD (chronic obstructive pulmonary disease) 03/25/2019 documented as of this encounter (statuses as of 01/27/2024) Immunizations Name Administration Dates Next Due Pneumococcal [...] Sign Reading Time Taken Comments Blood Pressure 122/70 01/27/2024 8:12 AM EDT Pulse - - Temperature 36.6 C (97.8 F) 01/27/2024 8:12 AM ED T Respiratory Rate 16 01/27/2024 8:12 AM EDT Oxygen Saturation 91% 01/27/2024 8:12 AM EDT ra-rest Inhaled Oxygen Concentration - - Weight 66.2 kg (146 lb) 01/27/2024 8:12 AM EDT Height 152.4 cm (5') 01/27/2024 8:12 AM EDT Body Mass Index 28.51 01/27/2024 8:12 AM EDT documented in this encounter Progress Notes * Danny Velez MD - 01/27/2024 8:16 AM EDT 01/27/2024 Pulmonary Medicine, [address] [place] [id number] Marilyn Bryant 1965 female 58 year old Attending Physician Documentation: 58-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 Since last evaluation, patient describes steady respiratory symptoms status, compliant with Symbicort and Spiriva Respimat inhaler. Denies excessive use of rescue albuterol therapy. Denies use of nebulized bronchodilator therapy. Occasional use of Tessalon Perles reported. Maintaining physical activity status. Denies recent hospitalizations/emergency room visits.Weight and appetite are stable. Denies hemoptysis. History of hospitalization for COPD exacerbation September 2023 at [facility], admitted for 3 days, had been discharged on tapered dose prednisone and antibiotic therapy. Physical examination significant for class 3 throat, clear lung boyd, regular cardiac rhythm, no evidence of volume overload and nonlateralizing Neuro examination. Data review: Pathology A. Lymph node, left hilar 11L, fine needle aspiration: Category: Malignant Final Interpretation: Metastatic poorly differentiated non-small cell carcinoma. Comment: The cellblock preparation shows similar findings with clusters of malignant tumor cells that show marked nuclear pleomorphism with irregular nuclear contours and conspicuous nucleoli, with grniyxqijtck-cq-skcjnfhcvi cytoplasm and associated inflammatory cells. The tumor cells are similarto that seen in the lung biopsy (Part B). The findings support a metastatic poorly differentiated non-smallcell carcinoma, favoring an adenocarcinoma or pleomorphic carcinoma of the lung. Molecular and PD-L1 testing S/p definitive chemoRT to left lung, 6000 cGy/30fx, completed 08/10/2022, see radiation summary below for details. Was on immunotherapy, Durvalumab q 28 days, with Dr. Sommers Patient had been following with the pulmonary with screening low-dose CT chest, following Left lower lobe mass in 2020, no PET activity in July 2021. Follow- up CT February 2022 that showed increase in the left lower lobe mass. This was followed by PET-CT April this year that showed uptake in the left lower lobe mass as well as left hilar region, suspicious. She underwent bronchoscopy/EBUS with Dr. Hull 05/09/2022. Airway examination was normal. 4L, 4R and level 7 nodes were not visualized to bx. Level 11R node was biopsied. Patient completed nocturnal oximetry on CPAP without home oxygen, results show evidence of desaturation at night while using CPAP therapy without oxygen. Patient was advised to continue using oxygen therapy bleed-in with CPAP therapy. Importance of maintaining physically active lifestyle was discussed. Pulmonary medicine follow-up recommended in 6 months. Patient will continue periodic follow-up and radiologic surveillance per hematology oncology/radiation oncology recommendations. Patient was advised to contact the office with any change in symptoms status. 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 Oxygen sat. COPD. HPI: Nursing Notes: Ariela Zarate LPN 01/27/24 0817 Signed Chief Complaint Patient presents with Follow Up Here return pulm patient requested appt. Oxygen sat. COPD. Interm History/Respiratory Symptoms Cough: yes - whitish-nguyen Hemoptysis: no Sinus Symptoms: congestion,headache Hospitalizations: 11/06=-COPD ED Trips: 11/06-COPD Triggers: no Nocturnal: sleeps with one pillow CPAP/BiPAP/O2: CPAP and oxygen at night. Flu Vaccine: 2022 Pneumovax: 2017 Prevnar: 2016 COVID 19: none. Mmrc Cat Question 01/26/2024 11:04 AM EDT - Filed by Patient When do you become breathless? (1) I get short of breath when hurrying on level ground How frequently do you cough? (3) Do you have phlegm in your chest? (3) Is your chest tight? (1) How breathless do you become when walking up a hill or steps? (1) How limited are you doing activities at home? (1) How confident are you leaving home with your lung condition? (0) - I am confident leaving my home despite my condition How soundly do you sleep? (1) How much energy do you have? (3) Total MMRC Score (range: 0 - 4) 1 Total CAT Score (range: 0 - 40) 13 Myc Visit Accident Related Question Question 01/26/2024 11:04 AM EDT - Filed by Patient Is this visit related to an accident? (i.e work, motor vehicle) No Travel Screening Question 01/27/2024 8:04 AM EDT - Filed by Patient Do you have any of the following new or worsening symptoms? None of these Have you recently been in contact with someone who was sick? No / Unsure Objective Filed Vitals: 01/27/24 0812 BP: 122/70 Resp: 16 Temp: 36.6 C (97.8 F) TempSrc: Tympanic SpO2: 91% Weight: 66.2 kg (146 lb) Height: 1.524 m (5') Exam: Const: No signs of acute distress present. Head/Face: Normal on inspection. Eyes: Conjunctivae clear. Pupils equal round and reactive to light. ENMT: Oropharynx: No erythema, exudate or masses. Posterior pharynx is normal. Neck: Supple and symmetric. Resp: Respiratory examination as outlined above CV: Rate is regular. Rhythm is regular. No heart murmur appreciated. Extremities: No edema of the lower limbs bilaterally. Skin: Skin is warm and dry. Neuro: Coordination normal. No involuntary movement. Psych: Patient's attitude is cooperative. Mood is normal. Affect is normal. Tests reviewed with the patient: CT CHEST/ABDOMEN/PELVIS WITH IV CONTRAST WITH ORAL CONTRAST Result Date: 11/24/2023 IMPRESSION No progressive disease Available Radiologic data was reviewed by me in PACS. The images were shown to the patient and findings were discussed with the patient. HOME MEDICATIONS: Losartan Potassium 50 MG Oral Tablet (Cozaar) Benzonatate 100 MG Oral Capsule (Tessalon Perles) Aspirin Low Dose 81 MG Oral Tablet Delayed Release (aspirin enteric coated) Atorvastatin Calcium 20 MG Oral Tablet (Lipitor) Metoprolol Succinate ER 25 MG Oral Tablet Extended Release 24 Hour (toPROL XL) Isosorbide Mononitrate ER 30 MG Oral Tablet Extended Release 24 Hour (Imdur) Spiriva Respimat 2.5 MCG/ACT Inhalation Aerosol Solution (Tiotropium Woodland Monohydrate) oxygen IN GAS Albuterol Sulfate HFA 108 (90 Base) MCG/ACT Inhalation Aerosol Solution buPROPion HCl ER (SR) 150 MG Oral Tablet Extended Release 12 Hour (Wellbutrin SR) Symbicort 160-4.5 MCG/ACT Inhalation Aerosol Sertraline HCl 50 MG Oral Tablet (Zoloft) Nitroglycerin 0.4 MG Sublingual Tablet Sublingual (Nitrostat) Fluticasone Propionate 50 MCG/ACT Nasal Suspension (Flonase) Multivitamin Adults Oral Tablet Ondansetron HCl 8 MG Oral Tablet Prochlorperazine Maleate 10 MG Oral Tablet (Compazine) Cyclobenzaprine HCl 10 MG Oral Tablet (Flexeril) CALCIUM 1000 + D 1000-800 MG-UNIT PO TABS Triamcinolone Acetonide 55 MCG/ACT Nasal Aerosol (Nasacort Allergy 24HR) Azithromycin 250 MG Oral Tablet (Zithromax) Triamcinolone Acetonide 0.1 % Mouth/Throat Paste (Kenalog In Orabase) albuterol-ipratropium (DUONEB) inhalation solution 3 mL ROS: No reported history of Hemoptysis, Hematemesis, Melena No reported history of Dysuria, Hematuria, Flank Pain No reported history of chronic headache, seizures No reported history of Fall or trauma . No reported history of recent change in weight or appetite. Past Medical History: Diagnosis Date Benign neoplasm of colon 09/13/2014 adenomatous polyps, repeat 5 yrs Centrilobular emphysema (HCC) 09/08/2018 Chicken pox 1998 age 34 COPD (chronic obstructive pulmonary disease) (HCC) COPD, moderate (HCC) 09/08/2018 DDD (degenerative disc disease), lumbar 05/07/2013 Depression Family history of cancer 03/10/2019 Mother with unknown primary HTN, goal below 140/90 Hypertension Lung cancer (HCC) Pulmonary nodules 09/08/2018 Varicella pneumonia In her 30s. Required mechanical ventilation x 1 week at [facility]. Past Surgical History: Procedure Laterality Date ANESTH, TUBAL LIGATION 1997 BRONCHOSCOPY, DIAGNOSTIC N/A 05/09/2022 BRONCHOSCOPY DIAGNOSTIC WITH OR WITHOUT WASHING performed by Neel Martin MD at [facility]COPY [facility] COLONOSCOPY COLONOSCOPY, DIAGNOSTIC (RECTUM) 09/13/2014 adenomatous polyps, repeat 5 yrs/COLONOSCOPY FLEXIBLE PROXIMAL DIAGNOSTIC performed by Kylee Chadwick DO at ENDOSCOPY [facility] [address] COLONOSCOPY, DIAGNOSTIC (RECTUM) 10/19/2019 adenomatous polyp, diverticulosis, repeat 5 yrs / [facility] DENTAL SURGERY PROCEDURE NEC EGD, FLEXIBLE, DIAGNOSTIC 01/22/2014 ESOPHAGOGASTRODUODENOSCOPY (EGD), FLEXIBLE, TRANSORAL, DIAGNOSTIC performed by Kylee Chadwick DO at ENDOSCOPY [facility] [address] FRAGMENT KIDNEY STONE BY SHOCK WAVE INTERSTITIAL RADIATION APPLICATION, COMPLEX REMOVE GALLBLADDER 1995 SPINE SURGERY PROCEDURE NEC 2014 TOTAL ABD HYSTERECTOMY W/WO REMOVAL OF TUBE(S) 1999 [facility] Social History Socioeconomic History Marital status: Number of children: 2 Occupational History 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 Employer: [employer] Comment: [employer] 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 [employer] Tobacco Use Smoking status: Former Current packs/day: 0.00 Average packs/day: 1 pack/day for 35.0 years (35.0 ttl pk-yrs) Types: Cigarettes Start date: 12/12/1986 Quit date: 12/12/2021 Years since quittin.1 Smokeless tobacco: Never Vaping Use Vaping Use: Never used Substance and Sexual Activity Alcohol use: Yes Comment: socially, few drinks once a week Drug use: Yes Frequency: 3.0 times per week Types: Marijuana Comment: smokes marijuana 3 x week, also uses edibles Sexual activity: Not Currently Other Topics Concern Bike Helmet Yes Seat Belt Yes Social History Narrative 2 cats in her home. No mold. Social Determinants of Health Food Insecurity: Food Insecurity Present (10/18/2023) Hunger Vital Sign Worried About Running Out of Food in the Last Year: Sometimes true Ran Out of Food in the Last Year: Never true Family History Problem Relation Age of Onset Alcohol and Other Disorders Associated Sister COPD Sister Heart Disorder Grandmother (Maternal) Cancer Mother at age 53, unknown primary Alcohol and Other Disorders Associated Father at age 59 cirrhosis Diabetes Daughter Asthma Daughter Other (Hepatitis) Daughter Review of patient's allergies indicates: Allergen Reactions Penicillins Hives Sulfa Antibiotics Hives and Rash documented in this encounter Nursing Notes * Ariela Zarate LPN - 01/27/2024 8:14 AM EDT Chief Complaint Patient presents with Follow Up Here return pulm patient requested appt. Oxygen sat. COPD. Interm History/Respiratory Symptoms Cough: yes - whit[place]-nguyen Hemoptysis: no Sinus Symptoms: congestion,headache Hospitalizations: 11/06=-COPD ED Trips: 11/06-COPD Triggers: no Nocturnal: sleeps with one pillow CPAP/BiPAP/O2: CPAP and oxygen at night. Flu Vaccine: 2022 Pneumovax: 2017 Prevnar: 2016 COVID 19: none. Mmrc Cat Question 01/26/2024 11:04 AM EDT - Filed by Patient When do you become breathless? (1) I get short of breath when hurrying on level ground How frequently do you cough? (3) Do you have phlegm in your chest? (3) Is your chest tight? (1) How breathless do you become when walking up a hill or steps? (1) How limited are you doing activities at home? (1) How confident are you leaving home with your lung condition? (0) - I am confident leaving my home despite my condition How soundly do you sleep? (1) How much energy do you have? (3) Total MMRC Score (range: 0 - 4) 1 Total CAT Score (range: 0 - 40) 13 Myc Visit Accident Related Question Question 01/26/2024 11:04 AM EDT - Filed by Patient Is this visit related to an accident? (i.e work, motor vehicle) No Travel Screening Question 01/27/2024 8:04 AM EDT - Filed by Patient Do you have any of the following new or worsening symptoms? None of these Have you recently been in contact with someone who was sick? No / Unsure documented in this encounter Plan of Treatment Upcoming Encounters Date Type Department Care Team (Late st Contact Info) Description 02/20/2024 4:00 PM EDT Office Visit Cardiology, [facility] [address] [place] [address] Rahul Ellsworth DO [address] [place] [address] 03/27/2024 9:30 AM EDT Office Visit Radiation Oncology, [facility] [address] [place] [address] Ernesto Hoffman MD [address] [place] [address] [place] [address] 04/23/2024 11:40 AM EDT Office Visit Family Practice [facility] [address] [place] [address] [place] [address] Ivy Holden PA-C [address] [facility] [place] [address] 05/25/2024 11:00 AM EDT Laboratory Laboratory, [facility] [address] [facility] [place] [phone] [facility] [address] [facility] [place] [address] 05/28/2024 11:00 AM EDT Imaging Radiology [facility] [address] [facility] [address] [facility] [place] [address] 06/04/2024 10:45 AM EDT Office Visit Hematology/Oncology [facility] [address] [facility] [place] [phone] Igor Sommers MD [address] [place] [address] 08/17/2024 10:20 AM EST Office Visit Pulmonary Medicine, [facility] [address] [facility] [place] [address] Danny Velez MD [address] [place] [address] Scheduled Orders Name Type Priority Associated Diagnoses Orde r Schedule CT CHEST WO CONTRAST Medical Imaging Routine Malignant neoplasm of lower lobe of left lung (HCC) Expected: 01/27/2025, Expires: 02/25/2025 Scheduled Procedures Name Priority Associated Diagnoses Date/Ti me COLONOSCOPY FLEXIBLE PROXIMAL DIAGNOSTIC Recall History of colon polyps Health Maintenance Due Date Last Done Comments Hepatitis B (1 of 3 - 19+ 3-dose series) 1983 *ADVANCE DIRECTIVE NOT ON FILE 03/28/2019 Mammogram 06/20/2022 06/20/2021, 06/14, 04/09/2019, Additional history exists COVID-19 Vaccine ( - 2022- season) 2023 DTaP,Tdap,and Td Vaccines (2 - Td or Tdap) 03/02/2024 03/02/2014 GFR 08/05/2024 08/05/2023, 06/15, 06/06/2023, Additional history exists COLONOSCOPY-EVERY 5 YRS AGES 18-100 10/19/2024 10/19/2019, 09/13/2014, 09/13/2014 O2 ASSESSMENT COMPLETED IN PAST YEAR FOR [...] as of this encounter Visit Diagnoses Diagnosis Malignant neoplasm of lower lobe of left lung (HCC)- Primary documented in this encounter Care Teams Rn Placement Relationship Specialty Start Date End Date Ivy Holden PA-C [address] [place] [address] PCP - General Physician Hyster Driver 11/30/19 documented as of this encounter"
--- OUTSIDE RECORDS SUMMARY | 2024-03-17 00:17 | External Medical Summary | Summary of Care ---
Author Name Unknown Organization [facility] Address [address] [place] [address] Phone [phone] Care Team Providers Care Landfill Grader Name Role Phone FanyofeIvy PA-C Primary Care Provider [phone] Encounter Details Date Type Department Care Team (Late st Contact Info) Description 02/10/2024 Orders Only Outcomes Research Department [address] [place] [address] Amparo Amaya CHRA [employer] [facility] Other*[id number] Allergies Active Allergy Reactions Criticality Noted Date Comments Penicillins Hives 01/26/2013 Sulfa Antibiotics Hives,Rash 01/26/2013 documented as of this encounter (statuses as of 02/10/2024) Medications Medication Sig Dispensed Refills Start Date [...] MG Oral Tablet (Zithromax)Indication s:COPD, moderate ([facility]) Take two pills by mouth on first [...] AerosolIndications:CO PD (chronic obstructive pulmonary disease) ([facility]) Inhale 2 Puffs by mouth in the morning and 2 Puffs before bedtime. 30.6 g 3 07/22/2023 Active Sertraline HCl 50 MG Oral Tablet (Zoloft)Indications:A djustment disorder with depressed mood Take 1 Tablet by mouth in the morning. 90 Tablet 3 07/21/2023 Active Albuterol Sulfate HFA 108 (90 Base) MCG/ACT Inhalation Aerosol SolutionIndications:C OPD, group D, by GOLD 2017 classification ([facility]),Bronchitis, complicated INHALE 2 PUFFS BY MOUTH EVERY [...] the morning. 16.9 mL 11 02/09/2024 Active Hospital, Clinic, or Other Facility Administered Medication Ordered Dose Route Frequency Start Date End Date Status albuterol-ipratropium (DUONEB) inhalation solution 3 mLIndications:Lung infection 3 mL NEBULIZER RESPQID 01/14/2018 Active documented as of this encounter (statuses as of 02/10/2024) Active Problems Problem Noted Date Diagnosed Date Food insecurity 08/27/2022 Overview: Per [facility] Protocol Malignant neoplasm of lower [...] as of this encounter (statuses as of 02/10/2024) Resolved Problems Problem Noted Date Diagnosed Date Resolved Date Recurrent major depressive disorder 09/08/2019 10/24/2023 COPD, moderate 09/08/2018 03/25/2019 Overview: Per COPD GOLD Classification Abnormal chest x-ray 05/26/2018 018 Tobacco use disorder 03/27/2013 018 Asthma 04/07/2018 COPD (chronic obstructive pulmonary disease) 03/25/2019 documented as of this encounter (statuses as of 02/10/2024) Immunizations Name Administration Dates Next Due Pneumococcal [...] 02/20/2024 4:00 PM EDT Office Visit Cardiology, [facility] [address] [place] [address] Rahul Ellsworth DO [address] [place] [address] 03/27/2024 9:30 AM EDT Office Visit Radiation Oncology, [facility] [address] [place] [address] Ernesto Hoffman MD [address] [place] [address] 04/23/2024 11:40 AM EDT Office Visit Family Practice [place] [place] [address] [place] [address] Ivy Holden PA-C [address] [place] [address] 05/25/2024 11:00 AM EDT [facility] [address] [place] [phone] Ladonna Dumass [address] [place] [address] 05/28/2024 11:00 AM EDT Imaging Radiology [facility] 1st [facility] [address] [place] [address] 06/04/2024 10:45 AM EDT Office Visit Hematology/Oncology [facility] 200 [facility] [place] [phone] Igor Sommers MD [address] [place] [address] 08/17/2024 10:20 AM EST Office Visit Pulmonary Medicine, [facility] [address] [place] [address] Danny Velez MD [address] [facility] [place] [address] Scheduled Orders Name Type Priority Associated Diagnoses Orde r Schedule MYCODE SUBSEQUENT ADULT Lab Routine [facility] Other*[id number] Every 6 Months for 2 Occurrences starting 02/10/2024 until 03/01/2025 Scheduled Procedures Name Priority Associated Diagnoses Date/Ti [...] as of this encounter Visit Diagnoses Diagnosis [facility] Other*[id number] documented in this encounter Care Teams Landfill Grader Relationship Specialty Start Date End Date Ivy Holden PA-C [address] [place] [address] PCP - General Physician Supervisor Wound 11/30/19 documented as of this encounter
--- OUTSIDE RECORDS SUMMARY | 2024-03-17 00:17 | External Medical Summary | Summary of Care ---
Author Name Unknown Organization [facility] Address [address] [facility] [place] [address] Phone [phone] Care Team Providers Care Light Industrial Name Role Phone Ivy Holden PA-C Primary Care Provider [phone] Reason for Visit * Reason Onset Date Comments Medication Refill 02/07/2024 Spiriva Respim at 2.5 MCG/ACT Inhalation Aerosol Solution (Tiotropium [place] Monohydrate) Encounter Details Date Type Department Care Team (Late st Contact Info) Description 02/07/2024 Refill Pulmonary Medicine [facility] [address] [place] [phone] Danny Forrest MD [address] [place] [address] Allergies Active Allergy Reactions Criticality Noted Date [...] 250 MG Oral Tablet (Zithromax)Indicatio ns:COPD, moderate (HCC) Take two pills by mouth on first day, then one pill a day RESCUE KIT 6 Tablet 2 08/09/2022 Active Additional Information Patient not taking.Reported on 10/30/2023 Triamcinolone Acetonide 0.1 % Mouth/Throat Paste (Kenalog In [place])Indications: Mouth sore Apply to inside of cheek 3 [...] 3 07/22/2023 Active Symbicort 160-4.5 MCG/ACT Inhalation AerosolIndications:C OPD (chronic obstructive pulmonary disease) ([facility]) Inhale 2 Puffs by mouth in the morning and 2 Puffs before bedtime. 30.6 g 3 07/22/2023 Active Sertraline HCl 50 MG Oral Tablet (Zoloft)Indications: Adjustment disorder with depressed mood Take 1 Tablet by mouth in the morning. 90 Tablet 3 07/21/2023 Active Albuterol Sulfate HFA 108 (90 Base) MCG/ACT Inhalation Aerosol SolutionIndications: COPD, group D, by GOLD 2017 classification ([facility]),Bronchitis, complicated INHALE 2 PUFFS BY MOUTH [...] coated)Indications:H TN, goal below 140/90,Stable angina pectoris ([facility]) TAKE 1 TABLET BY MOUTH EVERY [...] THE MORNING 90 Tablet 2 01/14/2024 Active Spiriva Respimat 2.5 MCG/ACT Inhalation Aerosol Solution (Tiotropium [place] Monohydrate) Inhale 2 Puffs by mouth in the morning. 3 Each 0 02/10/2024 Active Spiriva Respimat 2.5 MCG/ACT Inhalation Aerosol Solution (Tiotropium [place] Monohydrate) Inhale 2 Puffs by mouth in the morning. 3 Each 0 10/30/2023 02/07/20 24 Discontinu ed(Refill) Hospital, Clinic, or Other [...] encounter Miscellaneous Notes * Telephone Encounter - Danny Forrest MD - 02/10/2024 3:49 PM EDT Signed Prescriptions: Disp Refills Spiriva Respimat 2.5 MCG/ACT Inhalation Ae*3 Each 0 Sig: Inhale 2 Puffs by mouth in the morning.Authorizing Provider: DANNY FORREST documented in this encounter Plan of Treatment Upcoming Encounters Date Type Department Care Team (Late st Contact Info) Description 02/20/2024 4:00 PM EDT Office Visit Cardiology, [facility] 132 [facility] [place] [address] Rahul Ellsworth DO [address] [place] [address] 03/27/2024 9:30 AM EDT Office Visit Radiation Oncology, [facility] [address] [place] [address] Ernesto Hoffman MD [address] [place] [address] 04/23/2024 11:40 AM EDT Office Visit Family Practice [facility] [address] [place] [address] Ivy Holden PA-C [facility] [place] [address] 05/25/2024 11:00 AM EDT Laboratory Laboratory, [facility] 132 [facility] [place] [phone] [place] [facility] 132 [facility] [place] [address] 05/28/2024 11:00 AM EDT Imaging [facility] [address] [facility] [place] [address] 06/04/2024 10:45 AM EDT Office Visit Hematology/Oncology [facility] 200 [facility] [place] [phone] Igor Sommers MD [facility] [place] [address] 08/17/2024 10:20 AM EST Office Visit Pulmonary Medicine, [facility] 132 [facility] [place] [address] Danny Forrest MD [address] [place] [address] Scheduled Procedures Name Priority Associated Diagnoses Date/Ti [...] filedocumented as of this encounter Care Teams Light Industrial Relationship Specialty Start Date End Date Adina January Blanquita, ANU [address] [place] [address] PCP - General Physician Passenger Screener 11/30/19 documented as of this encounter
--- OUTSIDE RECORDS SUMMARY | 2024-03-17 00:17 | External Medical Summary | Summary of Care ---
Author Name Unknown Organization [facility] Address [address] [facility] [place] [address] Phone [phone] Care Team Providers Care Behavioral Health Case Manager Name Role Phone Ivy Holden PA-C Primary Care Provider [phone] Encounter Details Date Type Department Care Team (Late st Contact Info) Description 02/19/2024 Telephone Pulmonary Medicine, [facility] 132 [facility] [place] [address] Danny Velez MD [address] [facility] [phone] Allergies Active Allergy Reactions Criticality Noted Date [...] neoplasm of lower lobe of left lung ([facility]),Hilar lymphadenopathy Take by mouth 1 Tablet every 6 hours as needed for Nausea. 60 Tablet 2 06/12/2022 Active Azithromycin 250 MG Oral Tablet (Zithromax)Indication s:COPD, moderate ([facility]) Take two pills by mouth on [...] Inhalation AerosolIndications:CO PD (chronic obstructive pulmonary disease) ([facility]) Inhale 2 Puffs by mouth in the morning and 2 Puffs before bedtime. 30.6 g 3 07/22/2023 Active Sertraline HCl 50 MG Oral Tablet (Zoloft)Indications:A djustment disorder with depressed mood Take 1 Tablet by mouth in the morning. 90 Tablet 3 07/21/2023 Active Albuterol Sulfate HFA 108 (90 Base) MCG/ACT Inhalation Aerosol SolutionIndications:C OPD, group D, by GOLD 2017 classification ([facility]),Bronchitis, complicated INHALE 2 PUFFS BY MOUTH [...] Respimat 2.5 MCG/ACT Inhalation Aerosol Solution (Tiotropium [place] Monohydrate) Inhale 2 Puffs by mouth in [...] Diagnosed Date Food insecurity 08/27/2022 Overview: Per [facility] Protocol Malignant neoplasm of lower lobe [...] 02/20/2024 4:00 PM EDT Office Visit Cardiology, [facility] [address] [place] [address] Rahul Ellsworth DO 132 [facility] [place] [address] 03/27/2024 9:30 AM EDT Office Visit Radiation Oncology, [facility] [address] [place] [address] Ernesto Hoffman MD [address] [place] [address] [place] [address] 04/23/2024 11:40 AM EDT Office [facility] [place] [address] [place] [address] Ivy Holden PA-C [address] [place] [address] 05/25/2024 11:00 AM EDT Laboratory Laboratory, [facility] 132 [facility] [place] [phone] [facility] [address] [facility] [place] [address] 05/28/2024 11:00 AM EDT Imaging [facility] 132 [facility] [place] [address] 06/04/2024 10:45 AM EDT Office Visit Hematology/Oncology [facility] [address] [facility] [place] [phone] Igor Sommers MD [address] [facility] [place] [address] 08/17/2024 10:20 AM EST Office Visit Pulmonary Medicine, [facility] 132 [facility] [place] [address] Danny Velez MD [address] [place] [address] Scheduled Orders Name Type Priority Associated Diagnoses [...] Additional history exists COVID-19 Vaccine ( - 2022-24 season) 2023 DTaP,Tdap,and Td Vaccines (2 - [...] failure documented in this encounter Care Teams Behavioral Health Case Manager Relationship Specialty Start Date End Date Adina Ivy ANU [place] [address] [place] [address] PCP - General Physician Concrete Carpenter 11/30/19 documented as of this encounter
--- OUTSIDE RECORDS SUMMARY | 2024-03-17 00:18 | External Medical Summary | Summary of Care ---
Author Name Unknown Organization [facility] Address [address] [facility] [address] Phone [phone] Care Team Providers Care Hydrology Professor Name Role Phone FanyIvy thakur Blanquita BRENNAN Primary Care Provider [phone] Reason for Referral * Precert (Within 10 days (routine)) - Pending Review Specialty Diagnoses / Procedures Referred By Contalyssa t Referred To Contact Radiology Diagnoses Malignant neoplasm of lower lobe of left lung (HCC) Procedures CT CHEST WO CONTRAST Danny Velez MD [address] [place] [address] Referral ID Status Reason Start Date Expiration Date V isits Requested Visits Authorized [id number] Pending Review 01/27/2025 999 999 Reason for Visit * Reason Comments Follow Up Here return pulm pat ient requested appt. Oxygen sat. COPD. Encounter Details Date Type Department Care Team (Late st Contact Info) Description 01/27/2024 8:20 AM EDT Office Visit Pulmonary Medicine, [facility] 132 [facility] [place] [address] Danny Velez MD [address] [place] [place] [phone] Malignant neoplasm of lower lobe of left [...] Inhalation AerosolIndications:CO PD (chronic obstructive pulmonary disease) ([facility]) Inhale 2 Puffs by mouth in the morning and 2 Puffs before bedtime. 30.6 g 3 07/22/2023 Active Sertraline HCl 50 MG Oral Tablet (Zoloft)Indications:A djustment disorder with depressed mood Take 1 Tablet by mouth in the morning. 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 The tumor [...] nocturnal oximetry on CPAP without home oxygen, although results are not available for review. Results will be followed up as they are available. Oxygen therapy will be discontinuedif stable oxygen saturation noted while patient is on CPAP therapy. Importance of maintaining physically active lifestyle was discussed. Pulmonary medicine follow-up recommended in 6 months. Patient will continue periodic follow-up and radiologic surveillance per hematology oncology/radiation oncology recommendations. Patient was advised to contact the office with any change in symptoms status. 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 | For: Clinic Visit | Check-out note: Artward[employer] worker 35 Pack yr smoker , Quit 22 months ago AdenoCa Left Lung ([employer] 2021) S/p XRT (Dr Hoffman)+ Chemo (Dr Sommers) COPD Recent AECOPD ([facility] x 5 days) OSAS, on CPAP Noct Oxygen, (Pending review of NPOX on CPAP only ) Plan: Repeat CT Chest noncontrast in 1 year C/w Symbicort + Spiriva (switched to Respimat) C/w PRN Albuterol Nebs F/u results of NPOX on CPAP, no Oxygen to reassess need for continuing Nocturnal Oxygen F/u 6 months Danny Velez MD Subjective [...] Respimat 2.5 MCG/ACT Inhalation Aerosol Solution (Tiotropium [place] Monohydrate) oxygen IN GAS Albuterol Sulfate HFA [...] Required mechanical ventilation x [address] [facility]. Past Surgical History: Procedure Laterality Date ANESTH, TUBAL LIGATION 1997 BRONCHOSCOPY, DIAGNOSTIC N/A 05/09/2022 BRONCHOSCOPY DIAGNOSTIC WITH OR WITHOUT WASHING performed by Neel Martin MD at [facility] COLONOSCOPY COLONOSCOPY, DIAGNOSTIC (RECTUM) 09/13/2014 adenomatous polyps, repeat 5 yrs/COLONOSCOPY FLEXIBLE PROXIMAL DIAGNOSTIC performed by Kylee Chadwick DO at [facility]OSCOPY [facility] COLONOSCOPY, DIAGNOSTIC (RECTUM) 10/19/2019 adenomatous polyp, diverticulosis, repeat 5 yrs / [facility] DENTAL SURGERY PROCEDURE NEC EGD, FLEXIBLE, DIAGNOSTIC 01/22/2014 ESOPHAGOGASTRODUODENOSCOPY (EGD), FLEXIBLE, TRANSORAL, DIAGNOSTIC performed by Kylee Chadwick DO at ENDOSCOPY [facility] FRAGMENT KIDNEY STONE BY SHOCK WAVE INTERSTITIAL RADIATION APPLICATION, COMPLEX REMOVE GALLBLADDER 1995 SPINE SURGERY PROCEDURE NEC 2014 TOTAL ABD HYSTERECTOMY W/WO REMOVAL OF TUBE(S) 1999 jerzy bso Social History Socioeconomic History Marital status: Number of children: 2 Occupational History 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 Employer: [employer] Comment: [employer] 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 [employer] Tobacco Use Smoking status: Former Current packs/day: [...] 02/20/2024 4:00 PM EDT Office Visit Cardiology, [facility] 132 [facility] [place] [address] Rahul Ellsworth DO [address] [place] [address] 03/27/2024 9:30 AM EDT Office Visit Radiation Oncology, [facility] [address] [place] [address] Ernesto Hoffman MD [address] [place] [address] [place] [address] 04/23/2024 11:40 AM EDT Office Visit Family Practice [facility] [place] [address] [place] [address] Ivy Holden PA-C [address] [place] [address] 05/25/2024 11:00 AM EDT Laboratory Laboratory, [facility] 132 [facility] [place] [phone] [facility] 132 [facility] [place] [address] 05/28/2024 11:00 AM EDT Imaging Radiology [facility] 1st Floor, [place] 132 [facility] [place] [address] 06/04/2024 10:45 AM EDT Office Visit Hematology/Oncology [facility] [address] [place] [phone] Igor Sommers MD [address] [place] [address] 08/17/2024 10:20 AM EST Office Visit Pulmonary Medicine, [facility] 132 [facility] [place] [address] Danny Velez MD [address] [facility] [address] Scheduled Orders Name Type Priority Associated Diagnoses [...] ASSESSMENT COMPLETED IN PAST YEAR FOR COPD 12/05/2024 12/05/2023 Albumin/Creatinine Ratio 10/19/2025 10/19/2022 Diabetes Screening 08/05/2026 [...] Primary documented in this encounter Care Teams Hydrology Professor Relationship Specialty Start Date End Date Ivy Holden PA-C [address] [place], [place] [address] PCP - General Physician Team Cdl Driver 11/30/19 documented as of this encounter"
--- OUTSIDE RECORDS SUMMARY | 2024-03-17 00:18 | External Medical Summary | Summary of Care ---
Author Name Unknown Organization [facility] Address [address] [place] [address] Phone [phone] Care Team Providers Care Automobile Bumper Straightener Name Role Phone Ivy Holden PA-C Primary Care Provider [phone] Reason for Visit * Reason Comments eRx-Medication Refill Encounter Details Date Type Department Care Team (Late st Contact Info) Description 01/13/2024 Refill Family Practice [facility] [address] [place] [address] Ivy Holden PA-C [address] [facility] [place] [address] HTN, goal below 140/90 Allergies Active Allergy Reactions Criticality Noted Date Comments Penicillins Hives 01/26/2013 Sulfa Antibiotics Hives,Rash 01/26/2013 documented as of this encounter (statuses as of 01/14/2024) Medications Medication Sig Dispensed Refills Start Date [...] 250 MG Oral Tablet (Zithromax)Indicati ons:COPD, moderate ([facility]) Take two pills by mouth on first day, then one pill a day RESCUE KIT 6 Tablet 2 2 Active Additional Information Patient not taking.Reported on 10/30/2023 Triamcinolone Acetonide 0.1 % Mouth/Throat Paste (Kenalog In Orabase)Indications :Mouth sore Apply to inside of cheek 3 times a day . To affected area. 5 g 3 2 Active Additional Information Patient not taking.Reported [...] Inhalation AerosolIndications: COPD (chronic obstructive pulmonary disease) ([facility]) Inhale 2 Puffs by mouth in the morning and 2 Puffs before bedtime. 30.6 g 3 3 Active Sertraline HCl 50 MG Oral Tablet (Zoloft)Indications :Adjustment disorder with depressed mood Take 1 Tablet by mouth in the morning. 90 Tablet 3 3 Active Albuterol Sulfate HFA 108 (90 Base) MCG/ACT Inhalation Aerosol SolutionIndications :COPD, group D, by GOLD 2017 classification ([facility]),Bronchitis, complicated INHALE 2 PUFFS BY MOUTH EVERY 4 HOURS NEEDED FOR WHEEZE 18 g 1 3 Active oxygen IN GAS Use 2 L/min(Oxygen) as directed in the morning. With exertion as needed. 0 Active Triamcinolone Acetonide 55 MCG/ACT Nasal Aerosol (Nasacort Allergy 24HR) Administer 2 Sprays into each nostril in the morning. 16.9 mL 11 4 Active Spiriva Respimat 2.5 MCG/ACT Inhalation Aerosol Solution (Tiotropium [place] Monohydrate) Inhale 2 Puffs by mouth in the morning. 3 Each 0 4 01/28/20 24 Active Isosorbide Mononitrate ER 30 MG Oral [...] THE MORNING 90 Tablet 2 4 Active Losartan Potassium 50 MG Oral Tablet (Cozaar)Indications :HTN, goal below 140/90 Take 1 Tablet by mouth in the morning. 90 Tablet 0 3 01/14/20 24 Discontinued Hospital, Clinic, or Other Facility Administered Medication Ordered Dose Route Frequency Start Date End Date Status albuterol-ipratropium (DUONEB) inhalation solution 3 mLIndications:Lung infection 3 mL NEBULIZER RESPQID 01/14/2018 Active documented as of this encounter (statuses as of 01/14/2024) Active Problems Problem Noted Date Diagnosed Date [...] as of this encounter (statuses as of 01/14/2024) Resolved Problems Problem Noted Date Diagnosed Date Resolved Date Recurrent major depressive disorder 09/08/2019 10/24/2023 COPD, moderate 09/08/2018 03/25/2019 Overview: Per COPD GOLD Classification Abnormal chest x-ray 05/26/2018 018 Tobacco use disorder 03/27/2013 018 Asthma 04/07/2018 COPD (chronic obstructive pulmonary disease) 03/25/2019 documented as of this encounter (statuses as of 01/14/2024) Immunizations Name Administration Dates Next Due Pneumococcal [...] encounter Miscellaneous Notes * Telephone Encounter - Luz Saha RPh - 01/14/2024 5:59 AM EDTSigned Prescriptions: Disp Refills Losartan Potassium 50 MG Oral Tablet (Coza*90 Tab*2 Sig: TAKE 1 TABLET BY MOUTH EVERY DAY IN THE MORNINGAuthorizing Provider: GRIFFIN IVY AOrdering User: LUZ SAHA documented in this encounter Plan of Treatment Upcoming Encounters Date Type Department Care Team (Late st Contact Info) Description 02/20/2024 4:00 PM EDT Office Visit Cardiology, [facility] [address] [facility] [place] [address] Rahul Ellsworth DO [address] [facility] [place] [address] 03/27/2024 9:30 AM EDT Office Visit Radiation Oncology, [facility] [address] [facility] [place] [address] Ernesto Hoffman MD [address] [place] [address] 04/23/2024 11:40 AM EDT Office Visit Family Practice [facility] [address] [place] [address] Ivy Holden PA-C [address] [place] [address] 05/25/2024 11:00 AM EDT Laboratory Laboratory, [facility] [address] [facility] [place] [id number] [facility] [address] [facility] [place] [address] 05/28/2024 11:00 AM EDT Imaging Radiology [facility] [address]st [facility] [address] [facility] [place] [address] 06/04/2024 10:45 AM EDT Office Visit Hematology/Oncology [facility] [address] [place] [address] [phone] Igor Sommers MD [address] [place] [address] Scheduled Procedures Name Priority Associated Diagnoses Date/Ti me COLONOSCOPY FLEXIBLE PROXIMAL DIAGNOSTIC Recall History of colon polyps Health Maintenance Due Date Last Done Comments Hepatitis B (1 of 3 - 19+ 3-dose series) 1983 *ADVANCE DIRECTIVE NOT ON FILE 03/28/2019 Depression [...] hypertension documented in this encounter Care Teams Automobile Bumper Straightener Relationship Specialty Start Date End Date Ivy Holden PA-C [address] [place] [address] PCP - General Physician Beverage Manager 11/30/19 documented as of this encounter
--- OUTSIDE RECORDS SUMMARY | 2024-03-17 00:18 | External Medical Summary | Summary of Care ---
Author Name Unknown Organization [facility] Address [address] [facility] [place] [address] Phone [phone] Care Team Providers Care Planning Feeder Name Role Phone Ivy Holden PA-C Primary Care Provider [phone] Reason for Visit * Reason Onset Date Comments Advice 01/27/2024 Nocturnal oximet ry testing Encounter Details Date Type Department Care Team (Late st Contact Info) Description 01/27/2024 Telephone Pulmonary Medicine [facility] [address] [place] [phone] Danny Velez MD [address] [place] [address] Advice (Nocturnal oximetry testing) Allergies Active Allergy Reactions Criticality Noted Date [...] Oral Tablet (Zithromax)Indication s:COPD, moderate ([facility]) Take two pills by mouth on first [...] PD (chronic obstructive pulmonary disease) ([facility]) Inhale 2 Puffs by mouth in the morning and 2 Puffs before bedtime. 30.6 g 3 07/22/2023 Active Sertraline HCl 50 MG Oral Tablet (Zoloft)Indications:A djustment disorder with depressed mood Take 1 Tablet by mouth in the morning. 90 Tablet 3 07/21/2023 Active Albuterol Sulfate HFA 108 (90 Base) MCG/ACT Inhalation Aerosol SolutionIndications:C OPD, group D, by GOLD 2017 classification ([facility]),Bronchitis, complicated INHALE 2 PUFFS BY MOUTH EVERY [...] Respimat 2.5 MCG/ACT Inhalation Aerosol Solution (Tiotropium [place] Monohydrate) Inhale 2 Puffs by mouth in [...] encounter Miscellaneous Notes * Telephone Encounter - Ariela Zarate LPN - 01/27/2024 9:[address] Velez reviewed patients nocturnal oximetry testing. Per his advice - patient oxygen was down for 3 hours and she needs to keep using her oxygen. Patient was called and advised of this. Marilyn stated understanding. documented in this encounter Plan of Treatment Upcoming Encounters Date Type Department Care Team (Late st Contact Info) Description 02/20/2024 4:00 PM EDT Office Visit Cardiology, [facility] [address] [place] [address] Rahul Ellsworth, [address] [place] [address] 03/27/2024 9:30 AM EDT Office Visit Radiation Oncology, [facility] [address] [facility], [place] [address] Ernesto Hoffman MD [address] [place] [address] 04/23/2024 11:40 AM EDT Office Visit Family Practice [facility] 200 [facility] [place] [address] Ivy Holden PA-C [facility] [place] [address] 05/25/2024 11:00 AM EDT Laboratory Laboratory, [facility] [phone] [facility] 132 [facility] [place] [address] 05/28/2024 11:00 AM EDT Imaging Radiology [facility] 1st [facility] 132 [facility] [place] [address] 06/04/2024 10:45 AM EDT Office Visit Hematology/Oncology [facility] [place] [phone] Igor Sommers MD 200 [facility] [place] [address] 08/17/2024 10:20 AM EST Office Visit Pulmonary Medicine, [facility] 132 [facility] [place] [address] Danny Velez MD [address] [place] [address] Scheduled Procedures Name Priority Associated Diagnoses Date/Ti [...] filedocumented as of this encounter Care Teams Planning Feeder Relationship Specialty Start Date End Date AdinaJanuary ANU Juares [address] [place], [place] [address] PCP - General Physician Engraving Plate Maker 11/30/19 documented as of this encounter
[2024-03-17] MEDS ORDERED: Nursing to Pharmacy Communication SCH (00:30)
[2024-03-17] MEDS: methylPREDNISolone 40 MG in SYRINGE 0 ML IV SCH (00:42)
[2024-03-17 07:11] LABS: Hematocrit (blood only) 38.9 % (37.0-47.0); Hemoglobin 12.7 g/dl (12.0-16.0); Mean Corpuscular Hemoglobin 36.1 pg (25.0-34.0); Mean Corpuscular Hgb Conc 32.6 g/dL (32.0-36.0); Mean Corpuscular Volume 110.5 fL (80.0-100.0); Mean Platelet Volume 9.5 fL (9.4-12.4); Platelet Count 272 K/uL (130-400); RDW Coefficient of Variation 12.7 % (11.5-14.5); RDW Standard Deviation 51.9 fL (36.4-46.3); Red Blood Count 3.52 M/uL (4.20-5.40)
[2024-03-17 07:30] LABS: BUN Creatinine Ratio 31.1 (10-20); Calcium 8.7 mg/dl (8.6-10.3); Creatinine Clr Calc Pharmacy 67.8 ml/min; Est GFR (African American) 102.8 ml/min; Est GFR (Non-African American) 88.7 ml/min; Potassium 5.3 mmol/L (3.5-5.1)
[2024-03-17] MEDS: ASPIRIN 81 MG ECTAB PO SCH (08:01)
[2024-03-17] MEDS: ISOSORBIDE MONO EXTENDED REL 30 MG TABCR PO SCH (08:01)
[2024-03-17] MEDS: LOSARTAN POTASSIUM 50 MG TAB PO SCH (08:01)
[2024-03-17] MEDS: ATORVASTATIN 20 MG TAB PO SCH (08:01)
[2024-03-17] MEDS: METOPROLOL SUCC 25MG EXT REL TAB PO SCH (08:02)
[2024-03-17] MEDS: FLUTICASONE/VILANTEROL 100/25MCG 14 PUFFS/INHALER INH SCH (08:04)
[2024-03-17] MEDS: SODIUM ZIRCONIUM CYCLOSILICATE 10 GM PACKET PO SCH (10:27)
--- NOTE | 2024-03-17 16:03 | Hospitalist Progress Note ---
Date of Service March 17, 2024 Assessment & Plan (1) Acute on chronic hypoxic respiratory failure: (2) Acute exacerbation of chronic obstructive pulmonary disease (COPD): (3) SIRS (systemic inflammatory response syndrome): (4) Parainfluenza infection: Plan: Patient presenting from home with reports of worsening shortness of breath and cough x 4 days despite prednisone taper and albuterol inhaler In the ED, patient saturating 75% on 2 L of oxygen and placed on 4 L of oxygen via nasal cannula to maintain saturations. Typically wears 2 L of oxygen at bedtime only Patient met SIRS criteria with WBC 18 K, tachycardia, tachypnea. BP stable. Noted normal procalcitonin and lactate. Bio fire + Parainfluenza virus No infiltrate noted on CXR Improving, now down to 2 L NC. Leucocytosis improving Continue iv solumedrol q8hr, iv ceftriaxone/duoneb, breo ellipta, mucinex, flutter valve, IS Follow sputum culture Consider CT chest if not improving (5) Elevated troponin: Plan: Likely demand ischemia in the setting of acute illness and hypoxia (6) CAD (coronary artery disease): Plan: Hx of abnormal stress test, medical management recommended Continue ASA, statin, beta-shanika, nitrate (7) HTN (hypertension): Plan: BP controlled. On beta shanika, losartan (8) Non-small cell carcinoma of lung: Plan: S/p chemo, radiation, and immunotherapy -- all treatments completed Follows with [facility] pulmonary Plan Hyperkalemia- started on lokelma. recheck in am Mood disorder- on wellbutrin and zoloft DVT ppx- sc lovenox Dispo- Pending medical stability. Will need 2 step O2 eval prior to discharge. Asking for portable oxygen at discharge Time spent- approx 35 mins Admission and Anticipated Discharge Date Admission Date: March 16, 2024 Subjective Patient was seen and examined at bedside. Still with significant wheezing. Somewhat better since admission. Still with cough and phlegm and SALDIVAR. No fever or chills. No N/V. Uses 2 L oxygen at night but here requiring all the time. She does say that she sometimes gets SOB at work and asking for a portable oxygen that she can carry around at work. Review of Systems Review of Systems: All systems reviewed & are unremarkable except as noted in HPI & below Physical Exam Physical Exam: General: Lying comfortably in bed, not in distress, on 2 L NC Chest: Diffuse bilateral wheezes CVS: Regular rate and rhythm, normal heart sounds, no murmur Abdomen: Soft, non tender, not distended, normal bowel sounds Neuro: Awake, alert, oriented, conversing well, non focal Extremities: No edema Results & Data Results & Data Vital Signs (Past 12 Hours) Vital Signs Temp Pulse Pulse Resp BP Pulse Ox O2 Del Method 03/17/24 15:31 102 H 18 91 Nasal Cannula 03/17/24 15:28 37.0 C 95 H 18 129/66 94 Nasal Cannula 03/17/24 14:14 104 H 03/17/24 11:32 37.0 C 79 18 138/66 92 Nasal Cannula 03/17/24 11:13 91 H 18 90 Nasal Cannula 03/17/24 08:10 Nasal Cannula 03/17/24 07:43 36.7 C 92 H 18 170/79 H 90 Nasal Cannula 03/17/24 07:27 83 18 98 Nasal Cannula 03/17/24 07:00 68 O2 Flow Rate 03/17/24 15:31 2 03/17/24 15:28 2 03/17/24 14:14 03/17/24 11:32 2 03/17/24 11:13 2 03/17/24 08:10 4 03/17/24 07:43 4 03/17/24 07:27 4 03/17/24 07:00 Laboratory Results Short CBC 03/17/24 Range/Units 06:54 WBC 14.90 H (4.8-10.8) K/ul Hgb 12.7 (12.0-16.0) g/dl Hct 38.9 (37.0-47.0) % Plt Count 272 (130-400) K/uL BMP 03/17/24 06:54 Sodium 141 Potassium 5.3 H Chloride 105 Carbon Dioxide 32 BUN 23 Creatinine 0.74 Glucose 128 H Calcium 8.7
--- NOTE | 2024-03-18 06:15 | Electrocardiogram Report ---
Test Reason : Blood Pressure : / mmHG Vent. Rate : 127 BPM Atrial Rate : 127 BPM P-R Int : 160 ms QRS Dur : 080 ms QT Int : 284 ms P-R-T Axes : 074 069 030 degrees QTc Int : 412 ms Sinus tachycardia Nonspecific T wave abnormality Abnormal ECG When compared with ECG of 15-OCT-2023 14:54, T wave inversion now evident in Inferior leads Confirmed by Eleuterio Rainey ([id number]) on 03/18/2024 6:14:43 AM Referred By: REFERRED SELF Confirmed By:Eleuterio Rainey
[2024-03-18 08:33] LABS: Hematocrit (blood only) 35.1 % (37.0-47.0); Hemoglobin 11.7 g/dl (12.0-16.0); Mean Corpuscular Hgb Conc 33.3 g/dL (32.0-36.0); Platelet Count 299 K/uL (130-400); RDW Coefficient of Variation 12.5 % (11.5-14.5); RDW Standard Deviation 49.9 fL (36.4-46.3); Red Blood Count 3.25 M/uL (4.20-5.40)
[2024-03-18 08:55] LABS: BUN Creatinine Ratio 44.9 (10-20); Calcium 8.9 mg/dl (8.6-10.3); Creatinine Clr Calc Pharmacy 73.3 ml/min; Est GFR (African American) 110.4 ml/min; Est GFR (Non-African American) 95.3 ml/min; Potassium 4.5 mmol/L (3.5-5.1)
[2024-03-18] MEDS: FORMOTEROL 20 MCG/2 ML VIAL NEB SCH (11:37)
[2024-03-18] MEDS: BUDESONIDE 0.5 MG/2 ML VIAL (PULMICORT) NEB SCH (11:37)
--- NOTE | 2024-03-18 15:48 | Hospitalist Progress Note ---
Date of Service March 18, 2024 Assessment & Plan (1) Acute on chronic hypoxic respiratory failure: (2) Acute exacerbation of chronic obstructive pulmonary disease (COPD): (3) SIRS (systemic inflammatory response syndrome): (4) Parainfluenza infection: Plan: Patient presenting from home with reports of worsening shortness of breath and cough x 4 days despite prednisone taper and albuterol inhaler In the ED, patient saturating 75% on 2 L of oxygen and placed on 4 L of oxygen via nasal cannula to maintain saturations. Typically wears 2 L of oxygen at bedtime only Patient met SIRS criteria with WBC 18 K, tachycardia, tachypnea. BP stable. Noted normal procalcitonin and lactate. Bio fire + Parainfluenza virus No infiltrate noted on CXR Continue on antibiotics, IV steroids, budesonide formoterol nebs [id number] DuoNebs Wean oxygen as tolerated (5) Elevated troponin: Plan: Likely demand ischemia in the setting of acute illness and hypoxia (6) CAD (coronary artery disease): Plan: Hx of abnormal stress test, medical management recommended Continue ASA, statin, beta-shanika, nitrate (7) HTN (hypertension): Plan: BP controlled. On beta shanika, losartan (8) Non-small cell carcinoma of lung: Plan: S/p chemo, radiation, and immunotherapy -- all treatments completed Follows with [facility] pulmonary Plan Hyperkalemia- given lokelma, losartan on hold Mood disorder- on wellbutrin and zoloft DVT ppx- sc lovenox Dispo- Pending medical stability.History of oxygen evaluation was done; patient required 6 L on minimal exertion. Continue to monitor inpatient; possible discharge in next few days Time spent- approx 35 mins Please note the above document was generated using voice recognition software. It may contain grammatical, syntax or spelling errors. Any formal questions or concerns about the content, text or information contained within the body of this dictation should be directly addressed to the provider for clarification Admission and Anticipated Discharge Date Admission Date: March 16, 2024 Subjective Patient seen and examined at bedside. She reports that shortness of breath has slightly improved compared to admission She is needing 3 L of oxygen by nasal cannula. No significant events overnight Review of Systems Review of Systems: All systems reviewed & are unremarkable except as noted in Subjective Physical Exam Physical Exam: Constitutional: WD/WN, vitals as above, NAD, sitting up in bed, pleasant, conversing easily Respiratory: Decreased bilateral air entry. Occasional wheeze Cardiovascular: RRR, no murmur, no edema Vessels: no JVD or carotid bruit Chest: normal inspection of chest Abdomen: normal bowel sounds, soft, nontender, no hepatosplenomegaly Musculoskeletal: no cyanosis or clubbing, extremities motor strength 5/5 Skin: no rashes, warm and dry normal turgor Neurologic: PERRL, EOMI, accommodation nl, no face palsy, no dysarthria CN's II- XI intact bilaterally and moves all extremities Psychiatric: A+Ox3, euthymic affect Results & Data Results & Data Vital Signs (Past 12 Hours) Vital Signs Temp Pulse Pulse Pulse Pulse Pulse Pulse 03/18/24 15:18 03/18/24 11:40 86 03/18/24 11:32 36.6 C 03/18/24 10:22 113 H 112 H 115 H 110 H 03/18/24 09:00 03/18/24 07:58 36.6 C 03/18/24 07:11 88 03/18/24 07:00 79 03/18/24 03:45 36.8 C Pulse Pulse Pulse Resp Resp Resp Resp 03/18/24 15:18 99 H 20 03/18/24 11:40 20 03/18/24 11:32 88 18 03/18/24 10:22 98 H 106 H 24 24 26 H 03/18/24 09:00 03/18/24 07:58 74 18 03/18/24 07:11 18 03/18/24 07:00 03/18/24 03:45 88 16 Resp Resp Resp BP Pulse Ox Pulse Ox Pulse Ox 03/18/24 15:18 90 03/18/24 11:40 96 03/18/24 11:32 169/82 H 91 03/18/24 10:22 24 18 18 87 L 86 L 03/18/24 09:00 03/18/24 07:58 157/76 H 92 03/18/24 07:11 98 03/18/24 07:00 03/18/24 03:45 161/85 H 94 Pulse Ox Pulse Ox Pulse Ox Pulse Ox O2 Del Method O2 Flow Rate O2 Flow Rate 03/18/24 15:18 Nasal Cannula 3 03/18/24 11:40 Nasal Cannula 2 03/18/24 11:32 Nasal Cannula 2 03/18/24 10:22 87 L 90 91 81 L 2 03/18/24 09:00 Nasal Cannula 2 03/18/24 07:58 Nasal Cannula 2 03/18/24 07:11 Nasal Cannula 2 03/18/24 07:00 03/18/24 03:45 Nasal Cannula 3 O2 Flow Rate O2 Flow Rate O2 Flow Rate O2 Flow Rate 03/18/24 15:18 03/18/24 11:40 03/18/24 11:32 03/18/24 10:22 3 4 6 2 03/18/24 09:00 03/18/24 07:58 03/18/24 07:11 03/18/24 07:00 03/18/24 03:45
[2024-03-19 06:51] LABS: Hematocrit (blood only) 34.9 % (37.0-47.0); Hemoglobin 11.5 g/dl (12.0-16.0); Mean Corpuscular Hemoglobin 35.7 pg (25.0-34.0); Mean Corpuscular Volume 108.4 fL (80.0-100.0); Mean Platelet Volume 9.8 fL (9.4-12.4); Platelet Count 289 K/uL (130-400); RDW Coefficient of Variation 12.5 % (11.5-14.5); RDW Standard Deviation 50.6 fL (36.4-46.3); Red Blood Count 3.22 M/uL (4.20-5.40); White Blood Count 17.21 K/ul (4.8-10.8)
[2024-03-19 07:14] LABS: BUN Creatinine Ratio 42.9 (10-20); Creatinine Clr Calc Pharmacy 71.9 ml/min; Est GFR (African American) 109.9 ml/min; Est GFR (Non-African American) 94.8 ml/min; Potassium 5.5 mmol/L (3.5-5.1)
[2024-03-19 07:21] LABS: Basophils # (auto) 0.02 K/uL (0.00-0.20); Basophils % (auto) 0.1 %; Immature Granulocytes # (auto) 0.16 K/uL (0.01-0.20); Immature Granulocytes % (auto) 0.9 %; Lymphocytes # (auto) 0.79 K/uL (1.20-3.40); Lymphocytes % (auto) 4.6 %; Monocytes # (auto) 0.56 K/uL (0.11-0.59); Monocytes % (auto) 3.3 %; Neutrophils # (auto) 15.68 K/uL (1.40-6.50); Neutrophils % (auto) 91.1 %; Polychromasia 1+
[2024-03-19] MEDS: SODIUM ZIRCONIUM CYCLOSILICATE 10 GM PACKET PO SCH (11:10)
[2024-03-19] MEDS: OPTIRAY 320 125ml IV ONE (12:43)
[2024-03-19] MEDS: NIFEdipine EXTENDED REL 30 MG TABCR PO SCH (13:09)
--- NOTE | 2024-03-19 13:26 | CT Scan Report ---
CT ANGIOGRAM OF THE CHEST CLINICAL HISTORY: Atypical chest pain. Dyspnea. COMPARISON STUDY: Chest x-ray dated 03/16/2024. Chest CT dated 10/15/2023. TECHNIQUE: Following the IV administration of 119 cc of Optiray 320, CT angiogram of the chest was pe rformed from the upper abdomen to the thoracic inlet utilizing the pulmonary embolus protocol. Images are reviewed in the axial, sagittal, and coronal planes. 3-D MIPS images are created and assessed. I V contrast was administered without complication. A dose lowering technique was utilized adhering to the principles of ALARA. FINDINGS: Thyroid: Imaged portions of the thyroid gland are normal in size and attenuation. Thoracic aorta: There is mild atherosclerotic calcification of the thoracic aorta, which is normal in caliber and demonstrates standard 3-vessel arch anatomy. No dissection is seen. Pulmonary vasculature: The pulmonary trunk is dilated, measuring 3.7 cm in diameter. This suggests pu lmonary artery hypertension. There are no filling defects identified in main, lobar, or segmental pul monary branches to suggest pulmonary embolus. Heart: The heart is normal in size and without pericardial effusion. There are coronary artery calcif ications. Lungs and pleural spaces: Mild emphysematous change is noted. There is no airspace consolidation or p leural effusion. Foci of scarring/atelectasis are seen throughout both lungs. The trachea and central airways are clear. There are numerous calcified granulomas. Mediastinum: There is no mediastinal lymphadenopathy. Yenni: Clear. Axillae: There is no axillary lymphadenopathy. Upper abdomen: The gallbladder is surgically absent. A normal spleen is not identified, with splenule s noted in the left upper quadrant. A densely calcified presumed splenule below the left hemidiaphrag m measuring up to 4 cm is unchanged from previous. Skeletal structures: No lytic or blastic bony lesions are seen. Degenerative change is noted in the t horacic spine. There are chronic/healed right-sided rib fractures. IMPRESSION: 1. There is no evidence of pulmonary embolus in the main, lobar, or segmental pulmonary arteries. 2. No airspace consolidation or pleural effusion is identified. 3. Emphysema. 4. Additional findings as above. ACT 112: Negative or not required by law. Electronically signed by: Israel Ly M.D. 03/19/2024 1:25 PM
[2024-03-19] MEDS ORDERED: SODIUM CHLORIDE 0.65% NA SOLN 45 ML (OCEAN) PRN (13:34)
--- NOTE | 2024-03-19 14:15 | Hospitalist Progress Note ---
Date of Service March 19, 2024 Assessment & Plan (1) Acute on chronic hypoxic respiratory failure: (2) Acute exacerbation of chronic obstructive pulmonary disease (COPD): (3) SIRS (systemic inflammatory response syndrome): (4) Parainfluenza infection: Plan: Patient presenting from home with reports of worsening shortness of breath and cough x 4 days despite prednisone taper and albuterol inhaler In the ED, patient saturating 75% on 2 L of oxygen and placed on 4 L of oxygen via nasal cannula to maintain saturations. Typically wears 2 L of oxygen at bedtime only Patient met SIRS criteria with WBC 18 K, tachycardia, tachypnea. BP stable. Noted normal procalcitonin and lactate. Bio fire + Parainfluenza virus No infiltrate noted on CXR CTA chest done due to persistent hypoxia and shortness of breath on minimal exertion; no PE/pneumonia/pleural effusion. Emphysema noted. Continue on antibiotics, IV steroids, budesonide formoterol nebs Qhzen-wwg-iafkd DuoNebs Wean oxygen as tolerated (5) Elevated troponin: Plan: Likely demand ischemia in the setting of acute illness and hypoxia (6) CAD (coronary artery disease): Plan: Hx of abnormal stress test, medical management recommended Continue ASA, statin, beta-shanika, nitrate (7) HTN (hypertension): Plan: BP controlled. Metoprolol and losartan on hold due to hyperkalemia. Will stop losartan indefinitely as patient had history of hyperkalemia on lisinopril as well. Nifedipine is started (8) Non-small cell carcinoma of lung: Plan: S/p chemo, radiation, and immunotherapy -- all treatments completed Follows with [facility] pulmonary Plan Hyperkalemia- given lokelma, losartan stopped; started on nifedipine Mood disorder- on wellbutrin and zoloft, cotninue DVT ppx- sc lovenox Dispo- Pending medical stability.History of oxygen evaluation was done; patient required 6 L on minimal exertion. Continue to monitor inpatient; possible discharge in next few days Time spent- approx 35 mins Please note the above document was generated using voice recognition software. It may contain grammatical, syntax or spelling errors. Any formal questions or concerns about the content, text or information contained within the body of this dictation should be directly addressed to the provider for clarification Admission and Anticipated Discharge Date Admission Date: March 16, 2024 Subjective Patient seen and examined at bedside. She continues to report shortness of breath on minimal exertion She is currently on ankro-fze-jxccl DuoNeb Currently saturating around 92% in 3 L of oxygen by nasal cannula Review of Systems Review of Systems: All systems reviewed & are unremarkable except as noted in Subjective Physical Exam Physical Exam: Constitutional: WD/WN, vitals as above, NAD, sitting up in bed, pleasant, conversing easily Respiratory: Decreased bilateral air entry. Occasional wheeze Cardiovascular: RRR, no murmur, no edema Vessels: no JVD or carotid bruit Chest: normal inspection of chest Abdomen: normal bowel sounds, soft, nontender, no hepatosplenomegaly Musculoskeletal: no cyanosis or clubbing, extremities motor strength 5/5 Skin: no rashes, warm and dry normal turgor Neurologic: PERRL, EOMI, accommodation nl, no face palsy, no dysarthria CN's II- XI intact bilaterally and moves all extremities Psychiatric: A+Ox3, euthymic affect Results & Data Results & Data Vital Signs (Past 12 Hours) Vital Signs Temp Pulse Pulse Resp BP Pulse Ox O2 Del Method 03/19/24 12:18 36.7 C 86 19 212/88 H 92 Nasal Cannula 03/19/24 10:54 86 14 92 Room Air 03/19/24 09:16 36.5 C 71 18 143/89 H 98 Nasal Cannula 03/19/24 08:00 Nasal Cannula 03/19/24 07:39 64 15 96 Nasal Cannula 03/19/24 07:00 60 03/19/24 03:06 36.8 C 64 18 131/64 95 Nasal Cannula O2 Flow Rate 03/19/24 12:18 3 03/19/24 10:54 03/19/24 09:16 3 03/19/24 08:00 2 03/19/24 07:39 2.5 03/19/24 07:00 03/19/24 03:06 2
[2024-03-20 07:16] LABS: Hematocrit (blood only) 33.9 % (37.0-47.0); Hemoglobin 11.6 g/dl (12.0-16.0); Mean Corpuscular Hemoglobin 36.1 pg (25.0-34.0); Mean Corpuscular Hgb Conc 34.2 g/dL (32.0-36.0); Mean Corpuscular Volume 105.6 fL (80.0-100.0); Platelet Count 306 K/uL (130-400); RDW Coefficient of Variation 12.1 % (11.5-14.5); RDW Standard Deviation 47.7 fL (36.4-46.3); Red Blood Count 3.21 M/uL (4.20-5.40); White Blood Count 16.89 K/ul (4.8-10.8)
[2024-03-20 07:34] LABS: BUN Creatinine Ratio 49.3 (10-20); Calcium 9.2 mg/dl (8.6-10.3); Creatinine Clr Calc Pharmacy 75.3 ml/min; Est GFR (African American) 111.5 ml/min; Est GFR (Non-African American) 96.2 ml/min; Potassium 4.8 mmol/L (3.5-5.1)
[2024-03-20 07:39] LABS: Basophils # (auto) 0.02 K/uL (0.00-0.20); Basophils % (auto) 0.1 %; Immature Granulocytes # (auto) 0.12 K/uL (0.01-0.20); Immature Granulocytes % (auto) 0.7 %; Lymphocytes # (auto) 0.79 K/uL (1.20-3.40); Lymphocytes % (auto) 4.7 %; Monocytes # (auto) 0.69 K/uL (0.11-0.59); Monocytes % (auto) 4.1 %; Neutrophils # (auto) 15.27 K/uL (1.40-6.50); Neutrophils % (auto) 90.4 %; Polychromasia 1+
--- NOTE | 2024-03-20 13:21 | Hospitalist Progress Note ---
Date of Service March 20, 2024 Assessment & Plan (1) Acute on chronic hypoxic respiratory failure: (2) Acute exacerbation of chronic obstructive pulmonary disease (COPD): (3) SIRS (systemic inflammatory response syndrome): (4) Parainfluenza infection: Plan: Patient presenting from home with reports of worsening shortness of breath and cough x 4 days despite prednisone taper and albuterol inhaler In the ED, patient saturating 75% on 2 L of oxygen and placed on 4 L of oxygen via nasal cannula to maintain saturations. Typically wears 2 L of oxygen at bedtime only Patient met SIRS criteria with WBC 18 K, tachycardia, tachypnea. BP stable. Noted normal procalcitonin and lactate. Bio fire + Parainfluenza virus No infiltrate noted on CXR CTA chest done due to persistent hypoxia and shortness of breath on minimal exertion; no PE/pneumonia/pleural effusion. Emphysema noted. Continue on antibiotics, IV steroids, budesonide formoterol nebs Pgide-jnz-lufqt DuoNebs Wean oxygen as tolerated (5) Elevated troponin: Plan: Likely demand ischemia in the setting of acute illness and hypoxia (6) CAD (coronary artery disease): Plan: Hx of abnormal stress test, medical management recommended Continue ASA, statin, beta-shanika, nitrate (7) HTN (hypertension): Plan: BP controlled. Metoprolol and losartan on hold due to hyperkalemia. Will stop losartan indefinitely as patient had history of hyperkalemia on lisinopril as well. Nifedipine is started (8) Non-small cell carcinoma of lung: Plan: S/p chemo, radiation, and immunotherapy -- all treatments completed Follows with [facility] Plan Hyperkalemia- given lokelma, losartan stopped; started on nifedipine Mood disorder- on wellbutrin and zoloft, cotninue DVT ppx- sc lovenox Dispo- Pending medical stability.History of oxygen evaluation was done; patient required 6 L on minimal exertion. Continue to monitor inpatient; possible discharge in next few days Time spent- approx 35 mins Please note the above document was generated using voice recognition software. It may contain grammatical, syntax or spelling errors. Any formal questions or concerns about the content, text or information contained within the body of this dictation should be directly addressed to the provider for clarification Admission and Anticipated Discharge Date Admission Date: March 16, 2024 Subjective Patient seen and examined at bedside She is comfortable; not in distress She reports that she is feeling slightly better compared to yesterday Oxygen requirement of 2 L at rest Review of Systems Review of Systems: All systems reviewed & are unremarkable except as noted in Subjective Physical Exam Physical Exam: Constitutional: WD/WN, vitals as above, NAD, sitting up in bed, pleasant, conversing easily Respiratory: Decreased bilateral air entry. Occasional wheeze Cardiovascular: RRR, no murmur, no edema Vessels: no JVD or carotid bruit Chest: normal inspection of chest Abdomen: normal bowel sounds, soft, nontender, no hepatosplenomegaly Musculoskeletal: no cyanosis or clubbing, extremities motor strength 5/5 Skin: no rashes, warm and dry normal turgor Neurologic: PERRL, EOMI, accommodation nl, no face palsy, no dysarthria CN's II- XI intact bilaterally and moves all extremities Psychiatric: A+Ox3, euthymic affect Results & Data Results & Data Vital Signs (Past 12 Hours) Vital Signs Temp Pulse Pulse Resp BP Pulse Ox O2 Del Method 03/20/24 11:31 37.0 C 108 H 16 147/79 H 96 Nasal Cannula 03/20/24 11:06 120 H 28 H 90 Nasal Cannula 03/20/24 08:00 03/20/24 08:00 79 03/20/24 07:40 36.8 C 89 18 152/83 H 92 Nasal Cannula 03/20/24 07:31 91 H 20 92 Nasal Cannula 03/20/24 03:04 105 H 24 89 L Nasal Cannula 03/20/24 02:48 36.8 C 82 18 104/74 96 Nasal Cannula O2 Flow Rate 03/20/24 11:31 2 03/20/24 11:06 6 03/20/24 08:00 2 03/20/24 08:00 03/20/24 07:40 3 03/20/24 07:31 2 03/20/24 03:04 3 03/20/24 02:48 3
--- NOTE | 2024-03-21 14:34 | Discharge Summary ---
Date of Service March 21, 2024 Admission HPI Per Admitting Provider 58-year-old female with PMH oxygen dependent COPD on 2 L of oxygen at night, HTN, CAD manage medically, history of lung cancer s/p chemotherapy and radiation, and other problems listed below who presents to the ED for evaluation of shortness of breath and cough. Patient reports that 4 days ago she developed shortness of breath with minimal exertion and cough productive for yellow sputum. The following day her crimper assembler prescribed her a prednisone taper and refilled her albuterol inhaler as she was out. Patient reports minimal improvement in her symptoms and therefore presented to the ED today. Typically only wears 2 L of oxygen at night however has been wearing continuously over the past few days increasing up to 4 L. Patient denies any sick contacts or recent travel. No fevers or chills. Reports she had had a poor appetite however that is now improved. Reports chest tightness however no chest pain or palpitations. Denies lightheadedness, dizziness, diaphoresis, syncopal events. No abdominal pain, nausea, vomiting, diarrhea. Denies urinary symptoms. In the ED, patient was hypoxic at 75% on 2 L, Tachycardic, tachypneic. Labs show WBC 18 K, noted normal lactate and procalcitonin. CXR unremarkable. Bio fire positive for parainfluenza. Patient currently requiring 4 L of oxygen via nasal cannula to maintain saturations. She was given nebulizer treatment, cetirizine, doxycycline, IV magnesium, IV Solu-Medrol, IVF. Admission Exam Per Admitting Provider Constitutional: WD/WN, vitals as above no acute distress Eyes: PERRL, conjunctivae normal, anicteric sclerae ENMT: external ear and nose normal, oropharynx normal Respiratory: normal respiratory effort and able to speak in complete sentences; no respiratory distress Auscultation: + wheezes (faint, end expiratory) minimal air movement BL Cardiovascular: Rate/Rhythm: regular rate and regular rhythm Vessels: normal peripheral pulses Extremities: no edema Gastrointestinal (Abdomen): normal bowel sounds, soft, nontender, no hepatosplenomegaly Musculoskeletal: no cyanosis or clubbing, extremities motor strength 5/5 Skin: no rashes, warm and dry Neurologic: PERRL, EOMI, accommodation nl, no face palsy, no dysarthria Psychiatric: A+Ox3, euthymic affect Principal Diagnosis COPD exacerbation Discharge Exam Constitutional: WD/WN, vitals as above, NAD, sitting up in bed, pleasant, conversing easily Respiratory: Occasional wheeze bilaterally Cardiovascular: RRR, no murmur, no edema Vessels: no JVD or carotid bruit Chest: normal inspection of chest Abdomen: normal bowel sounds, soft, nontender, no hepatosplenomegaly Musculoskeletal: no cyanosis or clubbing, extremities motor strength 5/5 Skin: no rashes, warm and dry normal turgor Neurologic: PERRL, EOMI, accommodation nl, no face palsy, no dysarthria CN's II- XI intact bilaterally and moves all extremities Psychiatric: A+Ox3, euthymic affect Discharge Data Allergies Allergy/AdvReac Type Severity Reaction Status Date / Time Sulfa (Sulfonamide Allergy Intermediate Hives, Verified 03/16/24 16:18 Antibiotics) possible dyspnea Penicillins Allergy Mild Hives Verified 03/16/24 16:18 Ordered Studies 03/19/24 11:41 CT angio chest PE protocol Urgent Hospital Course (1) Acute on chronic hypoxic respiratory failure: (2) Acute exacerbation of chronic obstructive pulmonary disease (COPD): (3) SIRS (systemic inflammatory response syndrome): (4) Parainfluenza infection: (5) Elevated troponin: (6) CAD (coronary artery disease): (7) HTN (hypertension): (8) Non-small cell carcinoma of lung: Plan Patient presenting from home with reports of worsening shortness of breath and cough x 4 days despite prednisone taper and albuterol inhaler In the ED, patient saturating 75% on 2 L of oxygen and placed on 4 L of oxygen via nasal cannula to maintain saturations. Typically wears 2 L of oxygen at bedtime only Patient met SIRS criteria with WBC 18 K, tachycardia, tachypnea. BP stable. Noted normal procalcitonin and lactate. Bio fire + Parainfluenza virus No infiltrate noted on CXR CTA chest done due to persistent hypoxia and shortness of breath on minimal exer tion; no PE/pneumonia/pleural effusion. Emphysema noted. She was treated with [id number] DuoNebs antibiotics, IV steroids, budesonide formoterol nebs Patient showed gradual improvement throughout the hospitalization with improving shortness of breath. She underwent two-step oxygen evaluation; required 2 L at rest and 6 on exertion. Patient reports she has nebulizer at home; prescription for DuoNebs provided. She completed antibiotic course during the hospitalization. She was discharged on tapering dose of prednisone. She will follow-up with pulmonology and PCP. Losartan was stopped due to persistent hyperkalemia. Patient also had hyperkalemia secondary to use of lisinopril in the past. She was started on nifedipine for better blood pressure control. Please note the above document was generated using voice recognition software. It may contain grammatical, syntax or spelling errors. Any formal questions or concerns about the content, text or information contained within the body of this dictation should be directly addressed to the provider for clarification Total Time Total Time Spent Total Time Spent (In Minutes): 45 Total Time Includes: Examination of the Patient, Discharge Planning, Medication Reconciliation, Communication With Other Providers and Other Discharge Plan Discharge Items Patient Disposition: Home - Self-Care Reason For Visit: COPD EXACERBATION Discharge Diagnosis: COPD exacerbation Activity: Resume your previous activity Non-emergency contact: Primary Care Provider Call non-emergency contact if: you have any medication questions and your symptoms worsen Follow-up/Referrals: Ivy Holden PA-C [Primary Care Provider] - (Date & Time 03/25/2024 12:00 PM Provider Ivy Holden PA-C Department [facility] ) Clarissa Pérez PA-C [Physician Blow Torch Burner] - 03/23/24 3:15 pm Diet: Regular Addtl Attending Provider Instructions: You were admitted to the hospital due to COPD exacerbation. You are treated with breathing treatment, antibiotics and oxygen during the hospitalization. You need to wear 2 L of oxygen at rest and 6 L on exertion. Please cigar packer and picker your prescription for prednisone if you have not already which was prescribed by your previous provider. Take it as follows: 1) Take 40 mg once a day for 1 day, 30 mg once a day for 2 days, 20 mg once a day for 2 days and 10 mg once a day for 2 days. 2) use nebulizer with DuoNeb every 6 hours for next 3 days. Then, you can use it on as-needed basis. Please stop taking losartan as it causes increase in your potassium level. You are prescribed nifedipine 60 mg once a day for blood pressure control. Please follow-up with your primary care doctor and crimper assembler. Pending Studies at Discharge: No Stand-Alone Forms: My [facility], Work/School Release, Smoking Cessation Medications and DC Order Prescriptions: New ipratropium-albuterol 0.5 mg-3 mg(2.5 mg base)/3 mL Solution For Nebulization 3 ml NEB Q6H Qty: 180 0RF nifedipine 60 mg tablet extended release 24hr 60 mg PO DAILY Qty: 60 0RF Continued budesonide-formoterol [Symbicort] 160-4.5 mcg/actuation Hfa Aerosol Inhaler 2 puff INHALATION BID bupropion HCl [Wellbutrin SR] 150 mg tablet sustained-release 12 hr 150 mg PO BID sertraline 50 mg tablet 50 mg PO HS calcium carbonate-vitamin D3 [Calcium 500 + D] 500 mg(1,250mg) -200 unit Tablet 1 tab PO BID atorvastatin 20 mg Tablet 20 mg PO QAM metoprolol succinate 25 mg tablet extended release 24 hr 12.5 mg PO QAM aspirin 81 mg Capsule 81 mg PO QAM benzonatate 100 mg capsule 100 mg PO TID PRN (Reason: Cough) Patient Comments: VERY SELDOM multivitamin Tablet 1 tab PO QAM phenazopyridine [Pyridium] 200 mg tablet 200 mg PO Q8H PRN (Reason: pain) Qty: 10 0RF prednisone 10 mg tablet See Rx Instructions .ROUTE .COMPLEX Rx Instructions: Take 50mg by mouth x 2 days; 40mg x 2 days; 30mg x 2 days; 20mg x 2 days; then 10mg x 2 days. As of 03/16/2024 pt has started 1st day of 40mg isosorbide mononitrate 30 mg tablet extended release 24 hr 15 mg PO QAM Spiriva Respimat 2.5 mcg/actuation mist 2 puff INHALATION QAM albuterol sulfate 90 mcg/actuation HFA aerosol inhaler 2 inh INHALATION Q4H PRN (Reason: Wheezing) Discontinued losartan 50 mg tablet 50 mg PO QAM Medical Marijuana Card 1 dose PO UD PRN (Reason: ANXIETY AND PAIN) Discharge Orders: Discharge Order (Routine); Ordered 03/21/24 Ordered By: Ming Mireles Admission Data Admit Date/Time: 03/16/24 16:13 Attending Provider: Ming Mireles Admit Provider: Escobar Martinez Primary Care Provider: Rine,Ivy A. Other Interventions: Discharge Summary Assessment (RN) Last Done: 03/21/24 12:09
== END 2024-03-21 14:14 | disposition home or self-care (01) | DRG 189 ==
LOC: ED 13:27 → SUATTDRO 16:13 → EDINP 16:13 → 2W 18:45